=== PATIENT | male | born 1945 | race Caucasian/White ===

== ENCOUNTER 2018-01-13 05:11 | Observation (INO) | payer OTHER ==
[~2018-01-13] VITALS: Ht 172.7 cm; Wt 90.7 kg
[2018-01-13] VITALS (13 sets, daily range): BP systolic 106–160; BP diastolic 47–84; PULSE 57–68; RESP 16–20; TEMP 96.6–97.8; O2SAT 91–97
[2018-01-13] MEDS ORDERED: ASPI81CH7 CHEW (05:40)
[2018-01-13] MEDS ORDERED: CITA10TA4 PO (05:40)
[2018-01-13] MEDS ORDERED: VENTAER INH (05:40)
[2018-01-13] MEDS ORDERED: OXYB5TAB8 PO (05:40)
[2018-01-13] MEDS ORDERED: FISHCAP4 PO (05:40)
[2018-01-13] MEDS ORDERED: AMLO10TA2 PO (05:40)
[2018-01-13] MEDS ORDERED: ATOR80TA45 PO (05:40)
[2018-01-13 05:48] LABS: AUTOMATED NEUTROPHIL # 6.9 TH/MM3 (1.8-7.7); BASOPHIL % 0.4 % (0.0-2.0); EOSINOPHIL # 0.3 TH/MM3 (0-0.4); HEMATOCRIT 44.4 % (39.0-51.0); HEMOGLOBIN 14.9 GM/DL (13.0-17.0); LYMPH % 24.6 % (9.0-44.0); LYMPHOCYTE # 2.6 TH/MM3 (1.0-4.8); MEAN CELL VOLUME 93.3 FL (80.0-100.0); MEAN CORPUSCULAR HEMOGLOBIN 31.4 PG (27.0-34.0); MEAN CORPUSCULAR HGB CONC 33.7 % (32.0-36.0); MEAN PLATELET VOLUME 7.6 FL (7.0-11.0); MONOCYTE # 0.7 TH/MM3 (0-0.9); PLATELET COUNT 209 TH/MM3 (150-450); RED BLOOD COUNT 4.76 MIL/MM3 (4.50-5.90); RED CELL DISTRIBUTION WIDTH 12.2 % (11.6-17.2); WHITE BLOOD COUNT 10.5 TH/MM3 (4.0-11.0)
[2018-01-13] MEDS ORDERED: SODIUM CHLOR 0.9% 1000 ML INJ 1,000 ML IV SCH (05:48)
--- NOTE | 2018-01-13 05:57 | PD ---
HPI Chief Complaint: GI Complaint Time Seen by Provider: 05:48 Travel History International Travel<30 days: No Contact w/Intl Traveler<30days: No Traveled to known affect area: No History of Present Illness HPI The patient is a 72-year-old male that woke up at approximately 3:00 in the morning and had abdominal cramping and 3 episodes of bright red stool. He has a history of diverticulosis without diverticulitis. He also has a history of a 4.2 cm abdominal aortic aneurysm. The patient denies any abdominal pain or nausea. He denies any fever. The patient fainted twice this morning, once from a standing position and wants from the sitting position. PFSH Past Medical History AAA: Yes Heart Rhythm Problems: Yes Cardiovascular Problems: Yes (PVD) High Cholesterol: Yes COPD: Yes Diverticulitis: Yes ?: Not Social History Alcohol Use: No Tobacco Use: Yes (2PPD) Substance Use: No Allergies-Medications (Allergen,Severity, Reaction): Coded Allergies: No Known Allergies (Unverified , 01/13/18) Reported Meds & Prescriptions Reported Meds & Active Scripts Active Reported Ventolin Hfa 18 GM Inh (Albuterol Sulfate) 90 Mcg/Act Aer 2 Puff INH Q4-6H PRN Fish Oil + D3 (Fish Oil-Cholecalciferol) 1,200-1,000 Mg-Unit Cap 1 Cap PO DAILY Aspirin Children's (Aspirin) 81 Mg Chew 81 Mg CHEW DAILY Amlodipine (Amlodipine Besylate) 10 Mg Tab 10 Mg PO DAILY Ditropan (Oxybutynin Chloride) 5 Mg Tab 5 Mg PO Q12HR Atorvastatin (Atorvastatin Calcium) 80 Mg Tab 80 Mg PO HS Citalopram (Citalopram Hydrobromide) 10 Mg Tab 10 Mg PO DAILY Review of Systems Except as stated in HPI: all other systems reviewed are Neg Physical Exam Narrative GENERAL: The patient is alert, oriented 3 in no apparent distress. His vital signs show blood pressure 116/57 and repeat 109/53. The rest of the vital signs are normal. SKIN: Focused skin assessment warm/dry. HEAD: Atraumatic. Normocephalic. EYES: Pupils equal and round. No scleral icterus. No injection or drainage. ENT: No nasal bleeding or discharge. Mucous membranes pink and moist. NECK: Trachea midline. No JVD. CARDIOVASCULAR: Regular rate and rhythm. No murmur appreciated. RESPIRATORY: No accessory muscle use. Clear to auscultation. Breath sounds equal bilaterally. GASTROINTESTINAL: Abdomen soft, non-tender, nondistended. Hepatic and splenic margins not palpable. No guarding or rebound is present. MUSCULOSKELETAL: No obvious deformities. No clubbing. No cyanosis. No edema. NEUROLOGICAL: Awake and alert. No obvious cranial nerve deficits. Motor grossly within normal limits. Normal speech. PSYCHIATRIC: Appropriate mood and affect; insight and judgment normal. RECTAL EXAM: No masses or tenderness, stool is Bright red strongly guaiac positive Data Data Last Documented VS Vital Signs Date Time Temp Pulse Resp B/P (MAP) Pulse Ox O2 Delivery O2 Flow Rate FiO2 01/13/18 07:01 97.8 61 18 146/66 (92) 97 Nasal Cannula 2.00 Orders Orders Complete Blood Count With Diff (01/13/18 05:24) Comprehensive Metabolic Panel (01/13/18 05:24) Prothrombin Time / Inr (Pt) (01/13/18 05:24) Act Partial Throm Time (Ptt) (01/13/18 05:24) Ecg Monitoring (01/13/18 05:24) Orthostatic Vital Signs (01/13/18 05:24) Oximetry (01/13/18 05:24) Oxygen Administration (01/13/18 05:24) Iv Access Insert/Monitor (01/13/18 05:24) Type And Screen (01/13/18 05:24) Urinalysis - C+S If Indicated (01/13/18 05:48) Sodium Chlor 0.9% 1000 Ml Inj (Ns 1000 M (01/13/18 05:48) Sodium Chloride 0.9% Flush (Ns Flush) (01/13/18 06:00) Lipase (01/13/18 05:20) Labs Laboratory Tests Test 01/13/18 05:20 White Blood Count 10.5 TH/MM3 Red Blood Count 4.76 MIL/MM3 Hemoglobin 14.9 GM/DL Hematocrit 44.4 % Mean Corpuscular Volume 93.3 FL Mean Corpuscular Hemoglobin 31.4 PG Mean Corpuscular Hemoglobin Concent 33.7 % Red Cell Distribution Width 12.2 % Platelet Count 209 TH/MM3 Mean Platelet Volume 7.6 FL Neutrophils (%) (Auto) 65.0 % Lymphocytes (%) (Auto) 24.6 % Monocytes (%) (Auto) 7.0 % Eosinophils (%) (Auto) 3.0 % Basophils (%) (Auto) 0.4 % Neutrophils # (Auto) 6.9 TH/MM3 Lymphocytes # (Auto) 2.6 TH/MM3 Monocytes # (Auto) 0.7 TH/MM3 Eosinophils # (Auto) 0.3 TH/MM3 Basophils # (Auto) 0.0 TH/MM3 CBC Comment DIFF FINAL Differential Comment Prothrombin Time 10.9 SEC Prothromb Time International Ratio 1.1 RATIO Activated Partial Thromboplast Time 25.4 SEC Blood Urea Nitrogen 17 MG/DL Creatinine 0.99 MG/DL Random Glucose 157 MG/DL Total Protein 7.0 GM/DL Albumin 3.2 GM/DL Calcium Level 9.0 MG/DL Alkaline Phosphatase 127 U/L Aspartate Amino Transf (AST/SGOT) 13 U/L Alanine Aminotransferase (ALT/SGPT) 28 U/L Total Bilirubin 0.3 MG/DL Sodium Level 141 MEQ/L Potassium Level 4.0 MEQ/L Chloride Level 109 MEQ/L Carbon Dioxide Level 26.0 MEQ/L Anion Gap 6 MEQ/L Estimat Glomerular Filtration Rate 74 ML/MIN Lipase 102 U/L [facility] Medical Decision Making Medical Screen Exam Complete: Yes Emergency Medical Condition: Yes Medical Record Reviewed: Yes Interpretation(s) The CBC shows a normal hemoglobin of 14.9. Differential Diagnosis Diverticular bleed, aorto-extremely unlikely and enteric fistula, other GI bleed Narrative Course Dr. solares is taking over the patient at this time, the patient did faint twice , once standing in one sitting and should be admitted for 23 hour observation until he is known to be stable and rehydrated. Bill Montesinos MD Jan 13, 2018 05:57
[2018-01-13 06:00] LABS: CHLORIDE 109 MEQ/L (98-107); SODIUM (NA) 141 MEQ/L (136-145)
[2018-01-13] MEDS ORDERED: SODIUM CHLORIDE 0.9% FLUSH 10 ML FLUSH IVF PRN (06:00)
[2018-01-13 06:04] LABS: ALBUMIN 3.2 GM/DL (3.4-5.0); BLOOD UREA NITROGEN 17 MG/DL (7-18); GLUCOSE,RANDOM 157 MG/DL (74-106); INTERNATIONAL NORMALIZED RATIO 1.1 RATIO; PROTHROMBIN TIME - PATIENT 10.9 SEC (9.8-11.6)
[2018-01-13 06:06] LABS: ALT (GPT) 28 U/L (12-78); AST (GOT) 13 U/L (15-37)
[2018-01-13 06:07] LABS: CREATININE 0.99 MG/DL (0.60-1.30); GLOMERULAR FILTRATION RATE 74 ML/MIN (>89)
[2018-01-13 06:08] LABS: TOTAL BILIRUBIN ADULT 0.3 MG/DL (0.2-1.0)
[2018-01-13 06:09] LABS: ALKALINE PHOSPHATASE 127 U/L (45-117)
[2018-01-13] MEDS ORDERED: SODIUM CHLORIDE 0.9% FLUSH 10 ML FLUSH IV FLUSH PRN (08:00)
[2018-01-13] MEDS ORDERED: SENNOSIDES 8.6 MG TAB PO PRN (08:00)
[2018-01-13] MEDS ORDERED: NALOXONE HCL 0.4 MG/ML AMP IV PUSH PRN (08:00)
[2018-01-13] MEDS ORDERED: ACETAMINOPHEN 325 MG TAB PO PRN (08:00)
[2018-01-13] MEDS ORDERED: LACTULOSE SYRUP 20 GM/30 ML CUP PO PRN (08:00)
[2018-01-13] MEDS ORDERED: BISACODYL 10 MG SUPP RECTAL PRN (08:00)
[2018-01-13] MEDS ORDERED: MAGNESIUM HYDROXIDE SUSP 30 ML CUP PO PRN (08:00)
--- NOTE | 2018-01-13 08:04 | PD ---
Physical Exam Date Seen by Provider: Jan 13, 2018 Narrative Care was assumed at [address] Montesinos. This patient had presented with 2 episodes of syncope following 3 episodes of grossly bloody stool. Onset was in the wee hours of the morning. Please see Dr. Montesinos's H&P for full details. This patient has a history of diverticulosis. He also has a history of a AAA which is being observed. Data Data Last Documented VS Vital Signs Date Time Temp Pulse Resp B/P (MAP) Pulse Ox O2 Delivery O2 Flow Rate FiO2 01/13/18 08:00 97 Nasal Cannula 2.00 01/13/18 07:01 97.8 61 18 146/66 (92) Orders Orders Complete Blood Count With Diff (01/13/18 05:24) Comprehensive Metabolic Panel (01/13/18 05:24) Prothrombin Time / Inr (Pt) (01/13/18 05:24) Act Partial Throm Time (Ptt) (01/13/18 05:24) Ecg Monitoring (01/13/18 05:24) Orthostatic Vital Signs (01/13/18 05:24) Oximetry (01/13/18 05:24) Oxygen Administration (01/13/18 05:24) Iv Access Insert/Monitor (01/13/18 05:24) Type And Screen (01/13/18 05:24) Urinalysis - C+S If Indicated (01/13/18 05:48) Sodium Chlor 0.9% 1000 Ml Inj (Ns 1000 M (01/13/18 05:48) Sodium Chloride 0.9% Flush (Ns Flush) (01/13/18 06:00) Lipase (01/13/18 05:20) Ct Abd/Pel W Iv Contrast(Rout) (01/13/18 07:52) Place In Observation (01/13/18 ) Vital Signs (Adult) Q4H (01/13/18 07:56) Diet Heart Healthy (01/13/18 Breakfast) Sodium Chloride 0.9% Flush (Ns Flush) (01/13/18 08:00) Sodium Chloride 0.9% Flush (Ns Flush) (01/13/18 09:00) Acetaminophen (Tylenol) (01/13/18 08:00) Complete Blood Count With Diff (01/14/18 06:00) Resp Oxygen Josue C Titrat 1-4 L (01/13/18 ) Scd Bilateral/Knee High BECIKE.BID (01/13/18 07:56) Naloxone Inj (Narcan Inj) (01/13/18 08:00) Magnesium Hydroxide Liq (Milk Of Magnesi (01/13/18 08:00) Sennosides (Senokot) (01/13/18 08:00) Bisacodyl Supp (Dulcolax Supp) (01/13/18 08:00) Lactulose Liq (Lactulose Liq) (01/13/18 08:00) Admit Order (Ed Use Only) (01/13/18 ) Vital Signs (Adult) Q4H (01/13/18 07:57) Activity Oob With Assistance (01/13/18 07:57) Notify Dr: Other (01/13/18 07:57) Labs Laboratory Tests Test 01/13/18 05:20 White Blood Count 10.5 TH/MM3 Red Blood Count 4.76 MIL/MM3 Hemoglobin 14.9 GM/DL Hematocrit 44.4 % Mean Corpuscular Volume 93.3 FL Mean Corpuscular Hemoglobin 31.4 PG Mean Corpuscular Hemoglobin Concent 33.7 % Red Cell Distribution Width 12.2 % Platelet Count 209 TH/MM3 Mean Platelet Volume 7.6 FL Neutrophils (%) (Auto) 65.0 % Lymphocytes (%) (Auto) 24.6 % Monocytes (%) (Auto) 7.0 % Eosinophils (%) (Auto) 3.0 % Basophils (%) (Auto) 0.4 % Neutrophils # (Auto) 6.9 TH/MM3 Lymphocytes # (Auto) 2.6 TH/MM3 Monocytes # (Auto) 0.7 TH/MM3 Eosinophils # (Auto) 0.3 TH/MM3 Basophils # (Auto) 0.0 TH/MM3 CBC Comment DIFF FINAL Differential Comment Prothrombin Time 10.9 SEC Prothromb Time International Ratio 1.1 RATIO Activated Partial Thromboplast Time 25.4 SEC Blood Urea Nitrogen 17 MG/DL Creatinine 0.99 MG/DL Random Glucose 157 MG/DL Total Protein 7.0 GM/DL Albumin 3.2 GM/DL Calcium Level 9.0 MG/DL Alkaline Phosphatase 127 U/L Aspartate Amino Transf (AST/SGOT) 13 U/L Alanine Aminotransferase (ALT/SGPT) 28 U/L Total Bilirubin 0.3 MG/DL Sodium Level 141 MEQ/L Potassium Level 4.0 MEQ/L Chloride Level 109 MEQ/L Carbon Dioxide Level 26.0 MEQ/L Anion Gap 6 MEQ/L Estimat Glomerular Filtration Rate 74 ML/MIN Lipase 102 U/L MDM Supervised Visit with PONCHO: No Narrative Course Vital Signs Date Time Temp Pulse Resp B/P (MAP) Pulse Ox O2 Delivery O2 Flow Rate FiO2 01/13/18 08:00 97 Nasal Cannula 2.00 01/13/18 07:01 97.8 61 18 146/66 (92) 97 Nasal Cannula 2.00 01/13/18 06:02 58 16 132/59 (83) 95 Room Air 01/13/18 05:20 95 Nasal Cannula 2.00 01/13/18 05:20 59 16 113/57 (75) 59 16 106/47 (66) 01/13/18 05:15 60 20 109/53 (71) 91 01/13/18 05:13 97.3 68 18 116/57 (76) 93 CBC & BMP Diagram 01/13/18 05:20 Total Protein 7.0, Albumin 3.2 L, Calcium Level 9.0, Alkaline Phosphatase 127 H , Aspartate Amino Transf (AST/SGOT) 13 L, Alanine Aminotransferase (ALT/SGPT) 28 , Total Bilirubin 0.3 Because of the 2 episodes of syncope, the patient will be admitted to observation to follow his vital signs and H&H. I have ordered a CT of the abdomen and pelvis to rule out another cause for GI bleeding other than diverticulosis. Physician Communication Physician Communication Dr. Osborne Admitting Information Admitting Physician Requests: Observation Condition: Stable Alis Tello MD Jan 13, 2018 08:04
[2018-01-13] MEDS: SODIUM CHLORIDE 0.9% FLUSH 10 ML FLUSH IV FLUSH SCH ×2 (09:00→21:00)
[2018-01-13 09:27] LABS: BILIRUBIN, URINE NEG (NEG); BLOOD, URINE NEG (NEG); GLUCOSE,URINE NEG (NEG); KETONE, URINE NEG (NEG); NITRITE,URINE NEG (NEG); PH, URINE 5.5 (5.0-8.5); URINE COLOR YELLOW (YELLW/STRAW); URINE LEUKOCYTE ESTERASE NEG (NEG)
[2018-01-13] MEDS ORDERED: IOHEXOL 350 MG/ML 10 ML VIAL (for RAD DIAG) IVCONTRAST ONE (09:35)
[2018-01-13 09:36] LABS: HYALINE CAST, URINE 15-19 /lpf (RARE); SQUAMOUS EPITHELIAL CELL URINE 0-2 /hpf (0-5); WBC, URINE 0-2 /hpf (0-5)
[2018-01-13 09:37] LABS: MUCUS URINE FEW /lpf (OCC)
--- NOTE | 2018-01-13 09:51 | RADRPT ---
EXAM DATE: 01/13/2018 9:35 AM EDT AGE/SEX: 72 years / Male INDICATIONS: Abdominal cramping. Rectal bleeding. CLINICAL DATA: This is the patient's initial encounter. Patient reports that signs and symptoms have been present for 1 day and indicates a pain score of 0/10. MEDICAL/SURGICAL HISTORY: Aneurysm, abdominal. Chronic obstructive pulmonary disease. Diverti culosis. None. ORAL CONTRAST: No oral contrast ingested. RADIATION DOSE: 17.44 CTDI (mGy) COMPARISON: No prior exams available for comparison. TECHNIQUE: Multiple contiguous axial images were obtained through the abdomen and pelvis following b olus infusion of 95 ml Omnipaque 350 (iohexol) nonionic water-soluble contrast as a single exam dos e. No oral contrast ingested. Using automated exposure control and adjustment of the mA and/or kV ac cording to patient size, radiation dose was kept as low as reasonably achievable to obtain optimal di agnostic quality images. DICOM format image data is available electronically for review and comparis on. FINDINGS: Lower Lungs: There is minimal linear density seen at the posterior lateral left lung base. Liver: The liver demonstrates diffuse decreased attenuation. There is a 2.8 cm cyst at the posterior right lobe of the liver. The gallbladder is nondistended. Spleen: Homogeneous density without enlargement. Pancreas: Unremarkable without mass or calcification. Kidneys: Normal in size and shape. No evidence of mass or hydronephrosis. Adrenal Glands: Unremarkable. Aorta: There is obstructive change of the aorta. There is aneurysmal dilatation of the infrarenal a bdominal aorta measuring up to 4.8 cm in diameter. The aneurysm ends at the aortic bifurcation. The a neurysm extends over approximately 7.5 cm length. Bowel/Mesentery: There are diverticula seen throughout the colon being most numerous in the sigmoid region. Surrounding inflammatory change is not clearly seen. Abdominal Wall: Intact. Retroperitoneum: No evidence of adenopathy in the retrocrural, para-aortic, or deep pelvic regions. Bladder: Contours are smooth. Reproductive Organs: The patient is status post prostatectomy. Clips are seen in the pelvis. Inguinal: The inguinal region is unremarkable without evidence of adenopathy. Bony Structures: There is a 1.1 cm focal area of sclerosis at the inferior aspect of the L2 vertebra l body. No other sclerotic lesions are seen. CONCLUSION: 1. Numerous colonic diverticula without definite inflammatory change. 2. 4.8 cm abdominal aortic aneurysm. 3. Hepatic steatosis. 4. Solitary sclerotic focus at the L2 vertebral body. This is nonspecific. A bone island could have this appearance. A sclerotic metastatic lesion could've this appearance. 5. The patient is status post prostatectomy. Electronically signed by: Segundo Ac MD 01/13/2018 9:50 AM EDT
[2018-01-13] MEDS: NICOTINE 14 MG/24 HR PATCH T-DERMAL SCH (12:40)
--- NOTE | 2018-01-13 13:34 | HHI.HP ---
HPI [facility] Admission Diagnosis GI bleed, syncope Diagnoses: Chief Complaint: Passed out, large bloody bowel movement. Travel History International Travel<30 Days: No Contact w/Intl Traveler <30 Da: No Traveled to Known Affected Are: No History of Present Illness Mr. Licea is a pleasant 72-year-old male with a history of AAA, COPD who presents to the emergency department on 01/13/2018 after he had a bright red bloody stool. He also passed out for several seconds. Patient did not have any jerking movements or confusion afterwards. Since he was admitted he has not had any further episodes of rectal bleed. On admission temperature 97.3F, pulse 68, respiration 18, blood pressure 116/57, pulse oximetry 93% on 2 L. Currently patient is on room air. Denies any chest pain, shortness of breath, fever or chills. Denies any changes in bladder habits. Review of Systems Except as stated in HPI: all other systems reviewed are Neg Past Family Social History Past Medical History AAA, PVD, hyperlipidemia, COPD, diverticulitis Past Surgical History Prostatectomy Reported Medications Ventolin Hfa 18 GM Inh (Albuterol Sulfate) 90 Mcg/Act Aer 2 Puff INH Q4-6H PRN Fish Oil + D3 (Fish Oil-Cholecalciferol) 1,200-1,000 Mg-Unit Cap 1 Cap PO DAILY Aspirin Children's (Aspirin) 81 Mg Chew 81 Mg CHEW DAILY Amlodipine (Amlodipine Besylate) 10 Mg Tab 10 Mg PO DAILY Ditropan (Oxybutynin Chloride) 5 Mg Tab 5 Mg PO Q12HR Atorvastatin (Atorvastatin Calcium) 80 Mg Tab 80 Mg PO HS Citalopram (Citalopram Hydrobromide) 10 Mg Tab 10 Mg PO DAILY Allergies: Coded Allergies: No Known Allergies (Unverified , 01/13/18) Family History Family history is unknown to patient. Social History Patient continues to smoke 1-2 pack a day. Denies using alcohol or illicit drugs. Physical Exam Vital Signs Vital Signs Date Time Temp Pulse Resp B/P (MAP) Pulse Ox O2 Delivery O2 Flow Rate FiO2 01/13/18 13:02 62 01/13/18 09:47 01/13/18 09:15 65 18 141/67 (91) 97 Nasal Cannula 2.00 01/13/18 08:00 97 Nasal Cannula 2.00 01/13/18 07:01 97.8 61 18 146/66 (92) 97 Nasal Cannula 2.00 01/13/18 06:02 58 16 132/59 (83) 95 Room Air 01/13/18 05:20 95 Nasal Cannula 2.00 01/13/18 05:20 59 16 113/57 (75) 59 16 106/47 (66) 01/13/18 05:15 60 20 109/53 (71) 91 01/13/18 05:13 97.3 68 18 116/57 (76) 93 Physical Exam GENERAL: This is a well-nourished, well-developed patient, in no apparent distress. SKIN: No rashes, ecchymoses or lesions. Warm and dry. HEAD: Atraumatic. Normocephalic. No temporal or scalp tenderness. EYES: Pupils equal round and reactive. No injection or drainage. ENT: Nose without bleeding, purulent drainage or septal hematoma. Airway patent. NECK: Trachea midline. No lymphadenopathy. Supple, nontender, no meningeal signs. CARDIOVASCULAR: Regular rate and rhythm without murmurs, gallops, or rubs. No JVD. RESPIRATORY: Clear to auscultation. Breath sounds equal bilaterally. No wheezes , rales, or rhonchi. GASTROINTESTINAL: Abdomen soft, non-tender, nondistended. No guarding. MUSCULOSKELETAL: Extremities without clubbing, cyanosis, or edema. NEUROLOGICAL: Awake and alert. Cranial nerves II through XII intact. No focal neurological deficits. Normal speech. Laboratory Laboratory Tests Test 01/13/18 05:20 01/13/18 09:05 White Blood Count 10.5 Red Blood Count 4.76 Hemoglobin 14.9 Hematocrit 44.4 Mean Corpuscular Volume 93.3 Mean Corpuscular Hemoglobin 31.4 Mean Corpuscular Hemoglobin Concent 33.7 Red Cell Distribution Width 12.2 Platelet Count 209 Mean Platelet Volume 7.6 Neutrophils (%) (Auto) 65.0 Lymphocytes (%) (Auto) 24.6 Monocytes (%) (Auto) 7.0 Eosinophils (%) (Auto) 3.0 Basophils (%) (Auto) 0.4 Neutrophils # (Auto) 6.9 Lymphocytes # (Auto) 2.6 Monocytes # (Auto) 0.7 Eosinophils # (Auto) 0.3 Basophils # (Auto) 0.0 CBC Comment DIFF FINAL Differential Comment Prothrombin Time 10.9 Prothromb Time International Ratio 1.1 Activated Partial Thromboplast Time 25.4 Blood Urea Nitrogen 17 Creatinine 0.99 Random Glucose 157 Total Protein 7.0 Albumin 3.2 Calcium Level 9.0 Alkaline Phosphatase 127 Aspartate Amino Transf (AST/SGOT) 13 Alanine Aminotransferase (ALT/SGPT) 28 Total Bilirubin 0.3 Sodium Level 141 Potassium Level 4.0 Chloride Level 109 Carbon Dioxide Level 26.0 Anion Gap 6 Estimat Glomerular Filtration Rate 74 Lipase 102 Urine Collection Type VOIDED Urine Color YELLOW Urine Turbidity CLEAR Urine pH 5.5 Urine Specific [place] 1.025 Urine Protein NEG Urine Glucose (UA) NEG Urine Ketones NEG Urine Occult Blood NEG Urine Nitrite NEG Urine Bilirubin NEG Urine Urobilinogen 0.2 Urine Leukocyte Esterase NEG Urine WBC 0-2 Urine Squamous Epithelial Cells 0-2 Urine Hyaline Casts 15-19 Urine Mucus FEW Microscopic Urinalysis Comment CULT NOT INDICATED Result Diagram: 01/13/18 0520 01/13/18 0520 Imaging Last Impressions Abdomen/Pelvis CT 01/13/18 0752 Signed Impressions: CONCLUSION: 1. Numerous colonic diverticula without definite inflammatory change. 2. 4.8 cm abdominal aortic aneurysm. 3. Hepatic steatosis. 4. Solitary sclerotic focus at the L2 vertebral body. This is nonspecific. A b one island could have this appearance. A sclerotic metastatic lesion could've t his appearance. 5. The patient is status post prostatectomy. Carotid Artery Ultrasound 01/13/18 0000 Signed Impressions: CONCLUSION: Mild plaque is seen at the carotid bulb regions without a significa nt stenosis. Caprini VTE Risk Assessment Caprini VTE Risk Assessment: Mod/High Risk (score >= 2) Caprini Risk Assessment Model Point Value = 1 Point Value = 2 Point Value = 3 Point Value = 5 Age 41-60 Minor surgery BMI > 25 kg/m2 Swollen legs Varicose veins or History of unexplained or recurrent spontaneous Oral contraceptives or hormone replacement Sepsis (< 1 month) Serious lung disease, including pneumonia (< 1 month) Abnormal pulmonary function Acute myocardial infarction Congestive heart failure (< 1 month) History of inflammatory bowel disease Medical patient at bed rest Age 61-74 Arthroscopic surgery Major open surgery (> 45 min) Laparoscopic surgery (> 45 min) Malignancy Confined to bed (> 72 hours) Immobilizing plaster cast Central venous access Age >= 75 History of VTE Family history of VTE Factor V Leiden Prothrombin [id number] Lupus anticoagulant Anticardiolipin antibodies Elevated serum homocysteine Heparin-induced thrombocytopenia Other congenital or acquired thrombophilia Stroke (< 1 month) Elective arthroplasty Hip, pelvis, or leg fracture Acute spinal cord injury (< 1 month) Prophylaxis Regimen Total Risk Factor Score Risk Level Prophylaxis Regimen 0-1 Low Early ambulation 2 Moderate Order ONE of the following: *Sequential Compression Device (SCD) *Heparin 5000 units SQ BID 3-4 Higher Order ONE of the following medications: *Heparin 5000 units SQ TID *Enoxaparin/Lovenox 40 mg SQ daily (WT < 150 kg, CrCl > 30 mL/min) *Enoxaparin/Lovenox 30 mg SQ daily (WT < 150 kg, CrCl > 10-29 mL/min) *Enoxaparin/Lovenox 30 mg SQ BID (WT < 150 kg, CrCl > 30 mL/min) AND/OR *Sequential Compression Device (SCD) 5 or more Highest Order ONE of the following medications: *Heparin 5000 units SQ TID (Preferred with Epidurals) *Enoxaparin/Lovenox 40 mg SQ daily (WT < 150 kg, CrCl > 30 mL/min) *Enoxaparin/Lovenox 30 mg SQ daily (WT < 150 kg, CrCl > 10-29 mL/min) *Enoxaparin/Lovenox 30 mg SQ BID (WT < 150 kg, CrCl > 30 mL/min) AND *Sequential Compression Device (SCD) Assessment and Plan Problem List: (1) AAA (abdominal aortic aneurysm) ICD Code: I71.4 - Abdominal aortic aneurysm, without rupture (2) Syncope, vasovagal ICD Code: R55 - Syncope and collapse (3) Rectal bleed ICD Code: K62.5 - Hemorrhage of anus and rectum Assessment and Plan Mr. Licea is a pleasant 72-year-old male with a history of PVD, AAA, COPD, hyperlipidemia who presents to the emergency department after he had a syncopal episode as well as bloody bowel movement around 3 AM in the morning. CT abdomen pelvis indicated AAA 4.8 cm. Acute rectal bleed -Hemoglobin 14.9. No further episodes of rectal bleed. -We will check CBC in the morning. -Patient can likely be evaluated in the outpatient setting in the GI clinic. Increased AAA -Previous aortic aneurysm was 4.3 cm. During this admission abdomen pelvis CT indicates AAA 4.8 cm. -We will consult vascular surgery Dr. Laird will follow this patient in the outpatient setting. -Patient might need cardiac evaluation as well prior to possible surgical intervention Tobacco abuse - counseled patient regarding tobacco cessation. Full code. Ambulation, SCDs. Symone Osborne DO Jan 13, 2018 13:34
--- NOTE | 2018-01-13 15:05 | PD.CAR.PN ---
CVT Progress Note Subjective/Hospital Course: Patient with known diverticulosis and previous GI bleed now hemoglobin is stable Patient did not have colonoscopy for about 8 years and will required that prior to any intervention patient does have 4.9 Centimeter in diameter abdominal aortic infrarenal aneurysm and in this size endovascular stenting certainly should be considered Prior to this patient needs a GI workup and cardiac workup which can be done as outpatient. In addition patient has fairly severe peripheral vascular disease but anatomic considerations are such that patient will probably be candidate for endovascular repair with a good neck Will follow patient up as outpatient Objective: Vital Signs Date Time Temp Pulse Resp B/P (MAP) Pulse Ox O2 Delivery O2 Flow Rate FiO2 01/13/18 13:02 62 01/13/18 12:00 96.6 57 16 137/73 (94) 92 01/13/18 09:47 01/13/18 09:15 65 18 141/67 (91) 97 Nasal Cannula 2.00 01/13/18 08:00 97 Nasal Cannula 2.00 01/13/18 07:01 97.8 61 18 146/66 (92) 97 Nasal Cannula 2.00 01/13/18 06:02 58 16 132/59 (83) 95 Room Air 01/13/18 05:20 95 Nasal Cannula 2.00 01/13/18 05:20 59 16 113/57 (75) 59 16 106/47 (66) 01/13/18 05:15 60 20 109/53 (71) 91 01/13/18 05:13 97.3 68 18 116/57 (76) 93 Labs: Laboratory Tests Test 01/13/18 05:20 01/13/18 09:05 White Blood Count 10.5 TH/MM3 (4.0-11.0) Red Blood Count 4.76 MIL/MM3 (4.50-5.90) Hemoglobin 14.9 GM/DL (13.0-17.0) Hematocrit 44.4 % (39.0-51.0) Mean Corpuscular Volume 93.3 FL (80.0-100.0) Mean Corpuscular Hemoglobin 31.4 PG (27.0-34.0) Mean Corpuscular Hemoglobin Concent 33.7 % (32.0-36.0) Red Cell Distribution Width 12.2 % (11.6-17.2) Platelet Count 209 TH/MM3 (150-450) Mean Platelet Volume 7.6 FL (7.0-11.0) Neutrophils (%) (Auto) 65.0 % (16.0-70.0) Lymphocytes (%) (Auto) 24.6 % (9.0-44.0) Monocytes (%) (Auto) 7.0 % (0.0-8.0) Eosinophils (%) (Auto) 3.0 % (0.0-4.0) Basophils (%) (Auto) 0.4 % (0.0-2.0) Neutrophils # (Auto) 6.9 TH/MM3 (1.8-7.7) Lymphocytes # (Auto) 2.6 TH/MM3 (1.0-4.8) Monocytes # (Auto) 0.7 TH/MM3 (0-0.9) Eosinophils # (Auto) 0.3 TH/MM3 (0-0.4) Basophils # (Auto) 0.0 TH/MM3 (0-0.2) CBC Comment DIFF FINAL Differential Comment Prothrombin Time 10.9 SEC (9.8-11.6) Prothromb Time International Ratio 1.1 RATIO Activated Partial Thromboplast Time 25.4 SEC (24.3-30.1) Blood Urea Nitrogen 17 MG/DL (7-18) Creatinine 0.99 MG/DL (0.60-1.30) Random Glucose 157 MG/DL (74-106) Total Protein 7.0 GM/DL (6.4-8.2) Albumin 3.2 GM/DL (3.4-5.0) Calcium Level 9.0 MG/DL (8.5-10.1) Alkaline Phosphatase 127 U/L (45-117) Aspartate Amino Transf (AST/SGOT) 13 U/L (15-37) Alanine Aminotransferase (ALT/SGPT) 28 U/L (12-78) Total Bilirubin 0.3 MG/DL (0.2-1.0) Sodium Level 141 MEQ/L (136-145) Potassium Level 4.0 MEQ/L (3.5-5.1) Chloride Level 109 MEQ/L (98-107) Carbon Dioxide Level 26.0 MEQ/L (21.0-32.0) Anion Gap 6 MEQ/L (5-15) Estimat Glomerular Filtration Rate 74 ML/MIN (>89) Lipase 102 U/L (73-393) Urine Collection Type VOIDED Urine Color YELLOW (YELLW/STRAW) Urine Turbidity CLEAR (CLEAR) Urine pH 5.5 (5.0-8.5) Urine Specific [place] 1.025 (1.002-1.035) Urine Protein NEG mg/dL (NEG-TRACE) Urine Glucose (UA) NEG mg/dL (NEG) Urine Ketones NEG mg/dL (NEG) Urine Occult Blood NEG (NEG) Urine Nitrite NEG (NEG) Urine Bilirubin NEG (NEG) Urine Urobilinogen 0.2 MG/DL (LESS THAN Urine Leukocyte Esterase NEG (NEG) Urine WBC 0-2 /hpf (0-5) Urine Squamous Epithelial Cells 0-2 /hpf (0-5) Urine Hyaline Casts 15-19 /lpf (RARE) Urine Mucus FEW /lpf (OCC) Microscopic Urinalysis Comment CULT NOT INDICATED Result Diagram: 01/13/1820 01/13/18 0520 Norma Bay MD Jan 13, 2018 15:05
--- NOTE | 2018-01-13 15:24 | MB ---
cc: Norma Bay MD DATE: 01/13/2018 CONSULTING PHYSICIAN: Dr. Bay, Vascular Surgery REASON FOR CONSULTATION: Abdominal aortic aneurysm. HISTORY OF PRESENT DISEASE: This 72-year-old male is admitted to the hospital with two episodes of syncope and apparently grossly bloody stool. The patient is worked up, found to have generally normal hemoglobin yet on the CT scan of the abdomen, he is found to have about a 4.9 cm abdominal aortic aneurysm in the infrarenal position. The question arises about the significance of this finding in the clinical setting, hence the consultation. PAST MEDICAL HISTORY: Previous apparently GI bleeding in the past, COPD, atrial fibrillation, peripheral vascular disease and diverticulosis. PAST SURGICAL HISTORY: The patient had prostate surgery. MEDICATIONS: Multiple and can be found in the record. SOCIAL HISTORY: The patient smokes 2 packs per day continuously. Does not drink. PHYSICAL EXAMINATION: GENERAL: Shows a pleasant 72-year-old male appearing much older than his actual age. HEENT: Normocephalic. No trauma to the head. Pupils equal, reactive. Extraocular muscles intact. NECK: Supple. Bilateral good pulses and bilateral 3/6 bruits. CHEST: Bilateral breath sounds, decreased over both lungs pickard, consistent with moderate degree of chronic obstructive pulmonary disease. HEART: Regular rhythm. ABDOMEN: Soft, active bowel sounds. Without knowing the patient's aneurysm, I could not really feel it. Scar from previous prostatectomy. EXTREMITIES: Within normal limits with no signs of acute vascular deficits, however, femoral pulses are not very strong, but are palpable both pedal, dorsalis pedis. Posterior tibial only by Doppler. The patient clearly has significant or peripheral vascular changes. BACK: Normal. IMPRESSION: A 72-year-old male with about 4.9 cm abdominal aneurysm, which has grown since he was seen here a few months ago. PLAN: At this point, the patient is in the range where endovascular repair should be considered, and I will follow the patient up as an outpatient and then scheduled him for an endovascular repair after full workup. I thank you much for referral. MD GAMA Tyler/AKBAR , 02:59 PM , 03:22 PM
--- NOTE | 2018-01-13 15:59 | RADRPT ---
EXAM DATE: 01/13/2018 3:48 PM EDT AGE/SEX: 72 years / Male INDICATIONS: Syncope. CLINICAL DATA: This is the patient's initial encounter. Patient reports that signs and symptoms have been present for 1 day and indicates a pain score of 0/10. MEDICAL/SURGICAL HISTORY: Chronic obstructive pulmonary disease. Hypercholesterolemia. Aneury sm, abdominal. Peripheral vascular disease. Irregular heartbeat. Diverticulitis. Prostate cancer. Prostatectomy. Penile implant x 3 and removal. COMPARISON: No prior exams available for comparison. VELOCITY PARAMETERS: ICA/CCA Ratio: Right 0.7 , Left 0.9 ICA: Right 71 cm/sec, Left 70 cm/sec CCA: Right 97 cm/sec, Left 74 cm/sec ECA: Right 107 cm/sec, Left 132 cm/sec Vertebral: Right 41 cm/sec antegrade, Left 41 cm/sec antegrade FINDINGS: Right Carotid: Mild arteriosclerotic plaque is visualized.The waveforms are within normal limits. Left Carotid: Mild arteriosclerotic plaque is visualized. The waveforms are within normal limits. Other: None. CONCLUSION: Mild plaque is seen at the carotid bulb regions without a significant stenosis. Electronically signed by: Segundo Ac MD 01/13/2018 3:58 PM EDT
[2018-01-14] VITALS: BP 128/68; PULSE 61; RESP 20; TEMP 96.9; O2SAT 94
[2018-01-14] MEDS ORDERED: MELATONIN 5 MG TAB PO ONE (00:15)
[2018-01-14 04:00] VITALS: BP 149/61; PULSE 62; RESP 20; TEMP 97.5; O2SAT 93
[2018-01-14 06:24] LABS: AUTOMATED NEUTROPHIL # 6.4 TH/MM3 (1.8-7.7); BASOPHIL # 0.1 TH/MM3 (0-0.2); BASOPHIL % 0.7 % (0.0-2.0); EOSINOPHIL # 0.3 TH/MM3 (0-0.4); EOSINOPHIL % 2.9 % (0.0-4.0); HEMATOCRIT 41.3 % (39.0-51.0); HEMOGLOBIN 14.1 GM/DL (13.0-17.0); LYMPH % 22.8 % (9.0-44.0); LYMPHOCYTE # 2.2 TH/MM3 (1.0-4.8); MEAN CELL VOLUME 93.2 FL (80.0-100.0); MEAN CORPUSCULAR HEMOGLOBIN 31.7 PG (27.0-34.0); MEAN CORPUSCULAR HGB CONC 34.1 % (32.0-36.0); MEAN PLATELET VOLUME 7.7 FL (7.0-11.0); MONO % 5.9 % (0.0-8.0); MONOCYTE # 0.6 TH/MM3 (0-0.9); NEUT % 67.7 % (16.0-70.0); PLATELET COUNT 195 TH/MM3 (150-450); RED BLOOD COUNT 4.43 MIL/MM3 (4.50-5.90); RED CELL DISTRIBUTION WIDTH 12.3 % (11.6-17.2); WHITE BLOOD COUNT 9.6 TH/MM3 (4.0-11.0)
--- NOTE | 2018-01-14 07:49 | HHI.PR ---
Subjective Remarks Follow-up for rectal bleed, increased abdominal aortic aneurysm. Patient is currently doing well. Resting in bed. Denies any chest pain, shortness of breath, fever or chills. He has not had any bowel movement since he came to the hospital. Denies having any further syncopal episodes. Objective Vitals Vital Signs Date Time Temp Pulse Resp B/P (MAP) Pulse Ox O2 Delivery O2 Flow Rate FiO2 01/14/18 04:00 97.5 62 20 149/61 (90) 93 01/14/18 04:00 97.5 62 20 149/61 (90) 93 01/14/18 00:00 96.9 61 20 128/68 (88) 94 01/13/18 20:00 97.2 65 18 145/71 (95) 92 01/13/18 19:48 92 21 01/13/18 16:00 96.9 62 16 160/84 (109) 96 01/13/18 15:00 63 01/13/18 13:02 62 01/13/18 12:00 96.6 57 16 137/73 (94) 92 01/13/18 09:47 01/13/18 09:15 65 18 141/67 (91) 97 Nasal Cannula 2.00 01/13/18 08:00 97 Nasal Cannula 2.00 I/O 01/13/18 01/13/18 01/13/18 01/14/18 01/14/18 01/14/18 07:00 15:00 23:00 07:00 15:00 23:00 Intake Total 1000 ml 300 ml 1020 ml 450 ml Output Total 200 ml 450 ml Balance 1000 ml 100 ml 1020 ml 0 ml Intake Oral 300 ml 1020 ml 450 ml IV Total 1000 ml Output Urine Total 200 ml 450 ml # Voids 2 4 2 # Bowel Movements 0 2 Result Diagram: 01/14/18 0542 01/13/18 0520 Imaging Last Impressions Abdomen/Pelvis CT 01/13/18 4562 Signed Impressions: CONCLUSION: 1. Numerous colonic diverticula without definite inflammatory change. 2. 4.8 cm abdominal aortic aneurysm. 3. Hepatic steatosis. 4. Solitary sclerotic focus at the L2 vertebral body. This is nonspecific. A b [place] could have this appearance. A sclerotic metastatic lesion could've t his appearance. 5. The patient is status post prostatectomy. Carotid Artery Ultrasound 01/13/18 0000 Signed Impressions: CONCLUSION: Mild plaque is seen at the carotid bulb regions without a significa nt stenosis. Objective Remarks GENERAL: Alert, oriented 3, NAD. SKIN: Warm and dry. HEAD: Normocephalic. EYES: No scleral icterus. No injection or drainage. NECK: Supple, trachea midline. No JVD or lymphadenopathy. CARDIOVASCULAR: Regular rate and rhythm without murmurs, gallops, or rubs. RESPIRATORY: Breath sounds equal bilaterally. No accessory muscle use. GASTROINTESTINAL: Abdomen soft, non-tender, nondistended. MUSCULOSKELETAL: No cyanosis, or edema. BACK: Nontender without obvious deformity. No CVA tenderness. Procedures None A/P Problem List: (1) AAA (abdominal aortic aneurysm) ICD Code: I71.4 - Abdominal aortic aneurysm, without rupture (2) Syncope, vasovagal ICD Code: R55 - Syncope and collapse (3) Rectal bleed ICD Code: K62.5 - Hemorrhage of anus and rectum Assessment and Plan Mr. Licea is a pleasant 72-year-old male with a history of PVD, AAA, COPD, hyperlipidemia who presents to the emergency department after he had a syncopal episode as well as bloody bowel movement around 3 AM in the morning. CT abdomen pelvis indicated AAA 4.8 cm. Acute rectal bleed -Hemoglobin 14.9 --> 14.1. No further episodes of rectal bleed. Slight decrease in Hgb could be due to hemodilution. -Patient can likely be evaluated in the outpatient setting in the GI clinic. Increased AAA -Previous aortic aneurysm was 4.3 cm. During this admission abdomen pelvis CT indicates AAA 4.8 cm. -vascular surgery Dr. Laird will follow this patient in the outpatient setting. -Patient might need cardiac evaluation as well prior to possible surgical intervention Tobacco abuse - counseled patient regarding tobacco cessation. Full code. Ambulation, SCDs. Discharge patient to home Condition on discharge: Improved Heart healthy Diet as tolerated Ad Cyn activity Rx written: Continue home medications. Follow-up with primary care physician within 1 week. Also follow-up with cardiology and gastroenterology. Patient will need cardiac and gastroenterology evaluation before possible AAA repair. Follow-up with vascular surgery. Symone Osborne DO Jan 14, 2018 07:49
[2018-01-14 08:00] VITALS: BP 134/63; PULSE 61; RESP 18; TEMP 98.2; O2SAT 93
[2018-01-14] MEDS ORDERED: SOD PHOSPHATE/SOD BIPHOSPHATE (ADULT) ENEMA 133ML RECTAL PRN (08:00)
[2018-01-14] MEDS: NICOTINE 14 MG/24 HR PATCH T-DERMAL SCH (08:22)
[2018-01-14] MEDS: SODIUM CHLORIDE 0.9% FLUSH 10 ML FLUSH IV FLUSH SCH (08:23)
[2018-01-14] MEDS ORDERED: REMOVE OLD PATCH T-DERMAL SCH (09:00)
== END 2018-01-14 10:57 | disposition home or self-care (01) ==
LOC: PHED 05:11 → PHEDA 08:01 → PH3A 10:04
PROVIDERS: ADMIT Hospitalist; ATTEND Hospitalist
DX: I71.4 Abdominal aortic aneurysm, without rupture (principal); R55 Syncope and collapse; K62.5 Hemorrhage of anus and rectum; J44.9 Chronic obstructive pulmonary disease, unspecified; I73.9 Peripheral vascular disease, unspecified; E78.5 Hyperlipidemia, unspecified; K57.30 Diverticulosis of large intestine without perforation or abscess without bleeding; K76.0 Fatty (change of) liver, not elsewhere classified; F17.200 Nicotine dependence, unspecified, uncomplicated; Z79.899 Other long term (current) drug therapy; Z79.82 Long term (current) use of aspirin
CPT/HCPCS: 74177; 80053; 81001; 83690; 85025; 85610; 85730; 86850; 86900; 86901; 93880; 96360; 99285; G0378; J7030; Q9967

== ENCOUNTER 2018-01-15 09:34 | Inpatient (IN) | payer OTHER, MEDICARE ==
[2018-01-15] VITALS (9 sets, daily range): BP systolic 100–149; BP diastolic 51–68; PULSE 59–66; RESP 18–20; TEMP 98.8; O2SAT 91–95
[~2018-01-15] VITALS: Ht 170.2 cm; Wt 88.6 kg
[~2018-01-15 09:34] MED LIST: AMLO10TA2 PO; ASPI81CH7 CHEW; ATOR80TA45 PO; CITA10TA4 PO; FISHCAP4 PO; OXYB5TAB8 PO; VENTAER INH
--- NOTE | 2018-01-15 10:54 | PD ---
HPI Chief Complaint: Syncope/Near-Syncope Time Seen by Provider: 10:34 Travel History International Travel<30 days: No Contact w/Intl Traveler<30days: No Traveled to known affect area: No History of Present Illness HPI Patient was admitted to [facility] on Thursday for diverticular bleed. States that this morning he noticed dark red blood in his stool and he felt weak. He was discharged from [facility] on yesterday. Denies hemoptysis, or vomiting blood, fever, chills, chest pain, shortness of breath, abdominal pain. Ports of feeling dizzy and weak like he was going to faint. Takes aspirin 81 mg which he took this morning. PFSH Past Medical History AAA: Yes Heart Rhythm Problems: Yes Cancer: Yes (prostate CA) Cardiovascular Problems: Yes (PVD) High Cholesterol: Yes Chemotherapy: No COPD: Yes Diminished Hearing: No Diverticulitis: Yes Reproductive: Yes (prostate removal 2001) Radiation Therapy: No Tetanus Vaccination: Unknown Influenza Vaccination: Yes Past Surgical History Genitourinary Surgery: Yes (penile implant x3 and implant removal /prostate removal) Social History Alcohol Use: No Tobacco Use: Yes (2PPD) Substance Use: No Allergies-Medications (Allergen,Severity, Reaction): Coded Allergies: No Known Allergies (Unverified , 01/13/18) Reported Meds & Prescriptions Reported Meds & Active Scripts Active Reported Ventolin Hfa 18 GM Inh (Albuterol Sulfate) 90 Mcg/Act Aer 2 Puff INH Q4-6H PRN Fish Oil + D3 (Fish Oil-Cholecalciferol) 1,200-1,000 Mg-Unit Cap 1 Cap PO DAILY Aspirin Children's (Aspirin) 81 Mg Chew 81 Mg CHEW DAILY Amlodipine (Amlodipine Besylate) 10 Mg Tab 10 Mg PO DAILY Ditropan (Oxybutynin Chloride) 5 Mg Tab 5 Mg PO Q12HR Atorvastatin (Atorvastatin Calcium) 80 Mg Tab 80 Mg PO HS Citalopram (Citalopram Hydrobromide) 10 Mg Tab 10 Mg PO DAILY Review of Systems Except as stated in HPI: all other systems reviewed are Neg Physical Exam Narrative GENERAL: No acute distress. SKIN: Focused skin assessment warm/dry. HEAD: Atraumatic. Normocephalic. EYES: Pupils equal and round. No scleral icterus. No injection or drainage. ENT: No nasal bleeding or discharge. Mucous membranes pink and moist. NECK: Trachea midline. No JVD. CARDIOVASCULAR: Regular rate and rhythm. No murmur appreciated. RESPIRATORY: No accessory muscle use. Clear to auscultation. Breath sounds equal bilaterally. GASTROINTESTINAL: Abdomen soft, non-tender, obese. Hepatic and splenic margins not palpable. Rectal: Bright red blood, Hemoccult positive MUSCULOSKELETAL: No obvious deformities. No clubbing. No cyanosis. No edema. NEUROLOGICAL: Awake and alert. No obvious cranial nerve deficits. Motor grossly within normal limits. Normal speech. PSYCHIATRIC: Appropriate mood and affect; insight and judgment normal. Data Data Last Documented VS Vital Signs Date Time Temp Pulse Resp B/P (MAP) Pulse Ox O2 Delivery O2 Flow Rate FiO2 01/15/18 12:00 66 18 119/54 (75) 95 01/15/18 10:30 Room Air 01/15/18 09:56 2.00 Orders Orders Electrocardiogram (01/15/18 10:15) Complete Blood Count With Diff (01/15/18 10:15) Comprehensive Metabolic Panel (01/15/18 10:15) Prothrombin Time / Inr (Pt) (01/15/18 10:15) Act Partial Throm Time (Ptt) (01/15/18 10:15) Magnesium (Mg) (01/15/18 10:15) Chest, Single Ap (01/15/18 10:15) Ecg Monitoring (01/15/18 10:15) Oximetry (01/15/18 10:15) Orthostatic Vital Signs (01/15/18 10:15) Sodium Chlor 0.9% 1000 Ml Inj (Ns 1000 M (01/15/18 11:00) Red Blood Cells (Rbc) (01/15/18 10:48) Type And Screen (01/15/18 09:55) Admit Order (Ed Use Only) (01/15/18 12:24) Labs Laboratory Tests Test 01/15/18 09:53 White Blood Count 10.1 TH/MM3 Red Blood Count 4.24 MIL/MM3 Hemoglobin 13.3 GM/DL Hematocrit 38.0 % Mean Corpuscular Volume 89.7 FL Mean Corpuscular Hemoglobin 31.4 PG Mean Corpuscular Hemoglobin Concent 35.0 % Red Cell Distribution Width 13.3 % Platelet Count 200 TH/MM3 Mean Platelet Volume 7.9 FL Neutrophils (%) (Auto) 69.7 % Lymphocytes (%) (Auto) 21.2 % Monocytes (%) (Auto) 6.4 % Eosinophils (%) (Auto) 2.4 % Basophils (%) (Auto) 0.3 % Neutrophils # (Auto) 7.0 TH/MM3 Lymphocytes # (Auto) 2.1 TH/MM3 Monocytes # (Auto) 0.6 TH/MM3 Eosinophils # (Auto) 0.2 TH/MM3 Basophils # (Auto) 0.0 TH/MM3 CBC Comment DIFF FINAL Differential Comment Prothrombin Time 10.7 SEC Prothromb Time International Ratio 1.1 RATIO Activated Partial Thromboplast Time 23.5 SEC Blood Urea Nitrogen 16 MG/DL Creatinine 1.01 MG/DL Random Glucose 122 MG/DL Total Protein 6.5 GM/DL Albumin 3.2 GM/DL Calcium Level 8.3 MG/DL Magnesium Level 2.2 MG/DL Alkaline Phosphatase 107 U/L Aspartate Amino Transf (AST/SGOT) 14 U/L Alanine Aminotransferase (ALT/SGPT) 27 U/L Total Bilirubin 0.5 MG/DL Sodium Level 140 MEQ/L Potassium Level 4.1 MEQ/L Chloride Level 107 MEQ/L Carbon Dioxide Level 25.3 MEQ/L Anion Gap 8 MEQ/L Estimat Glomerular Filtration Rate 73 ML/MIN [facility] Medical Decision Making Medical Screen Exam Complete: Yes Emergency Medical Condition: Yes Interpretation(s) ECG: Sinus rhythm, rate 63, incomplete right bundle branch block Labs: Normal white count, hematocrit slightly decreased at 38, coags normal, chemistry slightly increased glucose Last Impressions Chest X-Ray 01/15/18 1015 Signed Impressions: CONCLUSION: No acute cardiopulmonary findings. Differential Diagnosis Upper GI bleed, lower GI bleed, diverticular bleed, anemia, orthostasis Narrative Course Patient presents to the emergency department complaining of bloody stool. Patient placed on cafeteria monitor, IV access obtained, labs/orthostatic/IV fluids ordered. Bolus x 1 L ordered, then 84cc/hr. Diagnosis Primary Impression: Rectal bleed Admitting Information Admitting Physician Requests: Observation Condition: Stable Annette Pickard MD Jan 15, 2018 10:54
[2018-01-15] MEDS ORDERED: SODIUM CHLOR 0.9% 1000 ML INJ 1,000 ML IV ONE (11:00)
[2018-01-15 11:24] LABS: BASOPHIL % 0.3 % (0.0-2.0); EOSINOPHIL # 0.2 TH/MM3 (0-0.4); EOSINOPHIL % 2.4 % (0.0-4.0); HEMOGLOBIN 13.3 GM/DL (13.0-17.0); LYMPH % 21.2 % (9.0-44.0); LYMPHOCYTE # 2.1 TH/MM3 (1.0-4.8); MEAN CELL VOLUME 89.7 FL (80.0-100.0); MEAN CORPUSCULAR HEMOGLOBIN 31.4 PG (27.0-34.0); MEAN PLATELET VOLUME 7.9 FL (7.0-11.0); MONO % 6.4 % (0.0-8.0); MONOCYTE # 0.6 TH/MM3 (0-0.9); NEUT % 69.7 % (16.0-70.0); PLATELET COUNT 200 TH/MM3 (150-450); RED BLOOD COUNT 4.24 MIL/MM3 (4.50-5.90); RED CELL DISTRIBUTION WIDTH 13.3 % (11.6-17.2); WHITE BLOOD COUNT 10.1 TH/MM3 (4.0-11.0)
[2018-01-15 11:36] LABS: INTERNATIONAL NORMALIZED RATIO 1.1 RATIO; PROTHROMBIN TIME - PATIENT 10.7 SEC (9.8-11.6)
[2018-01-15 11:39] LABS: ALBUMIN 3.2 GM/DL (3.4-5.0); AST (GOT) 14 U/L (15-37); BICARBONATE 25.3 MEQ/L (21.0-32.0); BLOOD UREA NITROGEN 16 MG/DL (7-18); CALCIUM 8.3 MG/DL (8.5-10.1); CHLORIDE 107 MEQ/L (98-107); CREATININE 1.01 MG/DL (0.60-1.30); GLOMERULAR FILTRATION RATE 73 ML/MIN (>89); GLUCOSE,RANDOM 122 MG/DL (74-106); MAGNESIUM 2.2 MG/DL (1.5-2.5); SODIUM (NA) 140 MEQ/L (136-145)
[2018-01-15 11:41] LABS: ALT (GPT) 27 U/L (12-78)
[2018-01-15 11:42] LABS: ALKALINE PHOSPHATASE 107 U/L (45-117); TOTAL BILIRUBIN ADULT 0.5 MG/DL (0.2-1.0); TOTAL PROTEIN 6.5 GM/DL (6.4-8.2)
--- NOTE | 2018-01-15 11:53 | RADRPT ---
EXAM DATE: 01/15/2018 11:42 AM EDT AGE/SEX: 72 years / Male INDICATIONS: Short of breath and dizziness. CLINICAL DATA: This is the patient's initial encounter. Patient reports that signs and symptoms have been present for 1 day and indicates a pain score of 0/10. MEDICAL/SURGICAL HISTORY: . Chronic obstructive pulmonary disease. Hypercholesterolemia. Aneury sm, abdominal. Peripheral vascular disease. Irregular heartbeat. Diverticulitis. Prostate cancer. . Prostatectomy. Penile implant x 3 and removal. COMPARISON: No prior exams available for comparison. FINDINGS: A single AP view of the chest demonstrates the lungs to be symmetrically aerated without evidence of mass, infiltrate or effusion. The cardiomediastinal contours are unremarkable. Osseous structures a re intact. CONCLUSION: No acute cardiopulmonary findings. Electronically signed by: Jose Enrique Pierre MD 01/15/2018 11:52 AM EDT
[2018-01-15] MEDS ORDERED: IODIXANOL 320 MG/ML 50 ML VIAL (for RAD SPEC) I-ARTERIAL ONE (12:27)
--- NOTE | 2018-01-15 12:29 | EKG ---
Date Performed: 01/15/2018 Time Performed: 09:52:18 PTAGE: 72 years EKG: Sinus rhythm INCOMPLETE RIGHT BUNDLE BRANCH BLOCK BORDERLINE ECG NO PREVIOUS TRACING DOCTOR: Pete Barker Interpretating Date/Time 01/15/2018 12:26:11
[2018-01-15] MEDS ORDERED: SODIUM CHLORIDE 0.9% FLUSH 10 ML FLUSH IV FLUSH PRN (13:15)
[2018-01-15] MEDS ORDERED: NALOXONE HCL 0.4 MG/ML AMP IV PUSH PRN (13:15)
--- NOTE | 2018-01-15 15:21 | HHI.HP ---
HPI Service [facility] Hospitalists Primary Care Physician [facility] Admission Diagnosis GI bleed Diagnoses: Chief Complaint: Syncope Travel History International Travel<30 Days: No Contact w/Intl Traveler <30 Da: No Traveled to Known Affected Are: No History of Present Illness This is a 72-year-old male with past medical history as detailed below who presents to [facility] complaining of an episode of dark red blood in the stool and feeling weak. As per patient's who is at bedside states he passed out. The patient was recently [place] after an episode of diverticular bleed. The patient denies nausea, vomiting, hemoptysis , vomiting blood, fevers, chills, chest pain, shortness of breath, states he feels very weak and starts feeling dizzy when he sits up or stands up. The patient is on aspirin 81 mg daily which he took this morning. Review of Systems As per HPI, other systems reviewed by me and negative. Past Family Social History Past Medical History AAA, PVD, hyperlipidemia, COPD, diverticulitis Past Surgical History Prostatectomy Reported Medications Current Medications Medications (Trade) Dose Ordered Sig/Olu Route Start Time Stop Time Status Last Admin Sodium Chloride 1,000 ml @ 100 mls/hr Q10H IV 01/15/18 14:00 (NS Flush) 2 ml UNSCH PRN IV FLUSH 01/15/18 13:15 (NS Flush) 2 ml BID IV FLUSH 01/15/18 21:00 (Narcan Inj) 0.4 mg UNSCH PRN IV PUSH 01/15/18 13:15 Sodium Chloride 1,000 ml @ 84 mls/hr [id number] IV 01/15/18 13:45 Allergies: Coded Allergies: No Known Allergies (Unverified , 01/13/18) Active Ordered Medications Current Medications Medications (Trade) Dose Ordered Sig/Olu Route Start Time Stop Time Status Last Admin Sodium Chloride 1,000 ml @ 100 mls/hr Q10H IV 01/15/18 14:00 (NS Flush) 2 ml UNSCH PRN IV FLUSH 01/15/18 13:15 (NS Flush) 2 ml BID IV FLUSH 01/15/18 21:00 (Narcan Inj) 0.4 mg UNSCH PRN IV PUSH 01/15/18 13:15 Sodium Chloride 1,000 ml @ 84 mls/hr [id number] IV 01/15/18 13:45 Family History Family history is unknown to patient. Social History Patient continues to smoke 1-2 pack a day. Denies using alcohol or illicit drugs. Physical Exam Vital Signs Vital Signs Date Time Temp Pulse Resp B/P (MAP) Pulse Ox O2 Delivery O2 Flow Rate FiO2 01/15/18 13:00 63 18 149/68 (95) 94 Room Air 2.00 01/15/18 12:00 66 18 119/54 (75) 95 01/15/18 11:00 65 18 119/51 (73) 95 01/15/18 10:57 72 18 119/51 (73) 01/15/18 10:54 57 18 110/55 (73) 01/15/18 10:30 60 18 104/51 (68) 94 Room Air 01/15/18 10:00 95 Room Air 01/15/18 09:56 59 18 104/51 (68) 95 Nasal Cannula 2.00 01/15/18 09:44 65 18 100/54 (69) 92 Physical Exam GENERAL: This is a well-nourished, well-developed patient, in no apparent distress. SKIN: No rashes, ecchymoses or lesions. Cool and dry. HEAD: Atraumatic. Normocephalic. No temporal or scalp tenderness. EYES: Pupils equal round and reactive. Extraocular motions intact. No scleral icterus. No injection or drainage. ENT: Nose without bleeding, purulent drainage or septal hematoma. Throat without erythema, tonsillar hypertrophy or exudate. Uvula midline. Airway patent. NECK: Trachea midline. No JVD or lymphadenopathy. Supple, nontender, no meningeal signs. CARDIOVASCULAR: Regular rate and rhythm without murmurs, gallops, or rubs. RESPIRATORY: Clear to auscultation. Breath sounds equal bilaterally. No wheezes , rales, or rhonchi. GASTROINTESTINAL: Abdomen soft, non-tender, nondistended. No hepato-splenomegaly , or palpable masses. No guarding. MUSCULOSKELETAL: Extremities without clubbing, cyanosis, or edema. No joint tenderness, effusion, or edema noted. No calf tenderness. Negative Homans sign bilaterally. NEUROLOGICAL: Awake and alert. Cranial nerves II through XII intact. Motor and sensory grossly within normal limits. Five out of 5 muscle strength in all muscle groups. Normal speech. Laboratory Laboratory Tests Test 01/15/18 09:53 White Blood Count 10.1 Red Blood Count 4.24 Hemoglobin 13.3 Hematocrit 38.0 Mean Corpuscular Volume 89.7 Mean Corpuscular Hemoglobin 31.4 Mean Corpuscular Hemoglobin Concent 35.0 Red Cell Distribution Width 13.3 Platelet Count 200 Mean Platelet Volume 7.9 Neutrophils (%) (Auto) 69.7 Lymphocytes (%) (Auto) 21.2 Monocytes (%) (Auto) 6.4 Eosinophils (%) (Auto) 2.4 Basophils (%) (Auto) 0.3 Neutrophils # (Auto) 7.0 Lymphocytes # (Auto) 2.1 Monocytes # (Auto) 0.6 Eosinophils # (Auto) 0.2 Basophils # (Auto) 0.0 CBC Comment DIFF FINAL Differential Comment Prothrombin Time 10.7 Prothromb Time International Ratio 1.1 Activated Partial Thromboplast Time 23.5 Blood Urea Nitrogen 16 Creatinine 1.01 Random Glucose 122 Total Protein 6.5 Albumin 3.2 Calcium Level 8.3 Magnesium Level 2.2 Alkaline Phosphatase 107 Aspartate Amino Transf (AST/SGOT) 14 Alanine Aminotransferase (ALT/SGPT) 27 Total Bilirubin 0.5 Sodium Level 140 Potassium Level 4.1 Chloride Level 107 Carbon Dioxide Level 25.3 Anion Gap 8 Estimat Glomerular Filtration Rate 73 Result Diagram: 01/15/18 0953 01/15/18 0953 Imaging Last Impressions Chest X-Ray 01/15/18 1015 Signed Impressions: CONCLUSION: No acute cardiopulmonary findings. Caprini VTE Risk Assessment Caprini VTE Risk Assessment: Mod/High Risk (score >= 2) VTE Pharm Contraindication: Active bleeding Caprini Risk Assessment Model Point Value = 1 Point Value = 2 Point Value = 3 Point Value = 5 Age 41-60 Minor surgery BMI > 25 kg/m2 Swollen legs Varicose veins or History of unexplained or recurrent spontaneous Oral contraceptives or hormone replacement Sepsis (< 1 month) Serious lung disease, including pneumonia (< 1 month) Abnormal pulmonary function Acute myocardial infarction Congestive heart failure (< 1 month) History of inflammatory bowel disease Medical patient at bed rest Age 61-74 Arthroscopic surgery Major open surgery (> 45 min) Laparoscopic surgery (> 45 min) Malignancy Confined to bed (> 72 hours) Immobilizing plaster cast Central venous access Age >= 75 History of VTE Family history of VTE Factor V Leiden Prothrombin [id number] Lupus anticoagulant Anticardiolipin antibodies Elevated serum homocysteine Heparin-induced thrombocytopenia Other congenital or acquired thrombophilia Stroke (< 1 month) Elective arthroplasty Hip, pelvis, or leg fracture Acute spinal cord injury (< 1 month) Prophylaxis Regimen Total Risk Factor Score Risk Level Prophylaxis Regimen 0-1 Low Early ambulation 2 Moderate Order ONE of the following: *Sequential Compression Device (SCD) *Heparin 5000 units SQ BID 3-4 Higher Order ONE of the following medications: *Heparin 5000 units SQ TID *Enoxaparin/Lovenox 40 mg SQ daily (WT < 150 kg, CrCl > 30 mL/min) *Enoxaparin/Lovenox 30 mg SQ daily (WT < 150 kg, CrCl > 10-29 mL/min) *Enoxaparin/Lovenox 30 mg SQ BID (WT < 150 kg, CrCl > 30 mL/min) AND/OR *Sequential Compression Device (SCD) 5 or more Highest Order ONE of the following medications: *Heparin 5000 units SQ TID (Preferred with Epidurals) *Enoxaparin/Lovenox 40 mg SQ daily (WT < 150 kg, CrCl > 30 mL/min) *Enoxaparin/Lovenox 30 mg SQ daily (WT < 150 kg, CrCl > 10-29 mL/min) *Enoxaparin/Lovenox 30 mg SQ BID (WT < 150 kg, CrCl > 30 mL/min) AND *Sequential Compression Device (SCD) Assessment and Plan Problem List: (1) Syncope, vasovagal ICD Code: R55 - Syncope and collapse (2) AAA (abdominal aortic aneurysm) ICD Code: I71.4 - Abdominal aortic aneurysm, without rupture (3) Rectal bleed ICD Code: K62.5 - Hemorrhage of anus and rectum Assessment and Plan Place patient on outpatient observation Monitor hemoglobin -hemoglobin stable at 13.3 down from 14.1 on previous day Consult GI for ablation for EGD and colonoscopy. We will place on a Protonix drip. IV fluids N.p.o. except medications for now. Hold aspirin. Hold antihypertensive medications since patient was hypotensive. Continue statin Patient had AAA evaluated by Dr. Jacobo who recommended endovascular repair as an outpatient. SCDs for DVT prophylaxis. Code Status Full code Discussed Condition With ED physician, patient and patient's , RN. Rafy Gamboa MD Jan 15, 2018 15:21
[2018-01-15] MEDS: SODIUM CHLOR 0.9% 1000 ML INJ 1,000 ML IV SCH ×3 (16:54→23:33)
--- NOTE | 2018-01-15 17:30 | PD.CONS ---
HPI History of Present Illness This is a 72 year old male who was brought to the hospital on 01/15/2018 to [place] for symptoms of dark maroon bloody stools. Onset of symptoms started this early a.m. 2 different episodes which included symptoms of diaphoresis, dizziness and syncopal episode. Patient is also complaining of recent headaches unknown cause. According to the medical history and the patient and his he was admitted at [facility] several days ago with the same symptoms of rectal bleeding 3 or 4 times total events, stable hemoglobin, and syncopal episode. He was evaluated per Dr. Laird and was to follow him outpatient for known AAA endovascular repair as an outpatient. Patient and his were also told to follow-up with GI as an outpatient. Currently patient is alert a fair historian and attempting to answer simple questions appropriately. Patient does note he takes aspirin 81 mg daily but no other known anticoagulation. Last EGD and colonoscopy was 9 or 10 years ago when the [facility]. He does note a history of polyps. Currently patient denies any nausea or vomiting, dysphagia or dyspepsia. Patient has noted some mild abdominal cramping to his often known but denies any current abdominal pain current hemoglobin is 13.3, INR 1.1, bilirubin and LFTs within normal range. Patient does note a history of constipation and some straining with stools and he is known to take stool softeners and/or laxatives at home for his bowel regimen. (Yisel Muniz) PFSH Past Medical History AAA, PVD, hyperlipidemia, COPD, diverticulitis Past Surgical History Prostatectomy (Yisel Muniz) Coded Allergies: No Known Allergies (Unverified , 01/13/18) Medications Administered Medications Medications (Trade) Dose Ordered Sig/Olu Route PRN Reason Start Time Stop Time Status Last Admin Dose Admin Sodium Chloride 1,000 ml @ 84 mls/hr [id number] IV 01/15/18 13:45 01/15/18 16:54 Family History Family history is unknown to patient. Social History Patient continues to smoke 1-2 pack a day. Denies using alcohol or illicit drugs. No known family history of colon cancer (Yisel Muniz) Review of Systems Ears, nose, mouth, throat: COMPLAINS OF: Vertigo Gastrointestinal: COMPLAINS OF: Bloody stools (Yisel Muniz) GI Exam Vitals I&O Vital Signs Date Time Temp Pulse Resp B/P (MAP) Pulse Ox O2 Delivery O2 Flow Rate FiO2 01/15/18 13:00 63 18 149/68 (95) 94 Room Air 2.00 01/15/18 12:00 66 18 119/54 (75) 95 01/15/18 11:00 65 18 119/51 (73) 95 01/15/18 10:57 72 18 119/51 (73) 01/15/18 10:54 57 18 110/55 (73) 01/15/18 10:30 60 18 104/51 (68) 94 Room Air 01/15/18 10:00 95 Room Air 01/15/18 09:56 59 18 104/51 (68) 95 Nasal Cannula 2.00 01/15/18 09:44 65 18 100/54 (69) 92 Imaging Last Impressions Chest X-Ray 01/15/18 1015 Signed Impressions: CONCLUSION: No acute cardiopulmonary findings. Laboratory Test 01/15/18 09:53 White Blood Count 10.1 TH/MM3 Red Blood Count 4.24 MIL/MM3 Hemoglobin 13.3 GM/DL Hematocrit 38.0 % Mean Corpuscular Volume 89.7 FL Mean Corpuscular Hemoglobin 31.4 PG Mean Corpuscular Hemoglobin Concent 35.0 % Red Cell Distribution Width 13.3 % Platelet Count 200 TH/MM3 Mean Platelet Volume 7.9 FL Neutrophils (%) (Auto) 69.7 % Lymphocytes (%) (Auto) 21.2 % Monocytes (%) (Auto) 6.4 % Eosinophils (%) (Auto) 2.4 % Basophils (%) (Auto) 0.3 % Neutrophils # (Auto) 7.0 TH/MM3 Lymphocytes # (Auto) 2.1 TH/MM3 Monocytes # (Auto) 0.6 TH/MM3 Eosinophils # (Auto) 0.2 TH/MM3 Basophils # (Auto) 0.0 TH/MM3 CBC Comment DIFF FINAL Differential Comment Prothrombin Time 10.7 SEC Prothromb Time International Ratio 1.1 RATIO Activated Partial Thromboplast Time 23.5 SEC Blood Urea Nitrogen 16 MG/DL Creatinine 1.01 MG/DL Random Glucose 122 MG/DL Total Protein 6.5 GM/DL Albumin 3.2 GM/DL Calcium Level 8.3 MG/DL Magnesium Level 2.2 MG/DL Alkaline Phosphatase 107 U/L Aspartate Amino Transf (AST/SGOT) 14 U/L Alanine Aminotransferase (ALT/SGPT) 27 U/L Total Bilirubin 0.5 MG/DL Sodium Level 140 MEQ/L Potassium Level 4.1 MEQ/L Chloride Level 107 MEQ/L Carbon Dioxide Level 25.3 MEQ/L Anion Gap 8 MEQ/L Estimat Glomerular Filtration Rate 73 ML/MIN Physical Examination HEENT: normocephalic; atraumatic; no jaundice. NECK: Supple CHEST: Mild diminished breath sounds, cough, mild rhonchi and occasional wheeze noted CARDIAC: Regular rate and rhythm with no murmur gallop or rubs. ABDOMEN: Round, soft, nondistended, nontender; no hepatosplenomegaly; bowel sounds are present in all four quadrants. EXTREMITIES: No clubbing, cyanosis, or edema. SKIN: melissa, no rash no jaundice FINAL ARMATURE TESTER: Awake, answers simple questions appropriately (Yisel Muniz) Assessment and Plan Assessment: (1) Rectal bleed ICD Codes: K62.5 - Hemorrhage of anus and rectum Plan Rectal bleeding maroon-colored dark stools, possible diverticular bleed. Versus polyps Borderline anemia current hemoglobin 13.3 Syncopal episode with rectal bleeding probably ,vasovagal 72-year-old male who was evaluated in the [facility] several days ago for the same symptoms of rectal bleeding dark maroon stools. Patient had stable hemoglobin and was to follow-up with GI on an outpatient basis but he had returned symptoms this a.m of multiple dark maroon stools generalized weakness and fatigue. Patient also had syncopal episodes with his rectal bleeding which could have been vasovagal. Also has history of aneurysm being evaluated per Dr. Laird and worked up on an outpatient basis. Patient had EGD colonoscopy 9 or 10 years ago in the [facility] and states a history of polyps. Patient currently denies any nausea vomiting, dyspepsia, dysphagia, hematemesis. Patient is borderline anemic with hemoglobin 13.3 and GI bleed. Patient's also been a long-term smoker states 2-3 packs a day. [facility] and [facility]. Plan Clear liquids/diet N.p.o. at midnight except for medications Consent for EGD colonoscopy in the a.m. [facility] prep Hold any anticoagulants Monitor labs with special attention to hemoglobin Supportive care to patient and his Further recommendations to follow Patient was seen per myself and Dr. Stevens, this note was written on her behalf (Yisel Muniz) Physician Comments seen, examined agree with above bleeding scan stat egd/colon in am transfuse prn monitor hb/ht clear liquid diet (Briana Stevens MD) Yisel Muniz Jan 15, 2018 17:30 Briana Stevens MD Jan 15, 2018 17:34
[2018-01-15] MEDS ORDERED: PEG (High)/E-LYTE SOLN 4000 ML BTL PO ONE (17:45)
[2018-01-15] MEDS: REMOVE OLD PATCH T-DERMAL SCH (21:00)
--- NOTE | 2018-01-15 23:21 | RADRPT ---
EXAM DATE: 01/15/2018 11:16 PM EDT AGE/SEX: 72 years / Male INDICATIONS: Blood in stool. CLINICAL DATA: This is the patient's initial encounter. Patient reports that signs and symptoms have been present for 1 day and indicates a pain score of 2/10. MEDICAL/SURGICAL HISTORY: Carcinoma, prostatic. Chronic obstructive pulmonary disease. Prostat ectomy. Penile implant. COMPARISON: No prior exams available for comparison. TECHNIQUE: Following the modified in vitro labeling of autologous red cells, dynamic continuous image s were acquired for two hours. ?? DOSE: 20.2 mCi Tc 99m Ultratag Labeled Red Blood Cells IV IMAGING TIME: 2 hr FINDINGS: Biodistribution: There is a very good labeling of red cells without significant uptake in the gastri c wall. There is good delineation of the blood pool of the spleen and abdominal vessels. Bleeding: No episodes of active GI bleeding are observed during two hours of continuous observation . Bladder and bowel activity were noted. CONCLUSION: 1. Negative GI bleeding study. Electronically signed by: Luciano Ortiz MD 01/15/2018 11:20 PM EDT
[2018-01-15] MEDS: NICOTINE 21 MG/24 HR PATCH T-DERMAL SCH (23:32)
[2018-01-15] MEDS: SODIUM CHLORIDE 0.9% FLUSH 10 ML FLUSH IV FLUSH SCH (23:33)
[2018-01-16] VITALS (8 sets, daily range): BP systolic 115–161; BP diastolic 58–77; PULSE 61–95; RESP 14–20; TEMP 96.7–98.4; O2SAT 93–96
[2018-01-16 00:57] LABS: HEMATOCRIT 36.1 % (39.0-51.0); HEMOGLOBIN 12.4 GM/DL (13.0-17.0)
[2018-01-16] MEDS: SODIUM CHLOR 0.9% 1000 ML INJ 1,000 ML IV SCH ×4 (01:40→22:22)
[2018-01-16] MEDS: SODIUM CHLORIDE 0.9% FLUSH 10 ML FLUSH IV FLUSH SCH ×2 (07:34→21:34)
[2018-01-16 08:13] LABS: AUTOMATED NEUTROPHIL # 5.5 TH/MM3 (1.8-7.7); BASOPHIL % 0.2 % (0.0-2.0); EOSINOPHIL # 0.2 TH/MM3 (0-0.4); EOSINOPHIL % 2.2 % (0.0-4.0); HEMATOCRIT 35.4 % (39.0-51.0); HEMOGLOBIN 12.2 GM/DL (13.0-17.0); LYMPH % 23.8 % (9.0-44.0); MEAN CELL VOLUME 91.7 FL (80.0-100.0); MEAN CORPUSCULAR HEMOGLOBIN 31.6 PG (27.0-34.0); MEAN CORPUSCULAR HGB CONC 34.4 % (32.0-36.0); MEAN PLATELET VOLUME 7.6 FL (7.0-11.0); MONO % 6.9 % (0.0-8.0); MONOCYTE # 0.6 TH/MM3 (0-0.9); NEUT % 66.9 % (16.0-70.0); PLATELET COUNT 192 TH/MM3 (150-450); RED BLOOD COUNT 3.86 MIL/MM3 (4.50-5.90); RED CELL DISTRIBUTION WIDTH 13.3 % (11.6-17.2); WHITE BLOOD COUNT 8.2 TH/MM3 (4.0-11.0)
[2018-01-16 08:28] LABS: ALBUMIN 3.2 GM/DL (3.4-5.0); AST (GOT) 17 U/L (15-37); BICARBONATE 24.7 MEQ/L (21.0-32.0); BLOOD UREA NITROGEN 11 MG/DL (7-18); CALCIUM 8.1 MG/DL (8.5-10.1); CHLORIDE 109 MEQ/L (98-107); CREATININE 0.71 MG/DL (0.60-1.30); GLOMERULAR FILTRATION RATE 109 ML/MIN (>89); GLUCOSE,RANDOM 87 MG/DL (74-106); SODIUM (NA) 143 MEQ/L (136-145)
[2018-01-16 08:29] LABS: ALT (GPT) 27 U/L (12-78)
[2018-01-16 08:31] LABS: ALKALINE PHOSPHATASE 106 U/L (45-117); TOTAL BILIRUBIN ADULT 0.6 MG/DL (0.2-1.0); TOTAL PROTEIN 6.3 GM/DL (6.4-8.2)
[2018-01-16] MEDS ORDERED: RESP: ALBUTEROL 2.5 MG/IPRATROPIUM 0.5 MG NEB (PRN) NEB (09:45)
--- NOTE | 2018-01-16 09:46 | HHI.PR ---
Subjective Remarks Follow-up on patient with GI bleed. Patient seen and examined. Patient evaluated by GI and scheduled for EGD and colonoscopy today. Patient reports continued dark stools throughout the night and this morning. He denies any fever or chills. He denies any dizziness, headache, numbness/tingling, palpitations, chest pain or shortness of breath. Denies any nausea, vomiting or abdominal pain. Objective Vitals Vital Signs Date Time Temp Pulse Resp B/P (MAP) Pulse Ox O2 Delivery O2 Flow Rate FiO2 01/16/18 08:22 98.4 61 18 142/65 (90) 93 01/16/18 04:40 97.8 69 20 161/77 (105) 96 01/15/18 23:45 98.8 62 20 143/64 (90) 91 01/15/18 13:00 63 18 149/68 (95) 94 Room Air 2.00 01/15/18 12:00 66 18 119/54 (75) 95 01/15/18 11:00 65 18 119/51 (73) 95 01/15/18 10:57 72 18 119/51 (73) 01/15/18 10:54 57 18 110/55 (73) 01/15/18 10:30 60 18 104/51 (68) 94 Room Air 01/15/18 10:00 95 Room Air 01/15/18 09:56 59 18 104/51 (68) 95 Nasal Cannula 2.00 01/15/18 09:44 65 18 100/54 (69) 92 I/O 01/15/18 01/15/18 01/15/18 01/16/18 01/16/18 01/16/18 07:00 15:00 23:00 07:00 15:00 23:00 Intake Total 200 ml Balance 200 ml Intake Oral 200 ml Result Diagram: 01/16/18 0716 01/16/18 0716 Imaging Last Impressions Chest X-Ray 01/15/18 1015 Signed Impressions: CONCLUSION: No acute cardiopulmonary findings. GI Bleed Scan Nuclear Medicine 01/15/18 0000 Signed Impressions: CONCLUSION: 1. Negative GI bleeding study. Objective Remarks GENERAL: This is a well-nourished, well-developed elderly male patient , in no apparent distress. Awake and alert. SKIN: Warm and dry. No generalized rash. HEAD: Atraumatic. Normocephalic. EYES: Extraocular motions intact. No scleral icterus. No injection or drainage. ENT: Nose without bleeding or purulent drainage. Airway patent. NECK: Trachea midline. CARDIOVASCULAR: Regular rate and rhythm without murmurs, gallops, or rubs. RESPIRATORY: Nonlabored. Clear to auscultation. Breath sounds equal bilaterally. No wheezes, rales, or rhonchi. GASTROINTESTINAL: Abdomen soft, non-tender, nondistended. No guarding. MUSCULOSKELETAL: Extremities without clubbing, cyanosis, or edema. No joint tenderness, effusion, or edema noted. No calf tenderness. NEUROLOGICAL: Awake and alert. Cranial nerves II through XII grossly intact. Motor and sensory grossly within normal limits. No focal neurologic findings appreciated. Normal speech. PSYCHIATRIC: Appropriate mood and affect. Normal judgment and insight A/P Problem List: (1) Syncope, vasovagal ICD Code: R55 - Syncope and collapse (2) AAA (abdominal aortic aneurysm) ICD Code: I71.4 - Abdominal aortic aneurysm, without rupture (3) Rectal bleed ICD Code: K62.5 - Hemorrhage of anus and rectum Assessment and Plan 72-year-old male with past medical history as detailed below who presents to [facility] complaining of an episode of dark red blood in the stool and feeling weak. GIB GI bleed scan neg -GI following, appreciate assistance. EGD and colonoscopy for today. Keep NPO. IVF. -continue on Protonix drip for now -will advance diet post procedure per GI recs -monitor H/H closely -Continue to hold home aspirin dose Anemia, mild, suspect secondary to GI bleed Hgb with slight drop of 13.3-12.2 -Treatment as above -Continue to monitor H&H closely -Fall precautions Hypertension Home antihypertensives held secondary to patient being hypotensive, currently BP 142/65 -Resume patient on home dose of Norvasc -Vasotec IV prn -Continue to monitor BP and adjust treatment accordingly COPD, not in acute exacerbation Ongoing tobaccoism -Discussed smoking cessation -Supplemental oxygen as needed -Continue to monitor respiratory status -Duo nebs as needed Dyslipidemia -Continue patient on home dose of statin therapy AAA -Patient evaluated by Dr. Bay who recommended endovascular repair as outpatient DVT prophylaxis -Chemoprophylaxis contraindicated at this time secondary to GIB -SCD/SAM hose bilaterally Discharge Planning Not ready for discharge. Discharge pending GI workup/clearance. Marine Ray Jan 16, 2018 09:46
[2018-01-16] MEDS ORDERED: ENALAPRILAT 1.25 MG/ML VIAL IV PUSH PRN (10:00)
[2018-01-16] MEDS ORDERED: LIDOCAINE HCL 1% PF 5 ML SYRINGE OTHER ONE (12:00)
[2018-01-16] MEDS ORDERED: PROPOFOL 200 MG/20 ML AMP IV ONE (12:00)
--- NOTE | 2018-01-16 12:37 | GIPROC ---
[facility] [address] [facility]. [facility], [address] EGD PROCEDURE REPORT EXAM DATE: 01/16/2018 PATIENT NAME: Sedrick Licea MR #: [id number] BIRTHDATE: 1945 ATTENDING: Briana Stevens MD ORDER #: [id number] HEM INSPECTOR: Kenneth Soni STATUS: inpatient INDICATIONS: The patient is a 72 yr old male here for an EGD due to anemia, gi bleeding PROCEDURE PERFORMED: EGD w/ biopsy MEDICATIONS: None and Per Anesthesia. TOPICAL ANESTHETIC: none CONSENT: The patient understands the risks and benefits of the procedure and understands that these risks include, but are not limited to: sedation, allergic reaction, infection, perforation and/or bleeding. Alternative means of evaluation and treatment include, among others: physical exam, x-rays, and/or surgical intervention. The patient elects to proceed with this endoscopic procedure. medical equipment was checked for proper function. Hand hygiene and appropriate measures for infection prevention was taken. After the risks, benefits and alternatives of the procedure were thoroughly explained, Informed consent was verified, confirmed and timeout was successfully executed by the treatment team. The patient was anesthetized with topical anesthesia and the [id number] (Pedi C) endoscope was introduced through the mouth and advanced to the second portion of the duodenum. Retroflexed views revealed a hiatal hernia The gastroscope was then slowly withdrawn and removed. Gastritis antrum-biopsy esophagitis dsital esophagus-biopsy duodenitis duodenal bulb-biopsy. ADVERSE EVENTS: There were no complications. IMPRESSIONS: 1. Gastritis antrum-biopsy esophagitis dsital esophagus-biopsy duodenitis duodenal bulb-biopsy 2. Retroflexed views revealed a hiatal hernia RECOMMENDATIONS: 1. Await biopsy results. Biopsy results will not be ready for 7-10 days. If you don't hear from us in two weeks, call our office for biopsy results. 2. Anti-reflux regimen 3. Continue PPI 4. Avoid NSAIDS PATIENT CONDITION: stable DISPOSITION: Inpatient REPEAT EXAM: Return 1 year EGD Briana Stevens MD eSigned: Briana Stevens MD 01/16/2018 12:37 PM cc:
--- NOTE | 2018-01-16 12:40 | GIPROC ---
[facility] [address] [facility]. [facility], [address] COLONOSCOPY PROCEDURE REPORT EXAM DATE: 01/16/2018 PATIENT NAME: Sedrick Licea MR #: [id number] BIRTHDATE: 1945 ENDOSCOPIST: Briana Stevens MD ORDER #: [id number] DIESEL SERVICE APPRENTICE: Kenneth Soni STATUS: inpatient INDICATIONS: The patient is a 72 yr old male here for a colonoscopy due to gi bleeding PROCEDURE PERFORMED: Colonoscopy with biopsy MEDICATIONS: None and Per Anesthesia. PREP QUALITY: good PREP TYPE:Other: ESTIMATED BLOOD LOSS: None CONSENT: The patient understands the risks and benefits of the procedure and understands that these risks include, but are not limited to: sedation, allergic reaction, infection, perforation and/or bleeding. Alternative means of evaluation and treatment include, among others: physical exam, x-rays, and/or surgical intervention. The patient elects to proceed with this endoscopic procedure. medical equipment was checked for proper function. Hand hygiene and appropriate measures for infection prevention was taken. After the risks, benefits and alternatives of the procedure were thoroughly explained, Informed consent was verified, confirmed and timeout was successfully executed by the treatment team. A digital exam revealed external hemorrhoids The Pentax [id number] endoscope was introduced through the anus and advanced to the cecum, which was identified by both the appendix and ileocecal valve. The instrument was then slowly withdrawn as the colon was fully examined. COLON FINDINGS: Diverticulosis sigmoid,descending three diminutive polyps in rectum-cold biopsy with complete removal. Retroflexed views revealed internal hemorrhoids and Retroflexed views revealed medium internal hemorrhoids The scope was then completely withdrawn from the patient and the procedure terminated. PROCEDURE WITHDRAWAL TIME:6minutes ADVERSE EVENTS: There were no complications. IMPRESSIONS: 1. Diverticulosis sigmoid,descending three diminutive polyps in rectum-cold biopsy with complete removal 2. Retroflexed views revealed internal hemorrhoids 3. Retroflexed views revealed medium internal hemorrhoids 4. Revealed external hemorrhoids RECOMMENDATIONS: 1. Await biopsy results. Biopsy results will not be ready for 7-10 days. If you don't hear from us in two weeks, call our office for results. 2. Benefiber 2 tsp daily 3. High fiber diet 4. Probiotics from any [facility] or [employer] food store 5. Yearly rectal exams 6. If further bleeding -cta, capsule endoscopy advance diet ok to dc home from gi point in 1 day if stable ok for anticoagulation if indicated RECALL: Return 5 years Colonoscopy Briana Stevens MD eSigned: Briana Stevens MD 01/16/2018 12:40 PM cc: PATIENT NAME: Sedrick Licea MR#: [id number]
[2018-01-16] MEDS ORDERED: PANTOPRAZOLE SOD 40 MG DELAYED RELEASE TAB PO ONE (13:30)
[2018-01-16 17:46] LABS: AUTOMATED NEUTROPHIL # 4.5 TH/MM3 (1.8-7.7); BASOPHIL % 0.2 % (0.0-2.0); EOSINOPHIL # 0.2 TH/MM3 (0-0.4); EOSINOPHIL % 2.3 % (0.0-4.0); HEMATOCRIT 31.2 % (39.0-51.0); HEMOGLOBIN 11.3 GM/DL (13.0-17.0); LYMPH % 33.3 % (9.0-44.0); LYMPHOCYTE # 2.7 TH/MM3 (1.0-4.8); MEAN CELL VOLUME 91.1 FL (80.0-100.0); MEAN CORPUSCULAR HEMOGLOBIN 32.9 PG (27.0-34.0); MEAN PLATELET VOLUME 7.4 FL (7.0-11.0); MONO % 8.3 % (0.0-8.0); MONOCYTE # 0.7 TH/MM3 (0-0.9); NEUT % 55.9 % (16.0-70.0); PLATELET COUNT 197 TH/MM3 (150-450); RED BLOOD COUNT 3.42 MIL/MM3 (4.50-5.90); RED CELL DISTRIBUTION WIDTH 13.2 % (11.6-17.2); WHITE BLOOD COUNT 8.1 TH/MM3 (4.0-11.0)
[2018-01-16 17:54] LABS: MEAN CORPUSCULAR HGB CONC 36.1 % (32.0-36.0)
[2018-01-16 18:07] LABS: AST (GOT) 16 U/L (15-37); BICARBONATE 25.5 MEQ/L (21.0-32.0); BLOOD UREA NITROGEN 12 MG/DL (7-18); CALCIUM 7.9 MG/DL (8.5-10.1); CHLORIDE 111 MEQ/L (98-107); CREATININE 0.82 MG/DL (0.60-1.30); GLOMERULAR FILTRATION RATE 92 ML/MIN (>89); GLUCOSE,RANDOM 125 MG/DL (74-106); MAGNESIUM 2.2 MG/DL (1.5-2.5); SODIUM (NA) 144 MEQ/L (136-145)
[2018-01-16 18:12] LABS: ALKALINE PHOSPHATASE 93 U/L (45-117); ALT (GPT) 25 U/L (12-78); TOTAL BILIRUBIN ADULT 0.3 MG/DL (0.2-1.0); TOTAL PROTEIN 5.9 GM/DL (6.4-8.2); TROPONIN I LESS THAN 0.02 NG/ML (0.02-0.05)
[2018-01-16] MEDS ORDERED: MIDAZOLAM HCL 5 MG/5 ML VIAL ONE (18:14)
[2018-01-16] MEDS ORDERED: fentaNYL CITRATE 250 MCG/5 ML AMP ONE (18:14)
[2018-01-16] MEDS ORDERED: LORazepam 2 MG/ML VIAL ONE (18:37)
[2018-01-16] MEDS ORDERED: ePHEDrine/NS 25 MG/5 ML SYRINGE ONE (18:52)
[2018-01-16] MEDS ORDERED: ceFAZolin 2 GM PREMIX 50 ML ONE (19:47)
--- NOTE | 2018-01-16 20:16 | PD.RAD ---
Post Procedure Progress Note Pre Procedure Diagnosis: (1) Rectal bleed Post Procedure Diagnosis: (1) Rectal bleed Procedure Date: Jan 16, 2018 Supervising Radiologist: Jose Enrique Pierre Estimated blood loss: 5cc Anesthesia: Local, Conscious Sedation Plan of Activity Patient to Unit: ROPU Patient Condition: Fair Additional Comments: Mesenteric angio completed. Large bleed evident feeding via the SMA at the level of the hepatic flexure. Area embolized with gelfoam and a 2mm coil. Large veins evident and angiodysplasia. Possible avm vs mass. Pt will need colonoscopy to thoroughly evaluate this area. Full dictated report to follow See PACS Report for procedural detail/treatment Jose Enrique Pierre MD Jan 16, 2018 20:16
[2018-01-16] MEDS: OXYBUTYNIN CHLORIDE 5 MG TAB PO SCH (21:00)
[2018-01-16] MEDS: NICOTINE 21 MG/24 HR PATCH T-DERMAL SCH (21:00)
[2018-01-16] MEDS: ATORVASTATIN 80 MG TAB PO SCH (21:00)
[2018-01-16] MEDS: REMOVE OLD PATCH T-DERMAL SCH (21:00)
[2018-01-16] MEDS ORDERED: LACTATED RINGER'S 1000 ML INJ 500 ML IV ONE (21:30)
--- NOTE | 2018-01-16 22:02 | RADRPT ---
EXAM DATE: 01/16/2018 8:43 PM EDT AGE/SEX: 72 years / Male INDICATIONS: Patient presents as a GI bleed. CLINICAL DATA: This is the patient's initial encounter. Patient reports that signs and symptoms have been present for 1 day and indicates a pain score of 0/10. MEDICAL/SURGICAL HISTORY: Chronic obstructive pulmonary disease. Peripheral vascular disease. Diverticulitis. AAA, hyperlipidemia Prostatectomy. COMPARISON: No prior exams available for comparison. FLUORO TIME (min): 31.53 IMAGE SERIES: 27 ACCESS SITE: Right femoral artery SEDATION TIME (min): 60 CONTRAST (cc): 250 Visipaque (iodixanol) MEDICATION(S): 100mcg fentanyl (Sublimaze) IV 1 mg lorazepam (Ativan) IV DEVICE(S): Right common femoral artery Angio-Seal 6fr Superior mesenteric artery embolic coil 18 09/25 tornado Superior mesenteric artery Gelfoam PROCEDURE : 1. Ultrasound-guided puncture of the access site. 2. Conscious sedation with continuous EKG and Oximetry monitoring. 3. Angiography of the celiac axis with selective cannulization of the gastroduodenal artery. 4. Angiography of the superior mesenteric artery 5. Angiography of the inferior mesenteric artery 6. Embolization of a branch off the superior mesenteric artery feeding the hepatic flexure. CLINICAL HISTORY: The patient is a 72-year-old who presented to the emergency department the gastroin testinal bleed. The patient had undergone both upper and lower endoscopy. The patient experienced sig nificant lower GI hemorrhage immediately prior to this procedure. The risks, benefits and alternatives to the procedure were explained to the patient and his . The risk included but were not limited to bleeding, infection, colonic infarction and emergent surgery. Verbal and written consent was obtained. The site was prepped in sterile fashion. Full photonics engineering technician nique was used, including cap, mask, sterile gloves and gown and a large sterile sheet. Hand hygiene and 2% chlorhexidine and/or betadine/alcohol prep was utilized per protocol for cutaneous antisepsis . Sterile gel and sterile probe cover were utilized for ultrasound guidance. The skin and subcutane ous tissues were infiltrated with local anesthetic solution. With ultrasound and fluoroscopic guidance the right common femoral artery was punctured and a vascula r sheath was placed. A 0.035 angle glide wire and 4 Honduran hook catheter were advanced into the abdominal aorta. The super ior mesenteric artery was easily selected. Contrast angiography of the SMA distribution was performed . The catheter was removed. The celiac axis was cannulated. Injection of the celiac axis and selectiv e injection of the gastroduodenal circulation was performed. The 4 Honduran short catheter was exchange d for a 5 Honduran hook catheter. The MELITON was selected. Selective injection of the MELITON was performed. N o active bleeding was identified with initial injections. Note was made of the patient's known infrar enal abdominal aortic aneurysm. The 5 Honduran catheter was removed from the MELITON and again the origin of the SMA was again selected. Th e follow-up injection of the SMA demonstrated active hemorrhage feeding from a small branch off the p roximal SMA in the region of the hepatic flexure. A renegade high flow catheter was advanced through the 5 Honduran hook catheter and out into the bleedi ng vessel as close to the hemorrhage as possible. Approximately 0.2 cc of Gelfoam was instilled throu gh the hi flow catheter. This was backed by a 2 mm embolization coil. Follow-up angiography demonstra fallon complete occlusion of the branch feeding the hemorrhage. The patient tolerated the procedure well. Results were called directly to Dr. Stevens. The patient was transferred to the intensive care unit for observation. The puncture site was closed with manual pressure and hemostasis was obtained. The patient tolerated the procedure well and there were no complications. Conscious sedation was performed with the prescribed dosages and duration as above in the presence of an independent trained radiology nurse to assist in the monitoring of the patient. EKG and oximetry remained stable throughout the procedure. CONCLUSION: 1. Angiography demonstrated active hemorrhage in the region of the hepatic flexure. The small vess el feeding the site of hemorrhage was embolized with a small amount of Gelfoam and a 2 mm embolizatio n coil. The patient tolerated the procedure well. Electronically signed by: Jose Enrique Pierre MD 01/16/2018 10:00 PM EDT
--- NOTE | 2018-01-16 22:06 | PD.CONS ---
[facility] Service Critical Care Medicine Consult Requested By Primary Care Physician [facility] History of Present Illness The 72-year-old male is admitted for evaluation of an episode of dark red blood in the stool and feeling weak. As per patient's he passed out. The patient was recently admitted in [place] after an episode of diverticular bleed. He underwent urgent EGD by gastroenterology they did not identify obvious source of bleeding. So the patient was taken to interventional radiology for angiography that demonstrated active hemorrhage in the region of the hepatic flexure. The small vessel feeding the site of hemorrhage was embolized with a small amount of Gelfoam and a 2 mm embolization coil. In the recovery room patient was found to have an episode of symptomatic bradycardia with low blood pressure if systolic of 70s and near syncope. Review of Systems Constitutional: COMPLAINS OF: Diaphoretic episodes, Fatigue, Dizziness, DENIES : Fever, Weight gain, Weight loss, Chills, Change in appetite, Night Sweats Endocrine: DENIES: Heat/cold intolerance, Polydipsia, Polyuria, Polyphagia Eyes: COMPLAINS OF: Blurred vision, DENIES: Diplopia, Eye inflammation, Eye pain, Vision loss, Photosensitivity, Double Vision Ears, nose, mouth, throat: DENIES: Tinnitus, Hearing loss, Vertigo, Nasal discharge, Oral lesions, Throat pain, Hoarseness, Ear Pain, Running Nose, Epistaxis, Sinus Pain, Toothache, Odynophagia Respiratory: DENIES: Apneas, Cough, Snoring, Wheezing, Hemoptysis, Sputum production, Shortness of breath Cardiovascular: DENIES: Chest pain, Palpitations, Syncope, Dyspnea on Exertion , PND, Lower Extremity Edema, Orthopnea, Claudication Gastrointestinal: COMPLAINS OF: Abdominal pain, DENIES: Black stools, Bloody stools, Constipation, Diarrhea, Nausea, Vomiting, Difficulty Swallowing, Anorexia Genitourinary: DENIES: Sexual dysfunction, Urinary frequency, Urinary incontinence, Urgency, Hematuria, Dysuria, Nocturia, Penile Discharge, Testicular Pain, Testicular Swelling Musculoskeletal: DENIES: Joint pain, Muscle aches, Stiffness, Joint Swelling, Back pain, Neck pain Integumentary: DENIES: Abnormal pigmentation, Nail changes, Pruritus, Rash Hematologic/lymphatic: DENIES: Bruising, Lymphadenopathy Immunologic/allergic: DENIES: Eczema, Urticaria Neurologic: DENIES: Abnormal gait, Headache, Localized weakness, Paresthesias, Seizures, Speech Problems, Tremor, Poor Balance Psychiatric: DENIES: Anxiety, Confusion, Mood changes, Depression, Hallucinations, Agitation, Suicidal Ideation, Homicidal Ideation, Delusions Past Family Social History Allergies: Coded Allergies: No Known Allergies (Unverified , 01/13/18) Past Medical History AAA, Peripheral vascular disease Dyslipidemia COPD Diverticulitis Past Surgical History Prostatectomy Reported Medications Reported Meds & Active Scripts Active Reported Ventolin Hfa 18 GM Inh (Albuterol Sulfate) 90 Mcg/Act Aer 2 Puff INH Q4-6H PRN Fish Oil + D3 (Fish Oil-Cholecalciferol) 1,200-1,000 Mg-Unit Cap 1 Cap PO DAILY Aspirin Children's (Aspirin) 81 Mg Chew 81 Mg CHEW DAILY Amlodipine (Amlodipine Besylate) 10 Mg Tab 10 Mg PO DAILY Ditropan (Oxybutynin Chloride) 5 Mg Tab 5 Mg PO Q12HR Atorvastatin (Atorvastatin Calcium) 80 Mg Tab 80 Mg PO HS Citalopram (Citalopram Hydrobromide) 10 Mg Tab 10 Mg PO DAILY Active Ordered Medications Current Medications Medications (Trade) Dose Ordered Sig/Olu Route PRN Reason Start Time Stop Time Status Last Admin Dose Admin Sodium Chloride 1,000 ml @ 100 mls/hr Q10H IV 01/15/18 14:00 01/16/18 22:22 Sodium Chloride (NS Flush) 2 ml UNSCH PRN IV FLUSH FLUSH AFTER USING IV ACCESS 01/15/18 13:15 Sodium Chloride (NS Flush) 2 ml BID IV FLUSH 01/15/18 21:00 01/16/18 21:34 Naloxone HCl (Narcan Inj) 0.4 mg UNSCH PRN IV PUSH SEE LABEL COMMENTS 01/15/18 13:15 Nicotine (Habitrol 21 Mg Patch.24 Hr) 1 patch Q24H T-DERMAL 01/15/18 21:00 01/15/18 23:32 Miscellaneous Information 1 Q24H T-DERMAL 01/15/18 21:00 Albuterol/ Ipratropium (Duoneb Neb) 1 ampule Q4HR NEB PRN NEB cough, dyspnea, wheezing 01/16/18 09:45 Amlodipine Besylate (Norvasc) 10 mg DAILY PO 01/17/18 09:00 Atorvastatin Calcium (Lipitor) 80 mg HS PO 01/16/18 21:00 Citalopram Hydrobromide (CeleXA) 10 mg DAILY PO 01/17/18 09:00 Oxybutynin Chloride (Ditropan) 5 mg Q12HR PO 01/16/18 21:00 Enalaprilat (Vasotec Inj) 1.25 mg Q6H PRN IV PUSH SBP>180, DBP>95 01/16/18 10:00 Pantoprazole Sodium (Protonix) 40 mg DAILY PO 01/17/18 09:00 Family History Family history is unknown to patient. Social History Patient continues to smoke 1-2 pack a day. Denies using alcohol or illicit drugs. Physical Exam Vital Signs Vital Signs Date Time Temp Pulse Resp B/P (MAP) Pulse Ox O2 Delivery O2 Flow Rate FiO2 01/16/18 16:35 97.6 77 18 136/64 (88) 96 01/16/18 14:45 72 147/68 (94) 01/16/18 13:10 97.5 62 18 147/71 (96) 96 01/16/18 12:55 59 17 118/56 (76) 95 Room Air 01/16/18 12:45 57 17 111/63 (79) 95 Room Air 01/16/18 12:39 97.9 60 17 106/54 (71) 93 Nasal Cannula 3 01/16/18 08:22 98.4 61 18 142/65 (90) 93 01/16/18 04:40 97.8 69 20 161/77 (105) 96 01/15/18 23:45 98.8 62 20 143/64 (90) 91 Physical Exam GENERAL: Well-nourished, well-developed patient. SKIN: Warm and dry. HEAD: Normocephalic. EYES: No scleral icterus. No injection or drainage. NECK: Supple, trachea midline. No JVD or lymphadenopathy. CARDIOVASCULAR: Regular rate and rhythm without murmurs, gallops, or rubs. RESPIRATORY: Breath sounds equal bilaterally. No accessory muscle use. Diffuse fine rhonchi bilaterally GASTROINTESTINAL: Abdomen soft, non-tender, nondistended. MUSCULOSKELETAL: No cyanosis, or edema. BACK: Nontender without obvious deformity. NEURO EXAM: GCS: 14 Mental Status: The patient is alert and oriented to person, place, and time with normal speech. Laboratory Laboratory Tests Test 01/16/18 00:21 01/16/18 07:16 01/16/18 17:06 01/16/18 17:19 Hemoglobin 12.4 12.2 11.3 Hematocrit 36.1 35.4 31.2 White Blood Count 8.2 8.1 Red Blood Count 3.86 3.42 Mean Corpuscular Volume 91.7 91.1 Mean Corpuscular Hemoglobin 31.6 32.9 Mean Corpuscular Hemoglobin Concent 34.4 36.1 Red Cell Distribution Width 13.3 13.2 Platelet Count 192 197 Mean Platelet Volume 7.6 7.4 Neutrophils (%) (Auto) 66.9 55.9 Lymphocytes (%) (Auto) 23.8 33.3 Monocytes (%) (Auto) 6.9 8.3 Eosinophils (%) (Auto) 2.2 2.3 Basophils (%) (Auto) 0.2 0.2 Neutrophils # (Auto) 5.5 4.5 Lymphocytes # (Auto) 2.0 2.7 Monocytes # (Auto) 0.6 0.7 Eosinophils # (Auto) 0.2 0.2 Basophils # (Auto) 0.0 0.0 CBC Comment DIFF FINAL AUTO DIFF Differential Comment AUTO DIFF CONFIRMED Blood Urea Nitrogen 11 12 Creatinine 0.71 0.82 Random Glucose 87 125 Total Protein 6.3 5.9 Albumin 3.2 3.0 Calcium Level 8.1 7.9 Alkaline Phosphatase 106 93 Aspartate Amino Transf (AST/SGOT) 17 16 Alanine Aminotransferase (ALT/SGPT) 27 25 Total Bilirubin 0.6 0.3 Sodium Level 143 144 Potassium Level 3.9 3.8 Chloride Level 109 111 Carbon Dioxide Level 24.7 25.5 Anion Gap 9 8 Estimat Glomerular Filtration Rate 109 92 Platelet Estimate NORMAL Platelet Morphology Comment NORMAL Magnesium Level 2.2 Total Creatine Kinase 127 Creatine Kinase MB 1.7 Troponin I LESS THAN 0.02 Test 01/16/18 21:00 Result Diagram: 01/16/18 1706 01/16/18 1719 Assessment and Plan Assessment and Plan Lower GI bleed -Status post embolization by IR -Monitor for signs of ischemia -Gastroenterology following -Protonix IV -Series of H&H COPD -DuoNeb scheduled and as needed -No indication for steroid Bradycardia -Atropine as needed -Telemetry -Cardiology consultation for evaluation Dyslipidemia -Atorvastatin Hypertension -Norvasc on hold due to borderline hypotension and acute GI bleed Anemia -Blood loss anemia -Monitor H&H -Transfuse if needed to keep hemoglobin above 7 DVT GI prophylaxis -Teds SCDs -No pharmacological DVT prophylaxis due to acute bleed -Protonix IV Critical Care: The total critical care time was 35 minutes. Time to perform other separately billable procedures was not included in the critical care time. Alejandro Zaragoza MD Jan 16, 2018 10:06 pm
[2018-01-16 22:26] LABS: AUTOMATED NEUTROPHIL # 10.1 TH/MM3 (1.8-7.7); BASOPHIL % 0.2 % (0.0-2.0); EOSINOPHIL % 0.1 % (0.0-4.0); HEMATOCRIT 26.2 % (39.0-51.0); HEMOGLOBIN 8.9 GM/DL (13.0-17.0); LYMPH % 8.6 % (9.0-44.0); MEAN CELL VOLUME 91.3 FL (80.0-100.0); MEAN CORPUSCULAR HEMOGLOBIN 31.1 PG (27.0-34.0); MEAN PLATELET VOLUME 7.7 FL (7.0-11.0); MONO % 3.8 % (0.0-8.0); MONOCYTE # 0.4 TH/MM3 (0-0.9); NEUT % 87.3 % (16.0-70.0); PLATELET COUNT 170 TH/MM3 (150-450); RED BLOOD COUNT 2.87 MIL/MM3 (4.50-5.90); RED CELL DISTRIBUTION WIDTH 13.5 % (11.6-17.2); WHITE BLOOD COUNT 11.5 TH/MM3 (4.0-11.0)
[2018-01-17] VITALS (27 sets, daily range): BP systolic 94–153; BP diastolic 47–67; PULSE 58–82; RESP 12–29; TEMP 97.6–99; O2SAT 93–100
[2018-01-17 04:50] LABS: HEMATOCRIT 23.1 % (39.0-51.0); HEMOGLOBIN 8.1 GM/DL (13.0-17.0); MEAN CELL VOLUME 91.3 FL (80.0-100.0); MEAN CORPUSCULAR HEMOGLOBIN 32.1 PG (27.0-34.0); MEAN CORPUSCULAR HGB CONC 35.1 % (32.0-36.0); MEAN PLATELET VOLUME 7.4 FL (7.0-11.0); PLATELET COUNT 167 TH/MM3 (150-450); RED BLOOD COUNT 2.53 MIL/MM3 (4.50-5.90); RED CELL DISTRIBUTION WIDTH 13.4 % (11.6-17.2); WHITE BLOOD COUNT 9.6 TH/MM3 (4.0-11.0)
--- NOTE | 2018-01-17 08:08 | HHI.CCPN ---
Subjective Remarks/Hospital Course The 72-year-old male is admitted for evaluation of an episode of dark red blood in the stool and feeling weak. As per patient's he passed out. The patient was recently admitted in [place] after an episode of diverticular bleed. He underwent urgent EGD by gastroenterology they did not identify obvious source of bleeding. So the patient was taken to interventional radiology for angiography that demonstrated active hemorrhage in the region of the hepatic flexure. The small vessel feeding the site of hemorrhage was embolized with a small amount of Gelfoam and a 2 mm embolization coil. In the recovery room patient was found to have an episode of symptomatic bradycardia with low blood pressure if systolic of 70s and near syncope. Subjective 01/17: Currently resting in bed on nasal cannula in no acute distress. Lactic acid 1.1. Denies abdominal pain currently. Hemoglobin currently 8.1. Recheck this afternoon in a.m. Objective Vital Signs Date Time Temp Pulse Resp B/P (MAP) Pulse Ox O2 Delivery O2 Flow Rate FiO2 01/17/18 06:00 62 01/17/18 04:00 98.5 23 153/63 (93) 98 01/16/18 21:30 Nasal Cannula 3 Intake and Output 01/17/18 01/17/18 01/18/18 08:00 16:00 00:00 Output Total 750 ml Balance -750 ml Result Diagram: 01/17/18 0435 01/16/18 1719 Imaging Last Impressions Abdominal Angiography 01/16/18 0000 Signed Impressions: CONCLUSION: 1. Angiography demonstrated active hemorrhage in the region of the hepatic f lexure. The small vessel feeding the site of hemorrhage was embolized with a sm all amount of Gelfoam and a 2 mm embolization coil. The patient tolerated the p rocedure well. Chest X-Ray 01/15/18 1015 Signed Impressions: CONCLUSION: No acute cardiopulmonary findings. GI Bleed Scan Nuclear Medicine 01/15/18 0000 Signed Impressions: CONCLUSION: 1. Negative GI bleeding study. Procedures Colonoscopy Embolization of SMA with Gelfoam and 2 mm coil by interventional radiology Objective Remarks GENERAL: Well-nourished, well-developed patient. SKIN: Warm and dry. HEAD: Normocephalic. EYES: No scleral icterus. No injection or drainage. NECK: Supple, trachea midline. No JVD or lymphadenopathy. CARDIOVASCULAR: Regular rate and rhythm without murmurs, gallops, or rubs. RESPIRATORY: Breath sounds equal bilaterally. No accessory muscle use. Diffuse fine rhonchi bilaterally GASTROINTESTINAL: Abdomen soft, non-tender, nondistended. MUSCULOSKELETAL: No cyanosis, or edema. NEURO EXAM: Cranial nerves II through XII grossly intact. Strength is equal and symmetric. Normal sensation. Urinary Catheter: No Assessment to: Continue Vascular Central Line Catheter: No Assessment to: Continue A/P Assessment and Plan Neuro/Psych: Depressive disorder NOS Acetaminophen 600 mg p.o. every 6 hours as needed fever Hydrocodone/acetaminophen 5/325 one tablet every 4 hours as needed pain 1 through 5 Morphine sulfate 2 mg IV every 2 hours as needed pain 6-10 Continue home medication for depression on citalopram 10 milligrams daily CV: Essential hypertension Hyperlipidemia 4.8 cm AAA -evaluated previously by Dr. Bay 01/11 Holding home medication amlodipine 10 mg daily for hypertension Home medication atorvastatin 80 mg at night along with fish oil/cholecalciferol 1200/1000 1 tablet daily Currently normal saline at 100 cc an hour Cardiology consulted for sinus bradycardia Resp: COPD with ongoing tobaccoism Nasal cannula to maintain saturations greater than or equal to 92% Incentive spirometry while awake Albuterol/ipratropium aerosols every 4 hours with albuterol aerosols every 2 hours as needed for dyspnea Patient is on albuterol inhaler at home Nicotine patch 21 mg daily. Self-evaluation cessation booklet will be provided GI: Status post embolization of the SMA with Gelfoam/2 mm coils Lower GI bleed Descending sigmoid diverticulosis Rectal polyp status post cold biopsy by Dr. Stevens 01/16 Internal and external hemorrhoids History of peptic ulcer disease Hypoalbuminemia Low total protein Status post embolization of the SMA with Gelfoam/2 mm coils by IR 01/16 Monitor for bowel ischemia. Lactate currently 1.1. Clear liquid diet ordered Pantoprazole for GI prophylaxis. Docusate sodium/senna 1 tablet twice daily for bowel regimen Colonoscopy 01/16 revealed rectal polyp status post cold biopsy. Descending sigmoid diverticulosis. Internal and external hemorrhoids. : History of penile implant 3 Status post prostatectomy No Mcmanus indicated Endo: Sliding scale insulin with Accu-Cheks to maintain euglycemia Check TSH in a.m. Renal: Creatinine currently within normal limits Monitor urine output Accurate I's and O's Heme: Normocytic anemia 2 PRBCs on hold. Recheck hemoglobin this evening and in a.m. No indication for transfusion of blood products as of this time ID: Monitor for signs and symptomatology of infection MSK: L2 sclerotic bone lesion Likely outpatient follow-up FEN: Replace electrolytes as clinically indicated Access -Utilize peripheral IV. Central line if indicated Prophylax -GI -pantoprazole -DVT -SCD Level 2 follow-up Stable from a critical care medicine standpoint. Assign care to hospitalist in a.m. 01/18. Cash Engle MD Jan 17, 2018 08:08
[2018-01-17] MEDS ORDERED: BISACODYL 10 MG SUPP RECTAL PRN (08:15)
[2018-01-17] MEDS ORDERED: CHLORHEXIDINE GLUCONATE 2 % 1 PACK (2 CLOTHS) TOP PRN (08:15)
[2018-01-17] MEDS ORDERED: SENNOSIDES 8.6 MG TAB PO PRN (08:15)
[2018-01-17] MEDS ORDERED: NURSING INFORMATION XX SCH (08:15)
[2018-01-17] MEDS ORDERED: RESP: ALBUTEROL 2.5 MG/3 ML NEB (PRN) NEB (08:15)
[2018-01-17] MEDS ORDERED: SODIUM CHLORIDE 0.9% FLUSH 10 ML FLUSH IV FLUSH PRN (08:15)
[2018-01-17] MEDS ORDERED: ACETAMINOPHEN 325 MG TAB PO PRN (08:15)
[2018-01-17] MEDS ORDERED: LACTULOSE SYRUP 20 GM/30 ML CUP PO PRN (08:15)
[2018-01-17] MEDS ORDERED: MORPHINE SULFATE 4 MG/ML INJ IV PUSH PRN (08:15)
[2018-01-17] MEDS ORDERED: MAGNESIUM HYDROXIDE SUSP 30 ML CUP PO PRN (08:15)
[2018-01-17] MEDS ORDERED: NON-FORMULARY DRUG (Fish Oil-Cholecalciferol (Fish Oil + D3) 1 CAP) PO SCH (09:00)
[2018-01-17] MEDS: DOCUSATE SODIUM 50 MG/SENNA 8.6 MG TAB PO SCH ×2 (09:00→20:26)
[2018-01-17] MEDS: CITALOPRAM HYDROBROMIDE 20 MG TAB PO SCH (09:00)
[2018-01-17] MEDS: OXYBUTYNIN CHLORIDE 5 MG TAB PO SCH ×2 (09:31→20:25)
[2018-01-17] MEDS: SODIUM CHLORIDE 0.9% FLUSH 10 ML FLUSH IV FLUSH SCH ×2 (09:32→20:27)
[2018-01-17] MEDS: PANTOPRAZOLE SOD 40 MG DELAYED RELEASE TAB PO SCH (09:32)
[2018-01-17] MEDS: SODIUM CHLOR 0.9% 1000 ML INJ 1,000 ML IV SCH ×2 (11:34→18:22)
--- NOTE | 2018-01-17 11:43 | MB ---
cc: Frankie Virk MD DATE: 01/17/2018 REASON FOR CONSULTATION: Syncope. HISTORY OF PRESENT ILLNESS: The patient is a pleasant 72-year-old gentleman, who presented with syncope and bright red blood per rectum. He has been undergoing a full GI workup, but has apparently had multiple episodes of syncope this admission. However, I do not see any good rhythm documentation during these episodes. He generally has been in a sinus rhythm or mild sinus bradycardia, according to the telemetry. The patient's daughter is at bedside and states that most of these episodes occurred in the setting of either coughing or having a BM. His initial site of bleeding has now been embolized. He is currently asymptomatic, denying chest pain, shortness of breath, lightheadedness or dizziness. Denies any prior cardiac problems. PAST MEDICAL HISTORY: Recent multiple syncopal episodes, abdominal aortic aneurysm, chronic obstructive pulmonary disease, hyperlipidemia, peripheral vascular disease. CURRENT MEDICATIONS: Protonix 40 mg daily. ALLERGIES: NO KNOWN DRUG ALLERGIES. PHYSICAL EXAMINATION: VITAL SIGNS: Afebrile, pulse 62, respiratory rate 23, BP 153/63, saturating 100 on 2 liters. GENERAL: Pleasant, well-appearing gentleman in no distress. NECK: No JVD. LUNGS: Clear to auscultation bilaterally. CARDIOVASCULAR: Regular rate and rhythm, a 2/6 systolic murmur is appreciated. ABDOMEN: Benign. EXTREMITIES: No edema. LABORATORY DATA: White count 9.6, hematocrit 23.1, platelets 167. Sodium 144, potassium 3.8, chloride 111, bicarbonate 25.5, BUN 12, creatinine 0.82, glucose 125. EKG shows sinus rhythm with no acute ST or T-wave changes. ASSESSMENT AND PLAN: Syncope. The patient has had multiple episodes of syncope, including before coming to the hospital and apparently at least 1 or 2 in the hospital, though does not seem like he was on the monitor, or at least no rhythm strip was recorded. He is mostly in sinus bradycardia. He does have what sounds like moderate valvular disease, which is confirmed preliminarily by the marine diesel technician and I will review the formal echo later, but it does not appear at this point to be severe aortic stenosis, only moderate. Given the multiple syncopal episodes, I would plan for a loop recorder for long-term followup of his heart rate. The patient agrees with this plan and will be done tomorrow unless I decide his echocardiogram reveals more significant valvular disease than initially suspected. I will also ask for carotid Dopplers to ensure no significant vascular disease. Further recommendations based on clinical course. Thank you again for the opportunity to participate in this patient's care. MD YOLANDA Lee/BRYAN , 10:02 AM , 11:41 AM
--- NOTE | 2018-01-17 12:29 | HHI.GIFU ---
Subjective Remarks Patient is awake resting in the bed is also in the room Currently patient denies any nausea vomiting or abdominal pain Answering questions appropriately (Yisel Muniz) Objective Vitals I&O Vital Signs Date Time Temp Pulse Resp B/P (MAP) Pulse Ox O2 Delivery O2 Flow Rate FiO2 01/17/18 10:00 64 01/17/18 08:00 61 01/17/18 07:00 100 Nasal Cannula 2.00 01/17/18 06:00 62 01/17/18 04:00 72 01/17/18 04:00 98.5 72 23 153/63 (93) 98 01/17/18 02:56 62 13 94/47 (63) 100 01/17/18 02:00 65 01/17/18 01:56 65 14 112/55 (74) 95 01/17/18 00:56 66 17 115/55 (75) 99 01/17/18 00:00 76 01/17/18 00:00 98.6 77 18 103/51 (68) 95 01/16/18 23:56 65 14 115/67 (83) 96 01/16/18 22:56 65 14 128/58 (81) 94 01/16/18 22:26 96.7 95 17 131/61 (84) 93 01/16/18 21:30 97.5 65 17 129/60 (83) 95 Nasal Cannula 3 01/16/18 21:15 63 17 120/56 (77) 94 Nasal Cannula 3 01/16/18 21:00 65 18 121/55 (77) 95 Nasal Cannula 3 01/16/18 20:49 68 20 123/59 (80) 98 Nasal Cannula 4 01/16/18 20:46 53 19 72/42 (52) 100 Nasal Cannula 4 01/16/18 20:45 56 26 72/46 (55) 99 Nasal Cannula 4 01/16/18 20:34 97.6 66 20 125/59 (81) 92 Nasal Cannula 4 01/16/18 16:35 97.6 77 18 136/64 (88) 96 01/16/18 14:45 72 147/68 (94) 01/16/18 13:10 97.5 62 18 147/71 (96) 96 01/16/18 12:55 59 17 118/56 (76) 95 Room Air 01/16/18 12:45 57 17 111/63 (79) 95 Room Air 01/16/18 12:39 97.9 60 17 106/54 (71) 93 Nasal Cannula 3 I/O 01/16/18 01/16/18 01/16/18 01/17/18 01/17/18 01/17/18 07:00 15:00 23:00 07:00 15:00 23:00 Intake Total 300 ml 2480 ml Output Total 0 ml 750 ml Balance 300 ml 2480 ml -750 ml Intake Oral 30 ml IV Total 300 ml 2450 ml Output Urine Total 0 ml 750 ml # Voids 2 2 # Bowel Movements 0 Laboratory Laboratory Tests Test 01/16/18 17:06 01/16/18 17:19 01/16/18 22:05 01/17/18 04:35 White Blood Count 8.1 11.5 9.6 Red Blood Count 3.42 2.87 2.53 Hemoglobin 11.3 8.9 8.1 Hematocrit 31.2 26.2 23.1 Mean Corpuscular Volume 91.1 91.3 91.3 Mean Corpuscular Hemoglobin 32.9 31.1 32.1 Mean Corpuscular Hemoglobin Concent 36.1 34.0 35.1 Red Cell Distribution Width 13.2 13.5 13.4 Platelet Count 197 170 167 Mean Platelet Volume 7.4 7.7 7.4 Neutrophils (%) (Auto) 55.9 87.3 Lymphocytes (%) (Auto) 33.3 8.6 Monocytes (%) (Auto) 8.3 3.8 Eosinophils (%) (Auto) 2.3 0.1 Basophils (%) (Auto) 0.2 0.2 Neutrophils # (Auto) 4.5 10.1 Lymphocytes # (Auto) 2.7 1.0 Monocytes # (Auto) 0.7 0.4 Eosinophils # (Auto) 0.2 0.0 Basophils # (Auto) 0.0 0.0 CBC Comment AUTO DIFF DIFF FINAL Differential Comment AUTO DIFF CONFIRMED Platelet Estimate NORMAL Platelet Morphology Comment NORMAL Blood Urea Nitrogen 12 Creatinine 0.82 Random Glucose 125 Total Protein 5.9 Albumin 3.0 Calcium Level 7.9 Magnesium Level 2.2 Alkaline Phosphatase 93 Aspartate Amino Transf (AST/SGOT) 16 Alanine Aminotransferase (ALT/SGPT) 25 Total Bilirubin 0.3 Sodium Level 144 Potassium Level 3.8 Chloride Level 111 Carbon Dioxide Level 25.5 Anion Gap 8 Estimat Glomerular Filtration Rate 92 Total Creatine Kinase 127 Creatine Kinase MB 1.7 Troponin I LESS THAN 0.02 Lactic Acid Level 1.1 Test 01/17/18 09:06 01/17/18 10:17 Carcinoembryonic Antigen 2.7 Imaging Last Impressions Abdominal Angiography 01/16/18 0000 Signed Impressions: CONCLUSION: 1. Angiography demonstrated active hemorrhage in the region of the hepatic f lexure. The small vessel feeding the site of hemorrhage was embolized with a sm all amount of Gelfoam and a 2 mm embolization coil. The patient tolerated the p rocedure well. Chest X-Ray 01/15/18 1015 Signed Impressions: CONCLUSION: No acute cardiopulmonary findings. GI Bleed Scan Nuclear Medicine 01/15/18 0000 Signed Impressions: CONCLUSION: 1. Negative GI bleeding study. Administered Medications Medications (Trade) Dose Ordered Sig/Olu Route PRN Reason Start Time Stop Time Status Last Admin Dose Admin Sodium Chloride 1,000 ml @ 100 mls/hr Q10H IV 01/15/18 14:00 01/17/18 11:34 Nicotine (Habitrol 21 Mg Patch.24 Hr) 1 patch Q24H T-DERMAL 01/15/18 21:00 01/15/18 23:32 Oxybutynin Chloride (Ditropan) 5 mg Q12HR PO 01/16/18 21:00 01/17/18 09:31 Pantoprazole Sodium (Protonix) 40 mg DAILY PO 01/17/18 09:00 01/17/18 09:32 Sodium Chloride (NS Flush) 2 ml BID IV FLUSH 01/17/18 09:00 01/17/18 09:32 Physical Exam HEENT: normocephalic; atraumatic; pale NECK: Supple CHEST: Even, unlabored CARDIAC: Regular rhythm, systolic murmur ABDOMEN: Round, soft, nondistended, nontender; bowel sounds are present in all four quadrants. EXTREMITIES: No edema. SKIN no rash CLERICAL ADVISER: Answering simple questions appropriately (Yisel Muniz) Assessment and Plan Assessment: (1) Rectal bleed ICD Codes: K62.5 - Hemorrhage of anus and rectum Plan Rectal bleeding maroon-colored dark stools, possible diverticular bleed. Versus polyps Borderline anemia current hemoglobin 13.3 Syncopal episode with rectal bleeding probably ,vasovagal 72-year-old male who was evaluated in the [facility] several days ago for the same symptoms of rectal bleeding dark maroon stools. Patient had stable hemoglobin and was to follow-up with GI on an outpatient basis but he had returned symptoms this a.m of multiple dark maroon stools generalized weakness and fatigue. Patient also had syncopal episodes with his rectal bleeding which could have been vasovagal. Also has history of aneurysm being evaluated per Dr. Laird and worked up on an outpatient basis. Patient had EGD colonoscopy 9 or 10 years ago in the [facility] and states a history of polyps. Patient currently denies any nausea vomiting, dyspepsia, dysphagia, hematemesis. Patient is borderline anemic with hemoglobin 13.3 and GI bleed. Patient's also been a long-term smoker states 2-3 packs a day. [facility] also [facility] and [facility]. 01/17/2018 patient had colonoscopy on 01/16/2018, findings including diverticulosis, 3 polyps in the rectum with removal, internal medium sized hemorrhoids and external hemorrhoids. Patient is currently awake answering simple questions appropriately he and his are currently signing permits for loop recorder to be done tomorrow. Abdominal angiography also done on 01/16 showing active hemorrhage in the region of the hepatic flexure. Small vessel feeding into the site of hemorrhage was embolized and patient tolerated procedure well. It has been discussed with Dr. Stevens to consider repeating colonoscopy this next week after patient receives loop recorder and cardiac clearance to evaluate the region of the hepatic flexure. Currently being evaluated per vascular surgery. If patient has further bleeding consider capsule endoscopy. Plan Diet Biopsies pending Fiber 2 teaspoons daily with high-fiber diet Probiotics Yearly rectal exams After repeat colonoscopy this coming up week further recommendations will follow and pending biopsies PPI Monitor labs Supportive care to patient and his Patient was seen per myself and Dr. Stevens, this note was written on her behalf (Yisel Muniz) Physician Comments seen, examined agree with above (Briana Stevens MD) Yisel Muniz Jan 17, 2018 12:29 Briana Stevens MD Jan 17, 2018 21:34
[2018-01-17] MEDS: RESP: ALBUTEROL 2.5 MG/IPRATROPIUM 0.5 MG NEB (SCH) NEB ×4 (12:38→23:28)
--- NOTE | 2018-01-17 13:52 | ECHRPT ---
Indication: CVA/TIA CONCLUSIONS Normal left ventricular size. Mild concentric left ventricular hypertrophy. No regional wall motion abnormalities are present. The left ventricular systolic function is normal with an estimated ejection fraction in the range of 60-65%. Trace mitral valve regurgitation. Diffuse calcification of the aortic valve. Mild to moderate aortic valve stenosis. Mild to moderate aortic valve regurgitation. Aortic valve area is 1.2 cm. Aortic valve mean gradient is 20.5 mmHg. There is trace tricuspid valve regurgitation. The estimated pulmonary arterial pressure is 26.6 mmHg. BP: / HR: Rhythm: Sinus MEASUREMENTS (Male / Female) Normal Values Technical Quality:Good 2D ECHO LV Diastolic Diameter PLAX 5.0 cm 4.2 - 5.9 / 3.9 - 5.3 cm LV Systolic Diameter PLAX 3.6 cm IVS Diastolic Thickness 1.5 cm 0.6 - 1.0 / 0.6 - 0.9 cm LVPW Diastolic Thickness 1.5 cm 0.6 - 1.0 / 0.6 - 0.9 cm LV Relative Wall Thickness 0.6 RV Internal Dim ED PLAX 3.4 cm LVOT Diameter 1.8 cm LA Systolic Diameter LX 4.0 cm 3.0 - 4.0 / 2.7 - 3.8 cm LV Ejection Fraction MOD 4C 61.6 % LV Ejection Fraction 4C AL 64.5 % M-MODE Aortic Root Diameter MM 3.0 cm LA Systolic Diameter MM 3.9 cm LA Ao Ratio MM 1.3 AV Cusp Separation MM 1.8 cm DOPPLER AV Peak Velocity 334.5 cm/s AV Peak Gradient 44.8 mmHg AV Mean Gradient 20.5 mmHg AV Velocity Time Integral 65.6 cm AI Peak Velocity 344.5 cm/s AI Peak Gradient 47.5 mmHg AI Pressure Half Time 430.0 ms LVOT Peak Velocity 141.0 cm/s LVOT Peak Gradient 8.0 mmHg LVOT Velocity Time Integral 30.2 cm AV Area Cont Eq vti 1.2 cm AV Area Cont Eq pk 1.1 cm MV Area PHT 2.7 cm Mitral E Point Velocity 87.4 cm/s Mitral A Point Velocity 103.0 cm/s Mitral E to A Ratio 0.8 LV E' Lateral Velocity 8.0 cm/s Mitral E to LV E' Lateral Ratio 10.9 LV E' Septal Velocity 5.7 cm/s Mitral E to LV E' Septal Ratio 15.5 TR Peak Velocity 204.0 cm/s TR Peak Gradient 16.6 mmHg Right Atrial Pressure 10.0 mmHg Pulmonary Artery Systolic Pressu 26.6 mmHg Right Ventricular Systolic Press 26.6 mmHg PV Peak Velocity 122.0 cm/s PV Peak Gradient 6.0 mmHg FINDINGS LEFT VENTRICLE The left ventricular systolic function is normal with an estimated ejection fraction in the range of 60-65%. Normal left ventricular size. Mild concentric left ventricular hypertrophy. No regional wall motion abnormalities are present. Doppler parameters are consistent with impaired left ventricular relaxtion (grade 1 diastolic dysfun ction). RIGHT VENTRICLE Normal right ventricular size and systolic function. LEFT ATRIUM The left atrial size is normal. RIGHT ATRIUM The right atrial size is normal. ATRIAL SEPTUM Normal atrial septal thickness without atrial level shunting by limited color doppler interrogation. AORTA The aortic root and proximal ascending aorta are normal in size on limited imaging. MITRAL VALVE Structurally normal mitral valve. Trace mitral valve regurgitation. AORTIC VALVE Trileaflet aortic valve. Diffuse calcification of the aortic valve. Mild to moderate aortic valve stenosis. Aortic valve area is 1.2 cm. Aortic valve mean gradient is 20.5 mmHg. Mild to moderate aortic valve regurgitation. TRICUSPID VALVE Structurally normal tricuspid valve. There is trace tricuspid valve regurgitation. The estimated pulmonary arterial pressure is 26.6 mmHg. PULMONARY VALVE No pulmonary valve regurgitation or stenosis. VESSELS The inferior vena cava is normal in size. PERICARDIUM No pericardial effusion. Frankie Virk MD (Electronically Signed) Final Date:17 January 2018 13:52
--- NOTE | 2018-01-17 15:09 | MB ---
cc: Frankie Virk MD DATE: 01/17/2018 No dictation. Frankie Welsh. MD Sully YOLANDA/TL , 09:55 AM , 11:35 AM
--- NOTE | 2018-01-17 19:19 | MG ---
cc: Bakari Perez MD, PhD DATE OF THE STUDY: 01/17. TEST NUMBER: [id number]. TECHNIQUE: A 17-channel EEG. DESCRIPTION: Background rhythm reveals alpha rhythm frequency 8 Hz. There is some slowing in the theta range. No lateralizing features seen. No epileptiform features are seen. Photic results in a modest driving response. INTERPRETATION: EEG shows mild slowing consistent with a mild encephalopathy. This is intermixed with normal alpha rhythm. Bakari Perez MD, PhD DL/JESSICA , 06:42 PM , 07:18 PM
--- NOTE | 2018-01-17 20:21 | PD.CAR.PN ---
CVT Progress Note Subjective/Hospital Course: 01/17/2018 Patient evaluated full consult dictated I discussed the care with the and the patient and my recommendations are as follows Patient needs repeat colonoscopy now that we have nowhere to look If patient only has an AV malformation and he does not rebleed he can go home in next few days If he rebleeds while in the hospital he can have more/repeated embolization in the area If patient goes home he has about 30% chance to rebleed again from this at which point he can also have re-embolization or if he bleeds more he may need right hemicolectomy On the other hand if patient has a tumor in this area then he needs surgery at this admission in form of extended right hemicolectomy As far as his abdominal aortic aneurysm concerned right now this is 4.9 cm and although it grew fast in last year or so this is not the primary concern and risk of rupture is low but not 0%. In the future depending on how patient does with his colon problem he will be a candidate for endovascular aortic aneurysm repair Objective: Vital Signs Date Time Temp Pulse Resp B/P (MAP) Pulse Ox O2 Delivery O2 Flow Rate FiO2 01/17/18 18:00 77 01/17/18 18:00 76 18 137/63 (87) 98 01/17/18 17:00 59 20 132/61 (84) 99 01/17/18 16:00 64 01/17/18 16:00 98.0 64 20 126/60 (82) 100 01/17/18 15:00 66 16 120/58 (78) 100 01/17/18 14:00 70 01/17/18 14:00 70 12 136/62 (86) 99 01/17/18 13:00 80 29 113/55 (74) 93 01/17/18 12:47 98 Nasal Cannula 2.00 01/17/18 12:00 72 21 127/60 (82) 99 01/17/18 12:00 72 01/17/18 11:00 72 26 104/57 (73) 97 01/17/18 10:00 70 22 140/65 (90) 99 01/17/18 10:00 64 01/17/18 09:00 70 19 152/63 (92) 98 01/17/18 08:00 58 15 135/63 (87) 100 01/17/18 08:00 61 01/17/18 07:00 100 Nasal Cannula 2.00 01/17/18 07:00 97.6 63 12 111/52 (71) 98 01/17/18 06:00 62 01/17/18 04:00 72 01/17/18 04:00 98.5 72 23 153/63 (93) 98 01/17/18 02:56 62 13 94/47 (63) 100 01/17/18 02:00 65 01/17/18 01:56 65 14 112/55 (74) 95 01/17/18 00:56 66 17 115/55 (75) 99 01/17/18 00:00 76 01/17/18 00:00 98.6 77 18 103/51 (68) 95 01/16/18 23:56 65 14 115/67 (83) 96 01/16/18 22:56 65 14 128/58 (81) 94 01/16/18 22:26 96.7 95 17 131/61 (84) 93 01/16/18 21:30 97.5 65 17 129/60 (83) 95 Nasal Cannula 3 01/16/18 21:15 63 17 120/56 (77) 94 Nasal Cannula 3 01/16/18 21:00 65 18 121/55 (77) 95 Nasal Cannula 3 01/16/18 20:49 68 20 123/59 (80) 98 Nasal Cannula 4 01/16/18 20:46 53 19 72/42 (52) 100 Nasal Cannula 4 01/16/18 20:45 56 26 72/46 (55) 99 Nasal Cannula 4 01/16/18 20:34 97.6 66 20 125/59 (81) 92 Nasal Cannula 4 Labs: Laboratory Tests Test 01/17/18 09:06 01/17/18 10:17 01/17/18 17:38 Carcinoembryonic Antigen 2.7 NG/ML (0.2-5.0) Nasal Screen MRSA (PCR) MRSA NOT DETECTED (NOT Hemoglobin 7.1 GM/DL (13.0-17.0) Result Diagram: 01/17/18 1738 01/16/18 1719 Norma Bay MD Jan 17, 2018 20:21
[2018-01-17] MEDS: NICOTINE 21 MG/24 HR PATCH T-DERMAL SCH (20:25)
[2018-01-17] MEDS: ATORVASTATIN 80 MG TAB PO SCH (20:25)
[2018-01-17] MEDS: REMOVE OLD PATCH T-DERMAL SCH (20:25)
--- NOTE | 2018-01-17 21:30 | MB ---
cc: Norma Bay MD DATE: 01/17/2018 CONSULTING PHYSICIAN: Dr. Bay, Trauma Surgery REASON FOR CONSULTATION: Lower GI bleed, anemia and abdominal aortic aneurysm. HISTORY OF PRESENT ILLNESS: This 72-year-old male comes to the emergency room now with episodes of dark red blood in the stool and feeling weak, somewhat syncopal. He was recently admitted to [facility] with an episode of such bleeding, but his hemoglobin was stable. Underwent EGD and no obvious source of bleeding was identified at that time. The patient now is bleeding from lower GI tract, dropped hemoglobin, was treated appropriately and I was consulted to see the patient. I discussed it with Dr. Stevens and recommended angiogram with possible embolization to see the site. PAST MEDICAL HISTORY: That of known abdominal aortic aneurysm, peripheral vascular disease, COPD, diverticulosis and diverticulitis, prostate tumor. SURGICAL HISTORY: Prostatectomy. His last colonoscopy was about 10 years ago. PHYSICAL EXAMINATION: GENERAL: Reveals a 72-year-old gentleman in no acute distress. HEENT: Normocephalic. No trauma to the head. Pupils equal and reactive. Extraocular muscles intact. The patient appears to be somewhat pale, but otherwise okay, probably hemoglobin about 8 or so. NECK: Bilateral carotid pulses. No bruits. CHEST: Bilateral breath sounds, decreased on both lung pickard, consistent with some degree of pulmonary cachexia and loss of musculature due to COPD. HEART: Regular rhythm. ABDOMEN: Soft. No rebound, no guarding, no masses and really not tender. EXTREMITIES: Grossly within normal limits, with good proximal and distal pulses. No signs of acute vascular deficit. BACK: Normal. NEUROLOGIC: The patient is grossly intact. IMPRESSION AND PLAN: This is a 72-year-old gentleman with lower gastrointestinal bleed. He underwent yesterday angiogram by Dr. 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 This was embolized successfully and the patient then stopped bleeding, now he is still passing old blood. He is now lying in the unit stable. I discussed the care with his and him. At this point, there are several case scenarios that might develop. One, the patient definitely needs repeat colonoscopy now that we know what we are looking at. For the lesion in the hepatic flexure area, looks like a tumor actually, although on the CAT scan he had on the last admission, I do not see anything unusual there. It could also be safely an atrioventricular malformation as such. If this is an atrioventricular malformation and there is no tumor and the patient does not bleed again, he can go home. If the patient rebleeds during this admission, he can have another embolization in the area. If the patient goes home and rebleeds, which is going to occur in about 30% of patients at least, then he can come back and have another embolization. On the other hand, if there is a tumor present there, then the patient will need clearly hemicolectomy and removal of the same. These are all possible case scenarios and I explained those very much in detail about 3 times over to make sure that the family understands what this is about. Right now there is not much for me to do, but I will be available for any of these possible scenarios if they develop. Again, the patient can rebleed from this even if embolization and may need a second embolization or even resection for the same. Lets first see what the colonoscopy shows and we will go from there. It should be noted that throughout the discussion, the patient's was extremely rude, negative and hostile. She criticized extensively other physicians including radiologist, hospitalists, application programmer analyst and ordnance engineering technician to the point that I could not even put a sentence in without her interrupting and reverting to some critique. She stated repeatedly that those people do not know what they are doing and are killing her . Critical care 34 minutes. MD GAMA Tyler/JESSICA , 08:18 PM , 09:29 PM [place]
[2018-01-18] VITALS (18 sets, daily range): BP systolic 118–139; BP diastolic 56–70; PULSE 55–77; RESP 15–22; TEMP 97.7–99; O2SAT 96–100
[2018-01-18] MEDS: SODIUM CHLOR 0.9% 1000 ML INJ 1,000 ML IV SCH ×2 (03:03→14:22)
[2018-01-18] MEDS: CHLORHEXIDINE GLUCONATE 2 % 1 PACK (2 CLOTHS) TOP SCH (03:05)
[2018-01-18] MEDS: RESP: ALBUTEROL 2.5 MG/IPRATROPIUM 0.5 MG NEB (SCH) NEB ×5 (03:34→20:00)
[2018-01-18 07:01] LABS: HEMATOCRIT 26.9 % (39.0-51.0); HEMOGLOBIN 9.4 GM/DL (13.0-17.0); MEAN CELL VOLUME 87.9 FL (80.0-100.0); MEAN CORPUSCULAR HEMOGLOBIN 30.9 PG (27.0-34.0); MEAN CORPUSCULAR HGB CONC 35.1 % (32.0-36.0); MEAN PLATELET VOLUME 7.8 FL (7.0-11.0); PLATELET COUNT 148 TH/MM3 (150-450); RED BLOOD COUNT 3.06 MIL/MM3 (4.50-5.90); RED CELL DISTRIBUTION WIDTH 14.8 % (11.6-17.2); WHITE BLOOD COUNT 9.5 TH/MM3 (4.0-11.0)
[2018-01-18 07:25] LABS: ALBUMIN 2.7 GM/DL (3.4-5.0); AST (GOT) 13 U/L (15-37); BICARBONATE 24.4 MEQ/L (21.0-32.0); BLOOD UREA NITROGEN 10 MG/DL (7-18); CHLORIDE 107 MEQ/L (98-107); CREATININE 0.56 MG/DL (0.60-1.30); GLOMERULAR FILTRATION RATE 143 ML/MIN (>89); GLUCOSE,RANDOM 84 MG/DL (74-106); MAGNESIUM 2.1 MG/DL (1.5-2.5); SODIUM (NA) 141 MEQ/L (136-145)
[2018-01-18 07:26] LABS: ALT (GPT) 19 U/L (12-78); PHOSPHORUS 2.9 MG/DL (2.5-4.9)
[2018-01-18 07:36] LABS: ALKALINE PHOSPHATASE 78 U/L (45-117); TOTAL BILIRUBIN ADULT 0.9 MG/DL (0.2-1.0); TOTAL PROTEIN 5.4 GM/DL (6.4-8.2)
[2018-01-18] MEDS: LACTOBACILLUS ACIDOPHILUS TAB PO SCH (08:38)
[2018-01-18] MEDS: CITALOPRAM HYDROBROMIDE 20 MG TAB PO SCH ×2 (08:39→09:00)
[2018-01-18] MEDS: PANTOPRAZOLE SOD 40 MG DELAYED RELEASE TAB PO SCH (08:39)
[2018-01-18] MEDS: OXYBUTYNIN CHLORIDE 5 MG TAB PO SCH ×2 (08:39→21:28)
[2018-01-18] MEDS: DOCUSATE SODIUM 50 MG/SENNA 8.6 MG TAB PO SCH ×2 (08:41→21:00)
[2018-01-18] MEDS: SODIUM CHLORIDE 0.9% FLUSH 10 ML FLUSH IV FLUSH SCH ×2 (08:41→21:00)
--- NOTE | 2018-01-18 09:28 | PD.CARD.PN ---
Subjective Subjective Remarks sb on tele, he canceled loop recorder. Objective Medications Current Medications Medications (Trade) Dose Ordered Sig/Olu Route Start Time Stop Time Status Last Admin Sodium Chloride 1,000 ml @ 100 mls/hr Q10H IV 01/15/18 14:00 01/17/18 11:34 (Narcan Inj) 0.4 mg UNSCH PRN IV PUSH 01/15/18 13:15 (Habitrol 21 Mg Patch.24 Hr) 1 patch Q24H T-DERMAL 01/15/18 21:00 01/17/18 20:25 Miscellaneous Information 1 Q24H T-DERMAL 01/15/18 21:00 (Lipitor) 80 mg HS PO 01/16/18 21:00 01/17/18 20:25 (CeleXA) 10 mg DAILY PO 01/17/18 09:00 (Ditropan) 5 mg Q12HR PO 01/16/18 21:00 01/18/18 08:39 (Vasotec Inj) 1.25 mg Q6H PRN IV PUSH 01/16/18 10:00 (Protonix) 40 mg DAILY PO 01/17/18 09:00 01/18/18 08:39 (Duoneb Neb) 1 ampule Q4HR NEB NEB 01/17/18 12:00 01/17/18 12:38 (Albuterol Neb) 2.5 mg Q2HR NEB PRN NEB 01/17/18 08:15 (NS Flush) 2 ml UNSCH PRN IV FLUSH 01/17/18 08:15 (NS Flush) 2 ml BID IV FLUSH 01/17/18 09:00 01/18/18 08:41 (Tylenol) 650 mg Q6H PRN PO 01/17/18 08:15 ([place] 5-325 Mg) 1 tab Q4H PRN PO 01/17/18 08:15 (Morphine Inj) 2 mg Q2H PRN IV PUSH 01/17/18 08:15 [place] [place] [facility] 1 Q361D XX 01/17/18 08:15 (Chlorhexidine 2% Cloth) 3 pack Taper DAILY@04 TOP 01/18/18 04:00 01/14/19 03:59 01/18/18 03:05 (Chlorhexidine 2% Cloth) 3 pack UNSCH PRN TOP 01/17/18 08:15 (Ann-Marie-Colace) 1 tab BID PO 01/17/18 09:00 01/18/18 08:41 (Milk Of Magnesia Liq) 30 ml Q12H PRN PO 01/17/18 08:15 (Senokot) 17.2 mg Q12H PRN PO 01/17/18 08:15 (Dulcolax Supp) 10 mg DAILY PRN RECTAL 01/17/18 08:15 (Lactulose Liq) 30 ml DAILY PRN PO 01/17/18 08:15 (Lactinex) 1 tab DAILY PO 01/18/18 09:00 01/18/18 08:38 Vital Signs / I&O Vital Signs Date Time Temp Pulse Resp B/P (MAP) Pulse Ox O2 Delivery O2 Flow Rate FiO2 01/18/18 07:00 100 Nasal Cannula 2.00 01/18/18 06:00 70 01/18/18 06:00 70 16 118/59 (78) 98 01/18/18 05:00 62 16 138/65 (89) 100 01/18/18 04:00 58 01/18/18 04:00 57 15 119/56 (77) 99 01/18/18 03:00 65 15 128/59 (82) 97 01/18/18 02:00 59 01/18/18 02:00 61 16 139/63 (88) 99 01/18/18 01:31 98.5 68 19 131/70 99 01/18/18 01:26 98.4 68 19 122/67 98 01/18/18 01:21 98.9 73 18 118/56 96 01/18/18 01:00 99.0 65 18 118/56 (76) 98 01/18/18 00:00 62 01/18/18 00:00 99.0 62 18 124/58 (80) 100 01/17/18 23:00 76 21 123/58 (79) 100 01/17/18 22:10 98.6 78 26 133/61 95 01/17/18 22:05 99.0 82 17 130/61 98 01/17/18 22:00 74 01/17/18 22:00 74 26 130/61 (84) 99 01/17/18 22:00 99.0 80 18 133/60 98 01/17/18 21:00 81 22 135/63 (87) 97 01/17/18 20:00 77 23 141/67 (91) 97 01/17/18 20:00 62 01/17/18 20:00 81 01/17/18 19:00 97 Nasal Cannula 2.00 01/17/18 19:00 98.4 81 22 135/63 (87) 97 01/17/18 18:00 77 01/17/18 18:00 76 18 137/63 (87) 98 01/17/18 17:00 59 20 132/61 (84) 99 01/17/18 16:00 64 01/17/18 16:00 98.0 64 20 126/60 (82) 100 01/17/18 15:00 66 16 120/58 (78) 100 01/17/18 14:00 70 01/17/18 14:00 70 12 136/62 (86) 99 01/17/18 13:00 80 29 113/55 (74) 93 01/17/18 12:47 98 Nasal Cannula 2.00 01/17/18 12:00 72 21 127/60 (82) 99 01/17/18 12:00 72 01/17/18 11:00 72 26 104/57 (73) 97 01/17/18 10:00 70 22 140/65 (90) 99 01/17/18 10:00 64 I/O 01/17/18 01/17/18 01/17/18 01/18/18 01/18/18 01/18/18 07:00 15:00 23:00 07:00 15:00 23:00 Intake Total 720 ml 1620 ml Output Total 750 ml 500 ml 750 ml Balance -750 ml 220 ml 870 ml Intake Oral 720 ml 800 ml Packed Cells 800 ml Blood Product IV Normal Saline Flush 20 ml Output Urine Total 750 ml 500 ml 750 ml # Voids 2 4 # Bowel Movements 0 0 0 Physical Exam GENERAL: This is a well-nourished, well-developed patient, in no apparent distress. CARDIOVASCULAR: Regular rate and rhythm without murmurs, gallops, or rubs. RESPIRATORY: Clear to auscultation. Breath sounds equal bilaterally. No wheezes , rales, or rhonchi. GASTROINTESTINAL: Abdomen soft, non-tender, nondistended. Normal active bowel sounds MUSCULOSKELETAL: Extremities without clubbing, cyanosis, or edema. NEURO: Alert & Oriented x4 to person, place, time, situation. Moves all ext x4 Laboratory Laboratory Tests Test 01/17/18 10:17 01/17/18 17:38 01/18/18 06:09 Nasal Screen MRSA (PCR) MRSA NOT DETECTED Hemoglobin 7.1 GM/DL 9.4 GM/DL White Blood Count 9.5 TH/MM3 Red Blood Count 3.06 MIL/MM3 Hematocrit 26.9 % Mean Corpuscular Volume 87.9 FL Mean Corpuscular Hemoglobin 30.9 PG Mean Corpuscular Hemoglobin Concent 35.1 % Red Cell Distribution Width 14.8 % Platelet Count 148 TH/MM3 Mean Platelet Volume 7.8 FL Blood Urea Nitrogen 10 MG/DL Creatinine 0.56 MG/DL Random Glucose 84 MG/DL Total Protein 5.4 GM/DL Albumin 2.7 GM/DL Calcium Level 8.0 MG/DL Phosphorus Level 2.9 MG/DL Magnesium Level 2.1 MG/DL Alkaline Phosphatase 78 U/L Aspartate Amino Transf (AST/SGOT) 13 U/L Alanine Aminotransferase (ALT/SGPT) 19 U/L Total Bilirubin 0.9 MG/DL Sodium Level 141 MEQ/L Potassium Level 3.8 MEQ/L Chloride Level 107 MEQ/L Carbon Dioxide Level 24.4 MEQ/L Anion Gap 10 MEQ/L Estimat Glomerular Filtration Rate 143 ML/MIN Lactic Acid Level 0.7 mmol/L Total Creatine Kinase 112 U/L Thyroid Stimulating Hormone 3rd Gen 3.090 uIU/ML Imaging Last Impressions Abdominal Angiography 01/16/18 0000 Signed Impressions: CONCLUSION: 1. Angiography demonstrated active hemorrhage in the region of the hepatic f lexure. The small vessel feeding the site of hemorrhage was embolized with a sm all amount of Gelfoam and a 2 mm embolization coil. The patient tolerated the p rocedure well. Chest X-Ray 01/15/18 1015 Signed Impressions: CONCLUSION: No acute cardiopulmonary findings. GI Bleed Scan Nuclear Medicine 01/15/18 0000 Signed Impressions: CONCLUSION: 1. Negative GI bleeding study. Assessment and Plan Problem List: (1) Syncope, vasovagal ICD Codes: R55 - Syncope and collapse Plan: unclear etiology, ? vagal vs hypotensive, vs bradycardic; no clear etiology by echo; he declined loop recorder. Assessment and Plan will sign off pls call with questions, [facility] Frankie Virk MD Jan 18, 2018 09:28
--- NOTE | 2018-01-18 14:44 | PD.CAR.PN ---
CVT Progress Note Subjective/Hospital Course: 01/17/2018 Patient evaluated full consult dictated I discussed the care with the and the patient and my recommendations are as follows Patient needs repeat colonoscopy now that we have nowhere to look If patient only has an AV malformation and he does not rebleed he can go home in next few days If he rebleeds while in the hospital he can have more/repeated embolization in the area If patient goes home he has about 30% chance to rebleed again from this at which point he can also have re-embolization or if he bleeds more he may need right hemicolectomy On the other hand if patient has a tumor in this area then he needs surgery at this admission in form of extended right hemicolectomy As far as his abdominal aortic aneurysm concerned right now this is 4.9 cm and although it grew fast in last year or so this is not the primary concern and risk of rupture is low but not 0%. In the future depending on how patient does with his colon problem he will be a candidate for endovascular aortic aneurysm repair 01/18/2018 Patient is hemodynamically stable His hemoglobin was slightly trending down over the few days as a result of rehydration and perhaps some minor ooze after embolization of the AVM malformation in the area of hepatic flexure. Today I discussed care with the patient and explained again what was said yesterday about colonoscopy and possible further need for interventions surgical or otherwise or possibly only observation depending on the results of colonoscopy and further behavior off the bleed This afternoon I was summoned by the nurse because of was a rate about the care patient received. She proceeded to criticize various physicians including the machinist mechanic, the javascript programmer and sliver former team stating that nobody is talking to anybody and she does not know what is going on. This is contrary to my observation and personal practice which is that physicians have nurses have been very very patient when explaining things and have taken verbal abuse and stride While patient is a very nice gentleman in order for me to provide excellent care to patient whether this is a beauty consultant or surgeon, I have to have good report with the patient and the family While have excellent report with the gentleman himself the abusive and verbally braiding behavior of his is impairing the care as well as communication Therefore I regretfully have to resign as the physician taking care of the patient. Till new surgeon is consulted I will be available for any immediate emergencies I have discussed this with it risk advisor Nancy Ramon Objective: Vital Signs Date Time Temp Pulse Resp B/P (MAP) Pulse Ox O2 Delivery O2 Flow Rate FiO2 01/18/18 12:00 55 01/18/18 12:00 98.2 55 20 125/58 (80) 100 01/18/18 10:00 70 01/18/18 08:00 98.2 77 16 123/58 (79) 99 01/18/18 08:00 77 01/18/18 07:00 100 Nasal Cannula 2.00 01/18/18 06:00 70 01/18/18 06:00 70 16 118/59 (78) 98 01/18/18 05:00 62 16 138/65 (89) 100 01/18/18 04:00 58 01/18/18 04:00 57 15 119/56 (77) 99 01/18/18 03:00 65 15 128/59 (82) 97 01/18/18 02:00 59 01/18/18 02:00 61 16 139/63 (88) 99 01/18/18 01:31 98.5 68 19 131/70 99 01/18/18 01:26 98.4 68 19 122/67 98 01/18/18 01:21 98.9 73 18 118/56 96 01/18/18 01:00 99.0 65 18 118/56 (76) 98 01/18/18 00:00 62 01/18/18 00:00 99.0 62 18 124/58 (80) 100 01/17/18 23:00 76 21 123/58 (79) 100 01/17/18 22:10 98.6 78 26 133/61 95 01/17/18 22:05 99.0 82 17 130/61 98 01/17/18 22:00 74 01/17/18 22:00 74 26 130/61 (84) 99 01/17/18 22:00 99.0 80 18 133/60 98 01/17/18 21:00 81 22 135/63 (87) 97 01/17/18 20:00 77 23 141/67 (91) 97 01/17/18 20:00 62 01/17/18 20:00 81 01/17/18 19:00 97 Nasal Cannula 2.00 01/17/18 19:00 98.4 81 22 135/63 (87) 97 01/17/18 18:00 77 01/17/18 18:00 76 18 137/63 (87) 98 01/17/18 17:00 59 20 132/61 (84) 99 01/17/18 16:00 64 01/17/18 16:00 98.0 64 20 126/60 (82) 100 01/17/18 15:00 66 16 120/58 (78) 100 Labs: Laboratory Tests Test 01/18/18 06:09 White Blood Count 9.5 TH/MM3 (4.0-11.0) Red Blood Count 3.06 MIL/MM3 (4.50-5.90) Hemoglobin 9.4 GM/DL (13.0-17.0) Hematocrit 26.9 % (39.0-51.0) Mean Corpuscular Volume 87.9 FL (80.0-100.0) Mean Corpuscular Hemoglobin 30.9 PG (27.0-34.0) Mean Corpuscular Hemoglobin Concent 35.1 % (32.0-36.0) Red Cell Distribution Width 14.8 % (11.6-17.2) Platelet Count 148 TH/MM3 (150-450) Mean Platelet Volume 7.8 FL (7.0-11.0) Blood Urea Nitrogen 10 MG/DL (7-18) Creatinine 0.56 MG/DL (0.60-1.30) Random Glucose 84 MG/DL (74-106) Total Protein 5.4 GM/DL (6.4-8.2) Albumin 2.7 GM/DL (3.4-5.0) Calcium Level 8.0 MG/DL (8.5-10.1) Phosphorus Level 2.9 MG/DL (2.5-4.9) Magnesium Level 2.1 MG/DL (1.5-2.5) Alkaline Phosphatase 78 U/L (45-117) Aspartate Amino Transf (AST/SGOT) 13 U/L (15-37) Alanine Aminotransferase (ALT/SGPT) 19 U/L (12-78) Total Bilirubin 0.9 MG/DL (0.2-1.0) Sodium Level 141 MEQ/L (136-145) Potassium Level 3.8 MEQ/L (3.5-5.1) Chloride Level 107 MEQ/L (98-107) Carbon Dioxide Level 24.4 MEQ/L (21.0-32.0) Anion Gap 10 MEQ/L (5-15) Estimat Glomerular Filtration Rate 143 ML/MIN (>89) Lactic Acid Level 0.7 mmol/L (0.4-2.0) Total Creatine Kinase 112 U/L (39-308) Thyroid Stimulating Hormone 3rd Gen 3.090 uIU/ML (0.358-3.740) Result Diagram: 01/18/1860801/18/18608 (1) Syncope, vasovagal Plan: unclear etiology, ? vagal vs hypotensive, vs bradycardic; no clear etiology by echo; he declined loop recorder. Norma Bay MD Jan 18, 2018 14:44
[2018-01-18] MEDS ORDERED: PEG (High)/E-LYTE SOLN 4000 ML BTL PO ONE (16:30)
--- NOTE | 2018-01-18 16:47 | HHI.PR ---
Subjective Remarks seen with supportive at bedside patient denies any abdominal pain,. nausea or vomiting, tolerated clear liquids + stoos- soft, " little blood" feels stronger- patient received 2 units RBC overnight telemetry- in sinus rhythm good sats at room air up and ambulated with no difficulty- no dizziness Objective Vitals Vital Signs Date Time Temp Pulse Resp B/P (MAP) Pulse Ox O2 Delivery O2 Flow Rate FiO2 01/18/18 12:00 55 01/18/18 12:00 98.2 55 20 125/58 (80) 100 01/18/18 10:00 70 01/18/18 08:00 98.2 77 16 123/58 (79) 99 01/18/18 08:00 77 01/18/18 07:00 100 Nasal Cannula 2.00 01/18/18 06:00 70 01/18/18 06:00 70 16 118/59 (78) 98 01/18/18 05:00 62 16 138/65 (89) 100 01/18/18 04:00 58 01/18/18 04:00 57 15 119/56 (77) 99 01/18/18 03:00 65 15 128/59 (82) 97 01/18/18 02:00 59 01/18/18 02:00 61 16 139/63 (88) 99 01/18/18 01:31 98.5 68 19 131/70 99 01/18/18 01:26 98.4 68 19 122/67 98 01/18/18 01:21 98.9 73 18 118/56 96 01/18/18 01:00 99.0 65 18 118/56 (76) 98 01/18/18 00:00 62 01/18/18 00:00 99.0 62 18 124/58 (80) 100 01/17/18 23:00 76 21 123/58 (79) 100 01/17/18 22:10 98.6 78 26 133/61 95 01/17/18 22:05 99.0 82 17 130/61 98 01/17/18 22:00 74 01/17/18 22:00 74 26 130/61 (84) 99 01/17/18 22:00 99.0 80 18 133/60 98 01/17/18 21:00 81 22 135/63 (87) 97 01/17/18 20:00 77 23 141/67 (91) 97 01/17/18 20:00 62 01/17/18 20:00 81 01/17/18 19:00 97 Nasal Cannula 2.00 01/17/18 19:00 98.4 81 22 135/63 (87) 97 01/17/18 18:00 77 01/17/18 18:00 76 18 137/63 (87) 98 01/17/18 17:00 59 20 132/61 (84) 99 I/O 01/17/18 01/17/18 01/17/18 01/18/18 01/18/18 01/18/18 07:00 15:00 23:00 07:00 15:00 23:00 Intake Total 720 ml 1620 ml Output Total 750 ml 500 ml 750 ml Balance -750 ml 220 ml 870 ml Intake Oral 720 ml 800 ml Packed Cells 800 ml Blood Product IV Normal Saline Flush 20 ml Output Urine Total 750 ml 500 ml 750 ml # Voids 2 4 # Bowel Movements 0 0 0 Result Diagram: 01/18/18 0609 01/18/18 0609 Imaging Last Impressions Abdominal Angiography 01/16/18 0000 Signed Impressions: CONCLUSION: 1. Angiography demonstrated active hemorrhage in the region of the hepatic f lexure. The small vessel feeding the site of hemorrhage was embolized with a sm all amount of Gelfoam and a 2 mm embolization coil. The patient tolerated the p rocedure well. Chest X-Ray 01/15/18 1015 Signed Impressions: CONCLUSION: No acute cardiopulmonary findings. GI Bleed Scan Nuclear Medicine 01/15/18 0000 Signed Impressions: CONCLUSION: 1. Negative GI bleeding study. Objective Remarks awake and alert, no acute distress anicteric no carotid buit lungs- no rales regular rhythm, soft 3/6 systolic murmur left sternal border abdomen-s soft, good bowel sounds extremities no edema neuro exam- non focal Procedures Colonoscopy Embolization of SMA with Gelfoam and 2 mm coil by interventional radiology A/P Problem List: (1) Syncope, vasovagal ICD Code: R55 - Syncope and collapse (2) AAA (abdominal aortic aneurysm) ICD Code: I71.4 - Abdominal aortic aneurysm, without rupture (3) Rectal bleed ICD Code: K62.5 - Hemorrhage of anus and rectum Assessment and Plan 72 years old male admitted for syncopal episode- likely from GIB Status post embolization of the SMA with Gelfoam/2 mm coils Acute anemia Lower GI bleed Descending sigmoid diverticulosis Rectal polyp status post cold biopsy by Dr. Stevens 01/16 Internal and external hemorrhoids History of peptic ulcer disease Hypoalbuminemia Low total protein Status post embolization of the SMA with Gelfoam/2 mm coils by IR 01/16 received 2 units RBC overnight . H and H up. Rpeat CBC in am 01/15- negative bleeding scan 01/16 - S/P EGD- gastritis S/P colonosocpy- diverticuloses with polyp removal , internal and external hemorrhoids 01/16- hemorrhage noted on hepatic flexure S/P embolization with gelfoam of the ssmall vessel Clear liquid diet ordered- tolerating . NPO post midnight for repeat colonosocpy again in am Pantoprazole for GI prophylaxis. Docusate sodium/senna 1 tablet twice daily for bowel regimen History of penile implant 3 Status post prostatectomy No Mcmanus indicated Endo: Sliding scale insulin with Accu-Cheks to maintain euglycemia TSH normal Renal: Creatinine currently within normal limits Monitor urine output Accurate I's and O's Depressive disorder NOS Acetaminophen 600 mg p.o. every 6 hours as needed fever Hydrocodone/acetaminophen 5/325 one tablet every 4 hours as needed pain 1 through 5 Morphine sulfate 2 mg IV every 2 hours as needed pain 6-10 Continue home medication for depression on citalopram 10 milligrams daily CV: Essential hypertension Hyperlipidemia 4.8 cm AAA -evaluated previously by Dr. Bay 01/11 Holding home medication amlodipine 10 mg daily for hypertension Home medication atorvastatin 80 mg at night along with fish oil/cholecalciferol 1200/1000 1 tablet daily Cardiology consulted- seen by Dr Virk- and I assured pt's that they are in the same group for loop recorder evaluation COPD with ongoing tobaccoism Nasal cannula to maintain saturations greater than or equal to 92% Incentive spirometry while awake Albuterol/ipratropium aerosols every 4 hours with albuterol aerosols every 2 hours as needed for dyspnea Patient is on albuterol inhaler at home Nicotine patch 21 mg daily. Self-evaluation cessation booklet will be provided GI: ID: Monitor for signs and symptomatology of infection MSK: L2 sclerotic bone lesion Likely outpatient follow-up FEN: Replace electrolytes as clinically indicated Access -Utilize peripheral IV. Central line if indicated Prophylax -GI -pantoprazole -DVT -SCD Jackson Garza MD Jan 18, 2018 16:47
--- NOTE | 2018-01-18 20:30 | HHI.GIFU ---
GI Follow-up Note Consult Follow-up Subjective: Late entry-patietn seen earlier today and in pm.Was scheduled for placement of loop recorder, patient refused for now.Discussed with surgery and IR , we will repeat colonoscopy with special attention at hepatic flexure.Denies nausea, vomiting, small amount old blood in am. Cardiac, neuro w- up in progress . Objective: PHYSICAL EXAMINATION: Vitals signs stable No fever Vital Signs Date Time Temp Pulse Resp B/P (MAP) Pulse Ox O2 Delivery O2 Flow Rate FiO2 01/18/18 18:00 64 01/18/18 16:00 69 01/18/18 16:00 98.9 69 22 134/63 (86) 99 01/18/18 14:00 68 HEENT: Pupils round and reactive to light; normocephalic; atraumatic; no jaundice. Throat is clear. NECK: Neck is supple, no JVD, no lymphadenopathy. CHEST: Chest is clear to auscultation and percussion. CARDIAC: Regular rate and rhythm with no murmur gallop or rubs. ABDOMEN: Soft, distended, nontender; no hepatosplenomegaly; bowel sounds are present in all four quadrants. EXTREMITIES: No clubbing, cyanosis, or edema. SKIN: Normal; no rash; no jaundice. AIR HAMMER OPERATOR: No focal deficits; alert and oriented times three. Available Data (labs, X- Rays, Procedues) : Laboratory Tests Test 01/16/18 22:05 01/17/18 04:35 01/17/18 09:06 01/17/18 10:17 White Blood Count 11.5 TH/MM3 9.6 TH/MM3 Red Blood Count 2.87 MIL/MM3 2.53 MIL/MM3 Hemoglobin 8.9 GM/DL 8.1 GM/DL Hematocrit 26.2 % 23.1 % Mean Corpuscular Volume 91.3 FL 91.3 FL Mean Corpuscular Hemoglobin 31.1 PG 32.1 PG Mean Corpuscular Hemoglobin Concent 34.0 % 35.1 % Red Cell Distribution Width 13.5 % 13.4 % Platelet Count 170 TH/MM3 167 TH/MM3 Mean Platelet Volume 7.7 FL 7.4 FL Neutrophils (%) (Auto) 87.3 % Lymphocytes (%) (Auto) 8.6 % Monocytes (%) (Auto) 3.8 % Eosinophils (%) (Auto) 0.1 % Basophils (%) (Auto) 0.2 % Neutrophils # (Auto) 10.1 TH/MM3 Lymphocytes # (Auto) 1.0 TH/MM3 Monocytes # (Auto) 0.4 TH/MM3 Eosinophils # (Auto) 0.0 TH/MM3 Basophils # (Auto) 0.0 TH/MM3 CBC Comment DIFF FINAL Differential Comment Lactic Acid Level 1.1 mmol/L Carcinoembryonic Antigen 2.7 NG/ML Nasal Screen MRSA (PCR) MRSA NOT DETECTED Test 01/17/18 17:38 01/18/18 06:09 Hemoglobin 7.1 GM/DL 9.4 GM/DL White Blood Count 9.5 TH/MM3 Red Blood Count 3.06 MIL/MM3 Hematocrit 26.9 % Mean Corpuscular Volume 87.9 FL Mean Corpuscular Hemoglobin 30.9 PG Mean Corpuscular Hemoglobin Concent 35.1 % Red Cell Distribution Width 14.8 % Platelet Count 148 TH/MM3 Mean Platelet Volume 7.8 FL Blood Urea Nitrogen 10 MG/DL Creatinine 0.56 MG/DL Random Glucose 84 MG/DL Total Protein 5.4 GM/DL Albumin 2.7 GM/DL Calcium Level 8.0 MG/DL Phosphorus Level 2.9 MG/DL Magnesium Level 2.1 MG/DL Alkaline Phosphatase 78 U/L Aspartate Amino Transf (AST/SGOT) 13 U/L Alanine Aminotransferase (ALT/SGPT) 19 U/L Total Bilirubin 0.9 MG/DL Sodium Level 141 MEQ/L Potassium Level 3.8 MEQ/L Chloride Level 107 MEQ/L Carbon Dioxide Level 24.4 MEQ/L Anion Gap 10 MEQ/L Estimat Glomerular Filtration Rate 143 ML/MIN Lactic Acid Level 0.7 mmol/L Total Creatine Kinase 112 U/L Thyroid Stimulating Hormone 3rd Gen 3.090 uIU/ML ASSESSMENT/PLAN: gi bleeding secondary AVM/mass? hepatic flexure -s/p successful embolization severe diverticulosis possible source of bleeding symptomatic anemia secondary gi bleeding-s/p prbc -improved syncopal episodes -work-up in progress, most likely vagal reaction AAA-followed by vascular surgery Recommendations Repeat colonoscopy in am with close evaluating of hepatic flexure supportive care vascular surgery /cardiac fu transfuse prn to keep hb more than 8 if recurrent bleeding reconsult IR for repeat embolization, reconsult surgery It was a pleasure seeing Sedrick Licea Sr. Thank you for this consult. Entered by: Briana Contreras MD Jan 18, 2018 20:30
[2018-01-18] MEDS: REMOVE OLD PATCH T-DERMAL SCH (21:00)
[2018-01-18] MEDS: NICOTINE 21 MG/24 HR PATCH T-DERMAL SCH (21:28)
[2018-01-18] MEDS: ATORVASTATIN 80 MG TAB PO SCH (21:28)
[2018-01-18 21:59] LABS: HEMATOCRIT 29.4 % (39.0-51.0); HEMOGLOBIN 10.2 GM/DL (13.0-17.0)
[2018-01-19] VITALS (12 sets, daily range): BP systolic 133–173; BP diastolic 60–72; PULSE 61–85; RESP 20–24; TEMP 98.2–99.2; O2SAT 93–99
[2018-01-19] MEDS: SODIUM CHLOR 0.9% 1000 ML INJ 1,000 ML IV SCH (00:22)
[2018-01-19 01:20] LABS: HEMATOCRIT 26.4 % (39.0-51.0); HEMOGLOBIN 9.3 GM/DL (13.0-17.0)
[2018-01-19] MEDS: RESP: ALBUTEROL 2.5 MG/IPRATROPIUM 0.5 MG NEB (SCH) NEB ×4 (03:49→09:10)
[2018-01-19] MEDS: CHLORHEXIDINE GLUCONATE 2 % 1 PACK (2 CLOTHS) TOP SCH ×2 (04:00→23:57)
[2018-01-19 05:08] LABS: HEMATOCRIT 25.9 % (39.0-51.0); HEMOGLOBIN 9.2 GM/DL (13.0-17.0)
[2018-01-19] MEDS: OXYBUTYNIN CHLORIDE 5 MG TAB PO SCH ×2 (08:40→21:05)
[2018-01-19] MEDS: CITALOPRAM HYDROBROMIDE 20 MG TAB PO SCH (08:40)
[2018-01-19] MEDS: SODIUM CHLORIDE 0.9% FLUSH 10 ML FLUSH IV FLUSH SCH ×2 (08:40→20:43)
[2018-01-19] MEDS: LACTOBACILLUS ACIDOPHILUS TAB PO SCH (08:40)
[2018-01-19] MEDS: PANTOPRAZOLE SOD 40 MG DELAYED RELEASE TAB PO SCH (08:41)
[2018-01-19] MEDS: DOCUSATE SODIUM 50 MG/SENNA 8.6 MG TAB PO SCH ×2 (08:41→21:00)
--- NOTE | 2018-01-19 09:57 | GIPROC ---
[facility] [address] [facility]. [facility] [place], [address] COLONOSCOPY PROCEDURE REPORT EXAM DATE: 01/19/2018 PATIENT NAME: Sedrick Licea MR #: [id number] BIRTHDATE: 1945 ENDOSCOPIST: Briana Stevens MD ORDER #: [id number] CLAMP OPERATOR: Maine Dickerson and Francine Johnson STATUS: inpatient INDICATIONS: The patient is a 72 yr old male here for a colonoscopy due to gi bleeding, abnormal angogram, possible mass, avm hepatic flexure PROCEDURE PERFORMED: Colonoscopy with biopsy MEDICATIONS: None and Per Anesthesia. PREP QUALITY: good PREP TYPE:Other: ESTIMATED BLOOD LOSS: None CONSENT: The patient understands the risks and benefits of the procedure and understands that these risks include, but are not limited to: sedation, allergic reaction, infection, perforation and/or bleeding. Alternative means of evaluation and treatment include, among others: physical exam, x-rays, and/or surgical intervention. The patient elects to proceed with this endoscopic procedure. medical equipment was checked for proper function. Hand hygiene and appropriate measures for infection prevention was taken. After the risks, benefits and alternatives of the procedure were thoroughly explained, Informed consent was verified, confirmed and timeout was successfully executed by the treatment team. A digital exam revealed external hemorrhoids The Pentax [id number] endoscope was introduced through the anus and advanced to the cecum, which was identified by both the appendix and ileocecal valve. The instrument was then slowly withdrawn as the colon was fully examined. COLON FINDINGS: Severe diverticulosis sigmoid,descending diverticlum hepatic flexure, ulcer most likely site of embolisation, biopsy, no mass or other pathology noted multiple passes done in this area. Retroflexed views revealed internal hemorrhoids and Retroflexed views revealed small internal hemorrhoids The scope was then completely withdrawn from the patient and the procedure terminated. PROCEDURE WITHDRAWAL TIME:8minutes ADVERSE EVENTS: There were no complications. IMPRESSIONS: 1. Severe diverticulosis sigmoid,descending diverticlum hepatic flexure, ulcer most likely site of embolisation, biopsy, no mass or other pathology noted multiple passes done in this area 2. Retroflexed views revealed internal hemorrhoids 3. Retroflexed views revealed small internal hemorrhoids 4. Revealed external hemorrhoids RECOMMENDATIONS: 1. Await biopsy results. Biopsy results will not be ready for 7-10 days. If you don't hear from us in two weeks, call our office for results. 2. Benefiber 2 tsp daily 3. Probiotics from any [employer] or [employer] food store 4. Yearly rectal exams 5. Resume diet if recurrent bleeding repeat embolisation and reconsult vascular surgery RECALL: Return 3 months Colonoscopy to evalute healing of ulcer -most likely postembolisation ulcer Briana Stevens MD eSigned: Briana Stevens MD 01/19/2018 9:56 AM cc: PATIENT NAME: Sedrick Licea MR#: [id number]
[2018-01-19] MEDS ORDERED: GLYCOPYRROLATE 1 MG/5 ML SYRINGE IV PUSH ONE (12:00)
[2018-01-19] MEDS ORDERED: LIDOCAINE HCL 1% PF 5 ML SYRINGE OTHER ONE (12:00)
[2018-01-19] MEDS ORDERED: ePHEDrine/NS 25 MG/5 ML SYRINGE IV ONE (12:00)
[2018-01-19] MEDS ORDERED: PHENYLEPH/NS 1000 MCG/10 ML SYR IV ONE (12:00)
[2018-01-19] MEDS ORDERED: PROPOFOL 200 MG/20 ML AMP IV ONE (12:00)
--- NOTE | 2018-01-19 14:22 | HHI.PR ---
Subjective Remarks back from colonoscopy- reviewed report with him- no blood, or old blood seen on mucosa, clean based ulcer noted on hepatic flexure- embolization site this am- liquid clear stools from the prep- no blood at all per staff nurse no abdominal pain ate lunch 100%, no nausea or vomiting Objective Vitals Vital Signs Date Time Temp Pulse Resp B/P (MAP) Pulse Ox O2 Delivery O2 Flow Rate FiO2 01/19/18 14:00 79 01/19/18 12:00 98.4 80 24 149/66 (93) 99 01/19/18 12:00 77 01/19/18 10:30 79 01/19/18 10:15 74 14 126/66 (86) 95 01/19/18 10:00 79 22 122/58 (79) 92 Nasal Cannula 2 01/19/18 09:52 97.4 80 12 107/53 (71) 90 01/19/18 09:00 74 16 168/75 (106) 90 01/19/18 08:35 97.7 79 16 175/78 (110) 94 01/19/18 08:00 98.7 70 20 173/69 (103) 97 01/19/18 08:00 85 01/19/18 07:00 96 Room Air 01/19/18 06:00 63 01/19/18 04:00 66 01/19/18 04:00 98.5 66 20 147/65 (92) 93 01/19/18 02:00 68 01/19/18 00:00 66 01/19/18 00:00 98.2 66 22 156/72 (100) 93 01/18/18 22:00 68 01/18/18 20:00 68 01/18/18 20:00 97.7 68 21 133/63 (86) 100 01/18/18 19:00 100 01/18/18 18:00 64 01/18/18 16:00 69 01/18/18 16:00 98.9 69 22 134/63 (86) 99 I/O 01/18/18 01/18/18 01/18/18 01/19/18 01/19/18 01/19/18 07:00 15:00 23:00 07:00 15:00 23:00 Intake Total 1620 ml 800 ml 3500 ml 200 ml Output Total 750 ml 850 ml 1000 ml 150 ml Balance 870 ml -50 ml 2500 ml 50 ml Intake Oral 800 ml 800 ml 3500 ml Packed Cells 800 ml Blood Product IV Normal Saline Flush 20 ml Other 200 ml Output Urine Total 750 ml 850 ml 1000 ml 150 ml # Voids 4 2 2 1 # Bowel Movements 0 1 7 Result Diagram: 01/19/18 0403 01/18/18 0609 Imaging Last Impressions Abdominal Angiography 01/16/18 0000 Signed Impressions: CONCLUSION: 1. Angiography demonstrated active hemorrhage in the region of the hepatic f lexure. The small vessel feeding the site of hemorrhage was embolized with a sm all amount of Gelfoam and a 2 mm embolization coil. The patient tolerated the p rocedure well. Chest X-Ray 01/15/18 1015 Signed Impressions: CONCLUSION: No acute cardiopulmonary findings. GI Bleed Scan Nuclear Medicine 01/15/18 0000 Signed Impressions: CONCLUSION: 1. Negative GI bleeding study. Objective Remarks awake and alert, no acute distress anicteric no carotid buit lungs- no rales regular rhythm, soft 3/6 systolic murmur left sternal border abdomen-s soft, good bowel sounds, non tender extremities no edema neuro exam- non focal Procedures Colonoscopy Embolization of SMA with Gelfoam and 2 mm coil by interventional radiology A/P Problem List: (1) Syncope, vasovagal ICD Code: R55 - Syncope and collapse (2) AAA (abdominal aortic aneurysm) ICD Code: I71.4 - Abdominal aortic aneurysm, without rupture (3) Rectal bleed ICD Code: K62.5 - Hemorrhage of anus and rectum Assessment and Plan 72 years old male admitted for syncopal episode- likely from GIB Status post embolization of the SMA with Gelfoam/2 mm coils Acute anemia due to Lower GI bleed- likely diverticular bleed and small hepatic flexure ulcer from embolization site Status post embolization of the SMA with Gelfoam/2 mm coils by IR 01/16 S/P repeat colonosocpy this am 01/19- small ulcer hepatic flexure area- embolization site, diverticuloses, no active bleeding or blood noted, hemorrhoids Descending sigmoid diverticulosis Rectal polyp status post cold biopsy by Dr. Stevens 01/16 Internal and external hemorrhoids History of peptic ulcer disease Hypoalbuminemia Low total protein received 2 units 01/17 RBC . H and H stable 01/15- negative bleeding scan 01/16 - S/P EGD- gastritis S/P colonosocpy- diverticuloses with polyp removal , internal and external hemorrhoids 01/16- hemorrhage noted on hepatic flexure S/P embolization with gelfoam of the ssmall vessel continue on Pantoprazole po daily Docusate sodium/senna 1 tablet twice daily for bowel regimen H and h stable- states patient has brown stools d/w Dr. Stevens- we will consult CRS for second opinion History of penile implant 3 Status post prostatectomy - voiding well Endo: Sliding scale insulin with Accu-Cheks to maintain euglycemia TSH normal Renal: Creatinine currently within normal limits Monitor urine output Accurate I's and O's Depressive disorder NOS Acetaminophen 600 mg p.o. every 6 hours as needed fever Hydrocodone/acetaminophen 5/325 one tablet every 4 hours as needed pain 1 through 5 Morphine sulfate 2 mg IV every 2 hours as needed pain 6-10 Continue home medication for depression on citalopram 10 milligrams daily CV: Essential hypertension Hyperlipidemia 4.8 cm AAA -evaluated previously by Dr. Bay 01/11 Holding home medication amlodipine 10 mg daily for hypertension Home medication atorvastatin 80 mg at night along with fish oil/cholecalciferol 1200/1000 1 tablet daily Cardiology consulted- seen by Dr Virk- and I assured pt's that they are in the same group for loop recorder evaluation - per report she refused COPD with ongoing tobaccoism- in remission Nasal cannula to maintain saturations greater than or equal to 92% Incentive spirometry while awake Albuterol/ipratropium aerosols every 4 hours with albuterol aerosols every 2 hours as needed for dyspnea Patient is on albuterol inhaler at home Nicotine patch 21 mg daily. Self-evaluation cessation booklet will be provided MSK: L2 sclerotic bone lesion Likely outpatient follow-up FEN: Prophylax -GI -pantoprazole -DVT -SCD - patient up and ambulating transfer to medical floor DC planning- will ask CM to assist Jackson Garza MD Jan 19, 2018 14:22
[2018-01-19] MEDS ORDERED: ALBUTEROL SULFATE 90 MCG/ACT HFA 8 GM INHALER INH PRN (14:30)
--- NOTE | 2018-01-19 16:29 | HHI.GIFU ---
GI Follow-up Note Consult Follow-up Discussed with and patient ,Alicia Gautamer from patient liaison department was also present Discussed with .Results of colonoscopy, previous egd/ colon, bleeding scan and angiogram discussed .Lengthy discussion with , all her questions answered to the best of my ability . No obvious mass or pathology noted other than severe diverticulosis and an ulcer at hepatic flexure at the site of embolization, to explain patient gi bleeding .If rebleeding we will reconsult IR for embolization and reconsult surgery . Most likely source of bleeding vessel at hepatic flexure avm vs diverticulum vs Dieulafoy lesion ?, no mass seen on both colonoscopies .Patient was seen by vascular surgery, had angiogram -no indication of aortoenteric fistulae , they felt that bleeding not related to large AAA.-please see vascular surgery notes Capsule endoscopy op -we can order it , not available in hospital . unhappy with situation,nervous about recurrent bleeding . I suggested second opinion in terms of pinpointing source of bleeding ,course of action in case of recurrent bleeding . She agreed on -we will consult colorectal surgery as a second opinion. Discussed with will place consult . Interim we will keep in the unit for observation, close monitoring of cbc syncopal work-up in progress will fu in am It was a pleasure seeing Sedrick Licea Sr. Thank you for this consult. Entered by: Briana Contreras MD Jan 19, 2018 16:29
[2018-01-19 17:59] LABS: HEMOGLOBIN 9.5 GM/DL (13.0-17.0)
[2018-01-19] MEDS: ALBUTEROL SULFATE 90 MCG/ACT HFA 8 GM INHALER INH SCH ×2 (18:00→23:57)
[2018-01-19 18:26] LABS: % SATURATION IRON PROFILE 8.3 % (20-50); IRON (FE) 20 MCG/DL (65-175); TOTAL IRON BINDING CAPACITY 242 MCG/DL (250-450)
[2018-01-19 18:29] LABS: FERRITIN 110 NG/ML (26-388)
[2018-01-19] MEDS: REMOVE OLD PATCH T-DERMAL SCH (21:00)
[2018-01-19] MEDS: ATORVASTATIN 80 MG TAB PO SCH (21:05)
[2018-01-19] MEDS: NICOTINE 21 MG/24 HR PATCH T-DERMAL SCH (21:06)
[2018-01-20] VITALS (10 sets, daily range): BP systolic 104–149; BP diastolic 55–70; PULSE 60–68; RESP 14–20; TEMP 97.6–98.6; O2SAT 92–94
[2018-01-20] MEDS: ACETAMINOPHEN/HYDROcodone 325 MG/5 MG TAB PO PRN ×2 (00:03→04:52)
[2018-01-20] MEDS: ALBUTEROL SULFATE 90 MCG/ACT HFA 8 GM INHALER INH SCH ×4 (04:53→23:30)
[2018-01-20 04:57] LABS: HEMATOCRIT 27.8 % (39.0-51.0); HEMOGLOBIN 9.6 GM/DL (13.0-17.0)
[2018-01-20] MEDS ORDERED: IRON SUCROSE INJ 200 MG in SODIUM CHLORIDE 0.9% INJ 100 ML IV ONE (08:00)
--- NOTE | 2018-01-20 08:25 | HHI.PR ---
Subjective Remarks tolerated po well overnight no further GI bleded- patient complains of constipation no nausea or vomiing, no abdominal pain opatient already up on side of the bed- checking facebook Objective Vitals Vital Signs Date Time Temp Pulse Resp B/P (MAP) Pulse Ox O2 Delivery O2 Flow Rate FiO2 01/20/18 06:17 16 01/20/18 06:00 60 01/20/18 04:00 98.1 60 14 124/58 (80) 92 01/20/18 04:00 60 01/20/18 02:00 60 01/20/18 00:00 97.6 63 14 120/57 (78) 93 01/20/18 00:00 63 01/19/18 22:00 67 01/19/18 20:00 67 01/19/18 20:00 99.2 71 20 133/60 (84) 94 01/19/18 19:00 95 Room Air 01/19/18 18:00 67 01/19/18 16:00 98.3 64 22 160/70 (100) 99 01/19/18 16:00 61 01/19/18 14:00 79 01/19/18 12:00 98.4 80 24 149/66 (93) 99 01/19/18 12:00 77 01/19/18 10:30 79 01/19/18 10:15 74 14 126/66 (86) 95 01/19/18 10:00 79 22 122/58 (79) 92 Nasal Cannula 2 01/19/18 09:52 97.4 80 12 107/53 (71) 90 01/19/18 09:00 74 16 168/75 (106) 90 01/19/18 08:35 97.7 79 16 175/78 (110) 94 I/O 01/19/18 01/19/18 01/19/18 01/20/18 01/20/18 01/20/18 07:00 15:00 23:00 07:00 15:00 23:00 Intake Total 3500 ml 200 ml 420 ml Output Total 1000 ml 150 ml 500 ml 600 ml Balance 2500 ml 50 ml -80 ml -600 ml Intake Oral 3500 ml 420 ml Other 200 ml Output Urine Total 1000 ml 150 ml 500 ml 600 ml # Voids 2 1 # Bowel Movements 7 2 Result Diagram: 01/20/18 0418 01/18/18 0609 Imaging Last Impressions Abdominal Angiography 01/16/18 0000 Signed Impressions: CONCLUSION: 1. Angiography demonstrated active hemorrhage in the region of the hepatic f lexure. The small vessel feeding the site of hemorrhage was embolized with a sm all amount of Gelfoam and a 2 mm embolization coil. The patient tolerated the p rocedure well. Chest X-Ray 01/15/18 1015 Signed Impressions: CONCLUSION: No acute cardiopulmonary findings. GI Bleed Scan Nuclear Medicine 01/15/18 0000 Signed Impressions: CONCLUSION: 1. Negative GI bleeding study. Objective Remarks awake and alert, no acute distress anicteric no carotid buit lungs- no rales regular rhythm, soft 3/6 systolic murmur left sternal border abdomen-s soft, good bowel sounds, non tender extremities no edema neuro exam- non focal Procedures Colonoscopy Embolization of SMA with Gelfoam and 2 mm coil by interventional radiology A/P Problem List: (1) Syncope, vasovagal ICD Code: R55 - Syncope and collapse (2) AAA (abdominal aortic aneurysm) ICD Code: I71.4 - Abdominal aortic aneurysm, without rupture (3) Rectal bleed ICD Code: K62.5 - Hemorrhage of anus and rectum Assessment and Plan 72 years old male admitted for syncopal episode- likely from GIB Status post embolization of the SMA with Gelfoam/2 mm coils Acute anemia due to Lower GI bleed- likely diverticular bleed and from small hepatic flexure ulcer from embolization site Status post embolization of the SMA with Gelfoam/2 mm coils by IR 01/16 S/P repeat colonosocpy 01/19- small ulcer hepatic flexure area- embolization site , diverticuloses, no active bleeding or blood noted, hemorrhoids Rectal polyp status post cold biopsy by Dr. Stevens 01/16 Internal and external hemorrhoids History of peptic ulcer disease Low iron stores received 2 units 01/17 RBC . H and H stable 01/15- negative bleeding scan 01/16 - S/P EGD- gastritis S/P colonosocpy- diverticuloses with polyp removal , internal and external hemorrhoids 01/16- hemorrhage noted on hepatic flexure S/P embolization with gelfoam of the ssmall vessel continue on Pantoprazole po daily Docusate sodium/senna 1 tablet twice daily for bowel regimen H and h stable- states patient has brown stools will give IV Venofer 200 mg x 1 today 01/20 Advise patient on diet- avoid seeds, nuts 01/19 - d/w Dr. Stevens- we will consult CRS for second opinion 01/20 - I spoke with Dr. Cain on phone and placed consult History of penile implant 3 Status post prostatectomy - voiding well Endo: Sliding scale insulin with Accu-Cheks to maintain euglycemia TSH normal Renal: Creatinine currently within normal limits Monitor urine output Accurate I's and O's Depressive disorder NOS Acetaminophen 600 mg p.o. every 6 hours as needed fever Hydrocodone/acetaminophen 5/325 one tablet every 4 hours as needed pain 1 through 5 Continue home medication for depression on citalopram 10 milligrams daily CV: Essential hypertension Hyperlipidemia 4.8 cm AAA -evaluated previously by Dr. Bay 01/11 Holding home medication amlodipine 10 mg daily for hypertension- good BP readings Home medication atorvastatin 80 mg at night along with fish oil/cholecalciferol 1200/1000 1 tablet daily Cardiology consulted- seen by Dr Virk- and I assured pt's that they are in the same group for loop recorder evaluation - per report she refused COPD with ongoing tobaccoism- in remission Nasal cannula to maintain saturations greater than or equal to 92% Incentive spirometry while awake Albuterol/ipratropium aerosols every 4 hours with albuterol aerosols every 2 hours as needed for dyspnea Patient is on albuterol inhaler at home Nicotine patch 21 mg daily. Self-evaluation cessation booklet will be provided MSK: L2 sclerotic bone lesion Likely outpatient follow-up FEN: Prophylaxis -GI -pantoprazole -DVT -SCD - patient up and ambulating DC planning- will ask CM to assist Transfer to medical floor Jackson Garza MD Jan 20, 2018 08:25
[2018-01-20] MEDS: SODIUM CHLORIDE 0.9% FLUSH 10 ML FLUSH IV FLUSH SCH ×2 (09:00→23:30)
[2018-01-20] MEDS: OXYBUTYNIN CHLORIDE 5 MG TAB PO SCH ×2 (09:54→23:28)
[2018-01-20] MEDS: DOCUSATE SODIUM 50 MG/SENNA 8.6 MG TAB PO SCH ×3 (09:54→23:34)
[2018-01-20] MEDS: LACTOBACILLUS ACIDOPHILUS TAB PO SCH (09:54)
[2018-01-20] MEDS: PANTOPRAZOLE SOD 40 MG DELAYED RELEASE TAB PO SCH (09:54)
[2018-01-20] MEDS: CITALOPRAM HYDROBROMIDE 20 MG TAB PO SCH (09:55)
[2018-01-20] MEDS ORDERED: ACETAMINOPHEN/HYDROcodone 325 MG/5 MG TAB PO PRN (11:00)
--- NOTE | 2018-01-20 17:56 | HHI.GIFU ---
GI Follow-up Note Consult Follow-up Subjective: Patient laying in bed comfortably, no new complaints, no bleeding or abdominal pain Objective: PHYSICAL EXAMINATION: Vitals signs stable No fever HEENT: Pupils round and reactive to light; normocephalic; atraumatic; no jaundice. Throat is clear. NECK: Neck is supple, no JVD, no lymphadenopathy. CHEST: Chest is clear to auscultation and percussion. CARDIAC: Regular rate and rhythm with no murmur gallop or rubs. ABDOMEN: Soft, nondistended, nontender; no hepatosplenomegaly; bowel sounds are present in all four quadrants. EXTREMITIES: No clubbing, cyanosis, or edema. SKIN: Normal; no rash; no jaundice. DATA PROCESSING SUPERVISOR: No focal deficits; alert and oriented times three. Available Data (labs, X- Rays, Procedues) : Last Impressions Abdominal Angiography 01/16/18 0000 Signed Impressions: CONCLUSION: 1. Angiography demonstrated active hemorrhage in the region of the hepatic f lexure. The small vessel feeding the site of hemorrhage was embolized with a sm all amount of Gelfoam and a 2 mm embolization coil. The patient tolerated the p rocedure well. Chest X-Ray 01/15/18 1015 Signed Impressions: CONCLUSION: No acute cardiopulmonary findings. GI Bleed Scan Nuclear Medicine 01/15/18 0000 Signed Impressions: CONCLUSION: 1. Negative GI bleeding study. Laboratory Tests Test 01/18/18 20:58 01/19/18 00:55 01/19/18 04:03 01/19/18 17:25 Hemoglobin 10.2 GM/DL 9.3 GM/DL 9.2 GM/DL 9.5 GM/DL Hematocrit 29.4 % 26.4 % 25.9 % 27.0 % Iron Level 20 MCG/DL Total Iron Binding Capacity 242 MCG/DL Percent Iron Saturation 8.3 % Ferritin 110 NG/ML Test 01/20/18 04:18 Hemoglobin 9.6 GM/DL Hematocrit 27.8 % Allergies Coded Allergies Type Severity Reaction Last Updated Verified No Known Allergies 01/13/18 No Active Scripts Medications Dose Route/Sig Max Daily Dose Days Date Category Ventolin Hfa 18 GM Inh (Albuterol Sulfate) 90 Mcg/Act Aer 2 Puff INH Q4-6H PRN 01/13/18 Reported Fish Oil + D3 (Fish Oil-Cholecalciferol) 1,200-1,000 Mg-Unit Cap 1 Cap PO DAILY 01/13/18 Reported Aspirin Children's (Aspirin) 81 Mg Chew 81 Mg CHEW DAILY 01/13/18 Reported Amlodipine (Amlodipine Besylate) 10 Mg Tab 10 Mg PO DAILY 01/13/18 Reported Ditropan (Oxybutynin Chloride) 5 Mg Tab 5 Mg PO Q12HR 01/13/18 Reported Atorvastatin (Atorvastatin Calcium) 80 Mg Tab 80 Mg PO HS 01/13/18 Reported Citalopram (Citalopram Hydrobromide) 10 Mg Tab 10 Mg PO DAILY 01/13/18 Reported ASSESSMENT/PLAN: Seen and examined, no bleeding reported. Diet as tolerated. Opinion from Dr Cain awaited. GI will sign off, gi fu with Dr Stevens recommended after dc. Thank you It was a pleasure seeing Sedrick Licea Sr. Thank you for this consult. Entered by: Gato Bennett MD Jan 20, 2018 17:56
[2018-01-20] MEDS: ATORVASTATIN 80 MG TAB PO SCH (23:28)
[2018-01-20] MEDS: REMOVE OLD PATCH T-DERMAL SCH (23:29)
[2018-01-20] MEDS: NICOTINE 21 MG/24 HR PATCH T-DERMAL SCH (23:30)
[2018-01-21] VITALS (7 sets, daily range): BP systolic 124–151; BP diastolic 64–71; PULSE 65–75; RESP 16–20; TEMP 97.9–98.4; O2SAT 88–98
[2018-01-21] MEDS: CHLORHEXIDINE GLUCONATE 2 % 1 PACK (2 CLOTHS) TOP SCH (02:54)
[2018-01-21] MEDS: ALBUTEROL SULFATE 90 MCG/ACT HFA 8 GM INHALER INH SCH ×2 (05:10→12:00)
[2018-01-21 06:28] LABS: HEMATOCRIT 28.2 % (39.0-51.0); HEMOGLOBIN 9.7 GM/DL (13.0-17.0); MEAN CELL VOLUME 88.8 FL (80.0-100.0); MEAN CORPUSCULAR HEMOGLOBIN 30.5 PG (27.0-34.0); MEAN CORPUSCULAR HGB CONC 34.4 % (32.0-36.0); MEAN PLATELET VOLUME 7.4 FL (7.0-11.0); PLATELET COUNT 215 TH/MM3 (150-450); RED BLOOD COUNT 3.18 MIL/MM3 (4.50-5.90); RED CELL DISTRIBUTION WIDTH 14.5 % (11.6-17.2); WHITE BLOOD COUNT 7.4 TH/MM3 (4.0-11.0)
[2018-01-21] MEDS: DOCUSATE SODIUM 50 MG/SENNA 8.6 MG TAB PO SCH (08:45)
[2018-01-21] MEDS: OXYBUTYNIN CHLORIDE 5 MG TAB PO SCH (08:45)
[2018-01-21] MEDS: LACTOBACILLUS ACIDOPHILUS TAB PO SCH (08:45)
[2018-01-21] MEDS: CITALOPRAM HYDROBROMIDE 20 MG TAB PO SCH (08:45)
[2018-01-21] MEDS: PANTOPRAZOLE SOD 40 MG DELAYED RELEASE TAB PO SCH (08:46)
[2018-01-21] MEDS: SODIUM CHLORIDE 0.9% FLUSH 10 ML FLUSH IV FLUSH SCH (08:46)
--- NOTE | 2018-01-21 11:35 | HHI.PR ---
Subjective Remarks Patient reports he is feeling well. No evidence of GI bleeding. Eating well. No abdominal pain. Objective Vitals Vital Signs Date Time Temp Pulse Resp B/P (MAP) Pulse Ox O2 Delivery O2 Flow Rate FiO2 01/21/18 09:11 88 21 01/21/18 08:40 97.9 67 20 124/64 (84) 97 01/21/18 04:25 98.4 65 16 151/70 (97) 93 01/21/18 00:00 98.1 71 16 142/68 (92) 91 01/20/18 20:06 98.3 67 16 149/70 (96) 93 01/20/18 20:00 Room Air 01/20/18 17:00 94 Room Air 01/20/18 16:40 98.1 67 20 132/70 (90) 94 01/20/18 14:00 68 01/20/18 12:00 98.6 62 20 113/55 (74) 92 01/20/18 12:00 64 I/O 01/20/18 01/20/18 01/20/18 01/21/18 01/21/18 01/21/18 07:00 15:00 23:00 07:00 15:00 23:00 Intake Total 240 ml 120 ml Output Total 600 ml 300 ml 200 ml Balance -600 ml -60 ml -80 ml Intake Oral 240 ml 120 ml Output Urine Total 600 ml 300 ml 200 ml # Bowel Movements 2 0 Result Diagram: 01/21/18 0511 01/18/18 0609 Objective Remarks GENERAL: This is a well-nourished, well-developed patient, in no apparent distress. CARDIOVASCULAR: Normal rate and regular rhythm without murmurs, gallops, or rubs. RESPIRATORY: Good respiratory efforts. Breath sounds equal and clear to auscultation bilaterally. GASTROINTESTINAL: Abdomen soft, non-tender, non-distended. Normal active bowel sounds MUSCULOSKELETAL: Extremities without cyanosis, or edema. NEURO: Alert & Oriented x4 to person, place, time, situation. Moves all ext x4 PSYCH: Appropriate mood and affect. Procedures Colonoscopy Embolization of SMA with Gelfoam and 2 mm coil by interventional radiology A/P Problem List: (1) Syncope, vasovagal ICD Code: R55 - Syncope and collapse (2) AAA (abdominal aortic aneurysm) ICD Code: I71.4 - Abdominal aortic aneurysm, without rupture (3) Rectal bleed ICD Code: K62.5 - Hemorrhage of anus and rectum Assessment and Plan 72 years old male admitted for syncopal episode- likely from GIB Status post embolization of the SMA with Gelfoam/2 mm coils Acute anemia due to Lower GI bleed- likely diverticular bleed and from small hepatic flexure ulcer from embolization site Status post embolization of the SMA with Gelfoam/2 mm coils by IR 01/16 S/P repeat colonoscopy 01/19- small ulcer hepatic flexure area- embolization site , diverticuloses, no active bleeding or blood noted, hemorrhoids Rectal polyp status post cold biopsy by Dr. Stevens 01/16 Internal and external hemorrhoids History of peptic ulcer disease Low iron stores -Patient has stabilized with no further signs of bleeding. They requested a second opinion. Colorectal surgery was consulted. Awaiting input from them. continue on Pantoprazole po daily Docusate sodium/senna 1 tablet twice daily for bowel regimen H and h stable- states patient has brown stools Status post IV Venofer 200 mg x 1 on 01/20 Advise patient on diet- avoid seeds, nuts History of penile implant 3 Status post prostatectomy - voiding well Depressive disorder NOS Continue home medication for depression on citalopram 10 milligrams daily Essential hypertension Hyperlipidemia 4.8 cm AAA -evaluated previously by Dr. Bay 01/11 Holding home medication amlodipine 10 mg daily for hypertension- good BP readings Home medication atorvastatin 80 mg at night along with fish oil/cholecalciferol 1200/1000 1 tablet daily Cardiology consulted- seen by Dr Virk- for loop recorder evaluation - per report patient's refused COPD with ongoing tobaccoism- in remission Nasal cannula to maintain saturations greater than or equal to 92% Incentive spirometry while awake Albuterol/ipratropium aerosols every 4 hours with albuterol aerosols every 2 hours as needed for dyspnea Patient is on albuterol inhaler at home Nicotine patch 21 mg daily. Counseled on tobacco cessation. L2 sclerotic bone lesion -outpatient follow-up advised Prophylaxis -GI -pantoprazole -DVT -SCD - patient up and ambulating Discharge Planning Patient can probably be discharged today after he is evaluated by colorectal surgery. Liberty Zurita MD Jan 21, 2018 11:35
--- NOTE | 2018-01-21 15:39 | HHI.DCPOC ---
Discharge Care Plan Diagnosis: (1) Rectal bleed (2) Syncope, vasovagal (3) Rectal polyp (4) Hemorrhoid (5) AAA (abdominal aortic aneurysm) Goals to Promote Your Health * To prevent worsening of your condition and complications * To maintain your health at the optimal level Directions to Meet Your Goals Take your medications as prescribed Follow your dietary instruction Follow activity as directed Keep your appointments as scheduled Take your immunizations and boosters as scheduled If your symptoms worsen call your PCP, if no PCP go to Urgent Care Center or Emergency Room Smoking is Dangerous to Your Health. Avoid second hand smoke Call the 24-hour hour crisis hotline for domestic abuse at Liberty Zurita MD Jan 21, 2018 15:39
--- NOTE | 2018-01-21 16:12 | HHI.DS ---
Discharge Summary Admission Date Jan 18, 2018 at 09:07 Discharge Date: Jan 21, 2018 Admitting Diagnosis GI bleed (1) Syncope, vasovagal ICD Code: R55 - Syncope and collapse (2) AAA (abdominal aortic aneurysm) ICD Code: I71.4 - Abdominal aortic aneurysm, without rupture (3) Rectal bleed ICD Code: K62.5 - Hemorrhage of anus and rectum Procedures Colonoscopy Embolization of SMA with Gelfoam and 2 mm coil by interventional radiology Brief History - From Admission HPI from the admitting physician This is a 72-year-old male with past medical history as detailed below who presents to [facility] complaining of an episode of dark red blood in the stool and feeling weak. As per patient's who is at bedside states he passed out. The patient was recently admitted in [place] after an episode of diverticular bleed. The patient denies nausea, vomiting, hemoptysis , vomiting blood, fevers, chills, chest pain, shortness of breath, states he feels very weak and starts feeling dizzy when he sits up or stands up. The patient is on aspirin 81 mg daily which he took this morning. CBC/BMP: 01/21/18 0511 01/18/18 0609 Significant Findings Laboratory Tests Test 01/18/18 20:58 01/19/18 00:55 01/19/18 04:03 01/19/18 17:25 Hemoglobin 10.2 GM/DL (13.0-17.0) 9.3 GM/DL (13.0-17.0) 9.2 GM/DL (13.0-17.0) 9.5 GM/DL (13.0-17.0) Hematocrit 29.4 % (39.0-51.0) 26.4 % (39.0-51.0) 25.9 % (39.0-51.0) 27.0 % (39.0-51.0) Iron Level 20 MCG/DL (65-175) Total Iron Binding Capacity 242 MCG/DL (250-450) Percent Iron Saturation 8.3 % (20-50) Test 01/20/18 04:18 01/21/18 05:11 Hemoglobin 9.6 GM/DL (13.0-17.0) 9.7 GM/DL (13.0-17.0) Hematocrit 27.8 % (39.0-51.0) 28.2 % (39.0-51.0) Red Blood Count 3.18 MIL/MM3 (4.50-5.90) Imaging Last Impressions Abdominal Angiography 01/16/18 0000 Signed Impressions: CONCLUSION: 1. Angiography demonstrated active hemorrhage in the region of the hepatic f lexure. The small vessel feeding the site of hemorrhage was embolized with a sm all amount of Gelfoam and a 2 mm embolization coil. The patient tolerated the p rocedure well. Chest X-Ray 01/15/18 1015 Signed Impressions: CONCLUSION: No acute cardiopulmonary findings. GI Bleed Scan Nuclear Medicine 01/15/18 0000 Signed Impressions: CONCLUSION: 1. Negative GI bleeding study. PE at Discharge GENERAL: This is a well-nourished, well-developed patient, in no apparent distress. CARDIOVASCULAR: Normal rate and regular rhythm without murmurs, gallops, or rubs. RESPIRATORY: Good respiratory efforts. Breath sounds equal and clear to auscultation bilaterally. GASTROINTESTINAL: Abdomen soft, non-tender, non-distended. Normal active bowel sounds MUSCULOSKELETAL: Extremities without cyanosis, or edema. NEURO: Alert & Oriented x4 to person, place, time, situation. Moves all ext x4 PSYCH: Appropriate mood and affect. Hospital Course 72 years old male admitted for syncopal episode- likely from GIB Status post embolization of the SMA with Gelfoam/2 mm coils. Treatment course detailed below: Acute anemia due to Lower GI bleed- likely diverticular bleed and from small hepatic flexure ulcer from embolization site Status post embolization of the SMA with Gelfoam/2 mm coils by IR 01/16 S/P repeat colonoscopy 01/19- small ulcer hepatic flexure area- embolization site , diverticuloses, no active bleeding or blood noted, hemorrhoids Rectal polyp status post cold biopsy by Dr. Stevens 01/16 Internal and external hemorrhoids History of peptic ulcer disease Low iron stores -Patient has stabilized with no further signs of bleeding. They requested a second opinion. Colorectal surgery Dr. Herrera consulted but he indicated there was nothing else to offer and requested cancellation of the consult. H and h stable- Status post IV Venofer 200 mg x 1 on 01/20 Advise patient on diet- avoid seeds, nuts Aspirin held which can be started in a couple of weeks. History of penile implant 3 Status post prostatectomy - voiding well Depressive disorder NOS Continue home medication for depression on citalopram 10 milligrams daily Essential hypertension Hyperlipidemia 4.8 cm AAA -evaluated previously by Dr. Bay 01/11 Holding home medication amlodipine 10 mg daily for hypertension- good BP readings Home medication atorvastatin 80 mg at night along with fish oil/cholecalciferol 1200/1000 1 tablet daily Cardiology consulted- seen by Dr Virk- for loop recorder evaluation - per report patient's refused. Advised him to follow-up outpatient with his psychiatric assistant. COPD with ongoing tobaccoism- in remission Nasal cannula to maintain saturations greater than or equal to 92% Incentive spirometry while awake Albuterol/ipratropium aerosols every 4 hours with albuterol aerosols every 2 hours as needed for dyspnea Patient is on albuterol inhaler at home Nicotine patch 21 mg daily. Counseled on tobacco cessation. L2 sclerotic bone lesion -outpatient follow-up advised Discharge planning discussed at length with the patient and his . Pt Condition on Discharge: Good Discharge Disposition: Discharge Home Discharge Time: <= 30 minutes Discharge Instructions DIET: Follow Instructions for: Heart Healthy Diet Activities you can perform: Regular-No Restrictions Follow up Referrals: PCP Follow-up - 2 Weeks Continued Medications: Albuterol 18 GM Inh (Ventolin Hfa 18 GM Inh) 90 Mcg/Act Aer 2 PUFF INH Q4-6H PRN for SHORTNESS OF BREATH, #1 INHALER 0 Refills Amlodipine (Amlodipine) 10 Mg Tab 10 MG PO DAILY for Blood Pressure Management, #30 TAB 0 Refills Atorvastatin (Atorvastatin) 80 Mg Tab 80 MG PO HS for Cholesterol Management, #30 TAB 0 Refills Citalopram (Citalopram) 10 Mg Tab 10 MG PO DAILY for Control Depression, #30 TAB 0 Refills Fish Oil-Cholecalciferol (Fish Oil + D3) 1,200-1,000 Mg-Unit Cap 1 CAP PO DAILY for Nutritional Supplement, #30 CAP 0 Refills Oxybutynin (Ditropan) 5 Mg Tab 5 MG PO Q12HR for Urinary Symptom Managemen, #60 TAB 0 Refills Discontinued Medications: Aspirin (Aspirin Children's) 81 Mg Chew 81 MG CHEW DAILY, TAB 0 Refills Liberty Zurita MD Jan 21, 2018 16:12
--- NOTE | 2018-01-22 11:39 | HM ---
Date Performed: 01/20/2018 Time Performed: 20:01:00 HOOKUP DATE: 01/20/18 08:01:00 PM Wed ANALYSIS START TIME: 01/20/2018 8:06:00 PM ANALYSIS END TIME: 01/21/2018 5:08:28 PM PATIENT AGE: 72 PATIENT HEIGHT PATIENT WEIGHT DRUG LIST PATIENT DIAGNOSIS: gi bleed TEST NARRATIVE: The patient's average heart rate was 69 BPM. No episodes of tachycardia wer e noted. No episodes of bradycardia were noted. No pauses exceeding 2.0 seconds were noted. 236 ventricular ectopics, which represented < 1% of the total beat count, were noted. The highest ve ntricular ectopic frequency occurred from 09:00 PM to 10:00 PM Wed. During this time 26 VE(s) occurr ed. Ventricular ectopics were observed as 234 isolated beat(s) and as 1 couplet(s). No runs were no fallon. 2852 supraventricular ectopics, which represented 3% of the total beat count, were noted. T he highest supraventricular ectopic frequency occurred from 12:00 AM to 01:00 AM Lesley. During this ti me 656 SVE(s) occurred. No episodes of ST depression (defined as -1.0 mm or more) were noted in c hannel 1. No episodes of ST depression (defined as -1.0 mm or more) were noted in channel 2. No epi sodes of ST depression (defined as -1.0 mm or more) were noted in channel 3. TEST INTERPRETATION: The underlying rhythm is normal Sinus rhythm . Several brief runs of paroxysmal atrial tachycardia are recorded, the longest run 10 beats in dura tion. Signed by : Jesus Britton
== END 2018-01-21 17:09 | disposition home or self-care (01) | DRG 357 ==
LOC: NEPC 09:34 → NEDA 12:26 → NEPHCDU 16:40 → N07B 01-16 19:07 → HPAC 01-16 20:30 → N03A 01-16 21:54 → OBSVTOIN 01-18 09:07 → N04A 01-20 15:58
PROVIDERS: ADMIT Family Medicine; ATTEND Family Medicine
PROC: 0DBP8ZZ Excision of Rectum, Via Natural or Artificial Opening Endoscopic (ICD-10-PCS; 2018-01-16)
PROC: 0DB98ZX Excision of Duodenum, Via Natural or Artificial Opening Endoscopic, Diagnostic (ICD-10-PCS; 2018-01-16)
PROC: 0DB78ZX Excision of Stomach, Pylorus, Via Natural or Artificial Opening Endoscopic, Diagnostic (ICD-10-PCS; 2018-01-16)
PROC: 0DB38ZX Excision of Lower Esophagus, Via Natural or Artificial Opening Endoscopic, Diagnostic (ICD-10-PCS; 2018-01-16)
PROC: 04L53DZ Occlusion of Superior Mesenteric Artery with Intraluminal Device, Percutaneous Approach (ICD-10-PCS; principal; 2018-01-16 13:45)
PROC: 0DBP8ZX Excision of Rectum, Via Natural or Artificial Opening Endoscopic, Diagnostic (ICD-10-PCS; 2018-01-16 13:45)
PROC: 0DBM8ZX Excision of Descending Colon, Via Natural or Artificial Opening Endoscopic, Diagnostic (ICD-10-PCS; 2018-01-19)
DX: K57.31 Diverticulosis of large intestine without perforation or abscess with bleeding (principal); D62 Acute posthemorrhagic anemia; K63.3 Ulcer of intestine; R00.1 Bradycardia, unspecified; J44.9 Chronic obstructive pulmonary disease, unspecified; K92.1 Melena; I10 Essential (primary) hypertension; F32.9 Major depressive disorder, single episode, unspecified; R55 Syncope and collapse; I71.4 Abdominal aortic aneurysm, without rupture; Z79.82 Long term (current) use of aspirin; K44.9 Diaphragmatic hernia without obstruction or gangrene; K62.1 Rectal polyp; K64.4 Residual hemorrhoidal skin tags; K64.8 Other hemorrhoids; F17.210 Nicotine dependence, cigarettes, uncomplicated; Z87.11 Personal history of peptic ulcer disease; Z90.79 Acquired absence of other genital organ(s); R53.1 Weakness; E78.5 Hyperlipidemia, unspecified; I73.9 Peripheral vascular disease, unspecified; K55.20 Angiodysplasia of colon without hemorrhage; M89.8X9 Other specified disorders of bone, unspecified site; Z85.46 Personal history of malignant neoplasm of prostate; Z86.010 Personal history of colon polyps
CPT/HCPCS: 36247; 36430; 37244; 71045; 75726; 75774; 75898; 76937; 78278; 80053; 82378; 82550; 82552; 82728; 83540; 83550; 83605; 83735; 84100; 84443; 84484; 85014; 85018; 85025; 85027; 85610; 85730; 86850; 86900; 86901; 86920; 87641; 88305; 88312; 93005; 93225; 93226; 93306; 94150; 94664; 95819; 96360; 96361; A9560; C1760; C1769; C1887; C1894; G0378; J0690; J1642; J1756; J2060; J2250; J2370; J3010; J7030; J7120; P9016; Q9967